=== PATIENT | male | born 1950 | race Caucasian/White ===

== ENCOUNTER → 2019-07-05 10:18 | Outpatient (CLI) | payer MEDICARE, SELFPAY ==
[2015-01-14 10:43] VITALS: BMI 36.9
[2019-07-05 13:29] LABS: M R Staph aureus DNA By PCR POSITIVE (Negative); Probe Check PASS
== END ==
PROVIDERS: Family Provider Internal Medicine; PCP Internal Medicine; Referring Provider Nurse Practitioner Gerontology; Visit Provider Nurse Practitioner Gerontology
DX: L98.9 Disorder of the skin and subcutaneous tissue, unspecified (principal)
CPT/HCPCS: 87641

== ENCOUNTER → 2019-08-21 09:48 | Outpatient (CLI) | payer MEDICARE, SELFPAY ==
--- NOTE | 2019-08-21 09:58 | RAD_ITS ---
HISTORY: CHRONIC RIGHT HIP PAIN ADDITIONAL HISTORY: None provided. TECHNIQUE: AP and lateral views of the right hip with AP pelvis Number of images including paperwork: 3 COMPARISON: None FINDINGS: BONES: No acute fracture. JOINTS: No subluxation. Severe degenerative changes of the right hip. Moderate degenerative changes of the left hip. Degenerative changes of the lower lumbar spine, sacroiliac joints and symphysis pubis. SOFT TISSUES: No distinct foreign body. Vascular calcifications. RAD/HIP, UNI W/ Pelvis 2-3 Views IMPRESSION: Degenerative changes without acute osseous abnormality. at 0548 Reported and signed by: Jo-Ann Guaman MD Electronically Signed: Jo-Ann Guaman MD at 5:48 EST Tel , Service support ,
== END ==
PROVIDERS: PCP Nurse Practitioner; Referring Provider Nurse Practitioner; Visit Provider Nurse Practitioner
DX: M16.11 Unilateral primary osteoarthritis, right hip (principal)
CPT/HCPCS: 73502

== ENCOUNTER → 2019-09-28 09:01 | Outpatient (CLI) | payer MEDICARE, SELFPAY ==
[2015-01-14 10:43] VITALS: BMI 36.9
--- NOTE | 2019-09-28 09:06 | RAD_ITS ---
STUDY: X-RAY - LEFT HAND REASON FOR EXAM: Male, 68 years old. LEFT RING FINGER PAIN AT PIP, NKI TECHNIQUE: 3 view(s) of the hand. COMPARISON: None. FINDINGS: Normal radiocarpal articulation. Normal distal radioulnar joint. Normal visualized carpal bones. Normal carpal articulations Normal carpometacarpal articulation of the thumb. Normal second through fifth carpometacarpal joints. Normal metacarpi. Normal metacarpophalangeal joint of the thumb. Normal interphalangeal joint of the thumb. Normal proximal and distal phalanges of the thumb. Normal metacarpophalangeal joints of the second through fifth fingers. Normal proximal and distal interphalangeal joints of the second through fifth fingers. Normal phalanges of the second through fifth fingers. The soft tissue structures are unremarkable. RAD/Hand Min 3 Views IMPRESSION: Normal x-ray examination of the hand. Electronically Signed: Oskar Adams MD at 12:14 EST Tel , Service support ,
== END ==
PROVIDERS: PCP Nurse Practitioner; Referring Provider Nurse Practitioner; Visit Provider Nurse Practitioner
DX: M25.542 Pain in joints of left hand (principal)
CPT/HCPCS: 73130

== ENCOUNTER → 2020-03-12 07:09 | Outpatient (CLI) | payer MEDICARE, SELFPAY ==
--- NOTE | 2020-03-12 07:33 | MRI_ITS ---
STUDY: MRI BRAIN WITH AND WITHOUT CONTRAST REASON FOR EXAM: Male, 69 years old. GRADUAL MEMORY LOSS OVER 3 YRS TECHNIQUE: Standardized multiplanar fat and water weighted pulse sequences were obtained. IV 23cc dotarem was administered for the contrast portion of the examination. COMPARISON: None. FINDINGS: There is mild cerebral atrophy with widening of the extra-axial spaces and ventricular dilatation. There are a limited number of small white matter hyperintensities, distributed throughout the deep white matter tracts of the cerebral hemispheres, consistent with mild chronic white matter ischemic changes. Chronic lacunar infarct of the left internal capsule. There is no evidence for recent intracranial ischemia or other cause of cytotoxic edema on diffusion weighted imaging (DWI). Normal T2* images of the brain without demonstrated susceptibility artifact. There is no demonstrated hemosiderin stain. Normal bilateral basal ganglia. Normal thalami. There is no extra-axial fluid accumulation. Normal flow voids within the major intracranial circulation suggesting patency by spin echo criteria. Normal venous enhancement. There is no enhancing intra-axial or extra-axial abnormality. Normal sella turcica, pituitary gland, infundibular stalk, optic chiasm and hypothalamus. Normal tectal plate and pineal gland. Normal midbrain, mil and medulla. Normal cerebellum. Normal basal cisterns. Normal bilateral temporal bones. Normal bilateral internal auditory canals. No demonstrated orbital abnormality, within the constraints of a routine brain study. There is mucoperiosteal inflammatory disease of the paranasal sinuses consistent with mild chronic sinusitis. Normal calvarium and skull base. Normal visualized soft tissue structures. Normal visualized upper cervical spine. MRI/Brain W/WO Contrast IMPRESSION: Involutional changes of the brain, as described above. Electronically Signed: Oskar Adams MD at 10:17 EDT Tel , Service support ,
[2020-03-12 09:06] LABS: CREATININE FINGERSTICK 1.4 mg/dL (0.70-1.30)
== END ==
PROVIDERS: PCP Nurse Practitioner; Referring Provider Nurse Practitioner; Visit Provider Nurse Practitioner
DX: R41.89 Other symptoms and signs involving cognitive functions and awareness (principal); R46.89 Other symptoms and signs involving appearance and behavior
CPT/HCPCS: 70553; A9575

== ENCOUNTER → 2020-08-27 07:45 | Outpatient (CLI) | payer MEDICARE, SELFPAY ==
--- NOTE | 2020-08-27 07:50 | RDU_ITS ---
Reason For Study: Hypertension Right Renal Artery Left Renal Artery Right renal artery ostium Left renal artery ostium 147.1/39 128.6/23.3 RSV/EDV. PSV/EDV. Right renal artery proximal Left renal artery proximal PSV/EDV 133/16.7 PSV/EDV. 162.7/44.1 . Right renal artery mid 111.1/18.9 Left renal artery mid 143.4/38.4 PSV/EDV. PSV/EDV . Right renal artery distal Left renal artery distal 146/35.7 135.3/22.8 PSV/EDV. PSV/EDV. Right RAR 1.43. Left RAR 1.73. Right Renal Parenchyma Left Renal Parenchyma Upper Pole Medula 36.6/9 PSV/EDV. Left upper pole medulla 36.1/6.4 Right upper pole medulla EDR 0.24 . PSV/EDV . Right upper pole medulla R.I. Left upper pole medulla EDR 0.18 . 0.76 . Left upper pole medulla R.I. 0.82 . Upper Sarabjit Cortx 18.2/5.3 PSV/EDV. UP Cortex 17.4/4.2 PSV/EDV. Right upper pole cortex EDR 0.29 . Left upper pole cortex EDR 0.24 . Right upper pole cortex R.I. 0.71 . Left upper pole cortex R.I. 0.76 . Right lower Pole medulla 28/5.9 Left lower Pole medulla 33.3/7.5 PSV/EDV . PSV/EDV . Right lower pole medulla EDR 0.21 . Left lower pole medulla EDR 0.22 . Right lower pole medulla R.I. Left lower pole medulla R.I. 0.78 . 0.79 . Lower Pole Cortx 15.7/4.2 PSV/EDV. Lower Pole Cortex 17.6/4.7 PSV/EDV. Left lower pole cortex EDR 0.27 . Right lower pole cortex EDR 0.27 . Left lower pole cortex R.I. 0.73 . Right lower pole cortex R.I. 0.73 . Left Renal Hilar Right Renal Hilar LT Hilar avg 45.3/10.6 PSV/EDV . Right Hilar avg 44.6/10.2 PSV/EDV. Left hilar acceleration time 50 Right hilar acceleration time 50 m/sec. m/sec. Left Renal Dimensions Right Renal Dimensions Left kidney size 12.23 cm . Right kidney size 13.67 cm . Left cortical dimension 1.86 cm . Right cortical dimension 1.93 cm . Nonvascualrized structure noted on the left kidney that measures 4.43 x 4.37 cm. Aorta Proximal abdominal aorta 1.80 x 1.82 cm . Proximal abdominal aorta peak systolic velocity is 94.3 cm/sec . Distal abdominal aorta 1.51 x 1.51 cm . Distal abdominal aorta peak systolic velocity is 110.7 cm/sec . Interpretation Summary Maximal aortic diameter 1.8 x 1.82 cm. Less than 60% stenosis bilateral renal arteries Right renal length maintained at 13.67 cm Left renal length maintained at 12.23 cm Nonvascular left renal cortical structure measuring 4.1 x 4.22 cm, findings suggest possible cyst. This would correlate with previous imaging of July 23, 2013 suggesting a left renal cyst Ordering Physician: Nithya Tracy Referring Physician: Ewa Bell Performed By: Leila Perdue RVT
== END ==
PROVIDERS: PCP Nurse Practitioner; Referring Provider Internal Medicine; Visit Provider Internal Medicine
DX: I10 Essential (primary) hypertension (principal)
CPT/HCPCS: 93975

== ENCOUNTER 2021-06-20 16:35 | Emergency (ER) | payer MEDICARE, SELFPAY ==
[2021-06-20 16:36] VITALS: BP 171/100; PULSE 73; RESP 18; TEMP 35.6; O2SAT 98; BMI 34.8
--- NOTE | 2021-06-20 16:48 | EKG12_ITS ---
Test Reason : NAUSEA Blood Pressure : / mmHG Vent. Rate : 068 BPM Atrial Rate : 068 BPM P-R Int : 180 ms QRS Dur : 106 ms QT Int : 424 ms P-R-T Axes : 022 -02 089 degrees QTc Int : 450 ms Normal sinus rhythm Nonspecific T wave abnormality Abnormal ECG Confirmed by KATHIE WILLS, CHRIS ([id number]), online content editor JOHNATHAN FARRIS ([id number]) on 06/22/2021 1:26:59 PM Referred By: MEG Confirmed By:CHRIS VÁZQUEZ MD
--- NOTE | 2021-06-20 16:49 | EDS_ITS ---
HPI History of Present Illness Chief Complaint: Nausea/Vomiting Detail of Chief Complaint: Nausea not feeling well for about a week Informant: patient Narrative Narrative: Patient presents to the emergency department stating he has been very nauseated over the last week. Patient also states his blood sugars have been erratic. He saw his nurse practitioner Sheree Spivey 3 days ago and had some blood work. Patient denies any chest pain or shortness of breath. He denies fever. He has had a little bit of a cough and sinus drainage. Patient has been taken Mucinex. Today he became very nauseated again so he came in. He denies abdominal pain. He denies diarrhea. He is not actually vomited. Patient has had the Covid vaccine. Prior similar symptoms: No [facility] Medical History (Updated 06/20/21 @ 19:[address] 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 Stroke Type 2 diabetes mellitus with hyperglycemia Home Medications fluticasone propionate 1 spray NASAL BID 07/10/13 [History Last Taken Unknown] hydrochlorothiazide 25 mg PO DAILY 07/10/13 [History Last Taken Unknown] lansoprazole [Prevacid] 30 mg PO DAILY 07/10/13 [History Last Taken Unknown] potassium chloride [Klor-Con 10] PO DAILY 07/10/13 [History Last Taken Unknown] simvastatin 40 mg PO QHS 07/10/13 [History Last Taken Unknown] tamsulosin 0.8 mg PO DAILY 07/10/13 [History Last Taken Unknown] amlodipine 5 mg tablet 5 mg PO DAILY tab 09/30/20 [History Last Taken Unknown] aspirin 81 mg tablet,delayed release 81 mg PO DAILY 09/30/20 [History Last Taken Unknown] atorvastatin 80 mg tablet 80 mg PO QPM tab 09/30/20 [History Last Taken Unknown] citalopram 40 mg tablet 40 mg PO DAILY tab 09/30/20 [History Last Taken Unknown] dapagliflozin 10 mg tablet tab PO 09/30/20 [History Last Taken Unknown] dextroamphetamine-amphetamine 10 mg tablet 10 tab PO DAILY 09/30/20 [History Last Taken Unknown] donepezil 5 mg tablet 5 mg PO QHS tab 09/30/20 [History Last Taken Unknown] fenofibrate nanocrystallized 145 mg tablet 145 mg PO DAILY #1 tab 09/30/20 [Rx Last Taken Unknown] metformin 1,000 mg tablet 1,000 mg PO BID tab 09/30/20 [History Last Taken Unknown] semaglutide 1 mg/dose (2 mg/1.5 mL) subcutaneous pen injector 1 mg SC QWEEK #9 ml 09/30/20 [Rx Last Taken Unknown] tolterodine 4 mg capsule,extended release 24 hr 4 mg PO DAILY cap 09/30/20 [History Last Taken Unknown] amlodipine 10 mg tablet 10 mg PO DAILY tab 04/02/21 [History Last Taken Unknown] ascorbic acid (vitamin C) 1,000 mg tablet 1 g PO Q6H 04/02/21 [History Last Taken Unknown] cholecalciferol (vitamin D3) 125 mcg (5,000 unit) capsule 125 mcg PO DAILY 04/02/21 [History Last Taken Unknown] donepezil 10 mg tablet 10 mg PO DAILY tab 04/02/21 [History Last Taken Unknown] folic acid 800 mcg tablet 0.8 mg PO DAILY 04/02/21 [History Last Taken Unknown] levothyroxine 150 mcg tablet 150 mcg PO DAILY 04/02/21 [History Last Taken Unknown] metoprolol succinate 25 mg tablet,extended release 24 hr 25 tablet PO DAILY 04/02/21 [History Last Taken Unknown] zinc 50 mg tablet 50 mg PO DAILY 04/02/21 [History Last Taken Unknown] glipizide 10 mg PO DAILY 06/20/21 [History Last Taken Unknown] losartan 100 mg PO DAILY 06/20/21 [History Last Taken Unknown] ondansetron 4 mg PO Q8H PRN PRN #10 tab 06/20/21 [Rx Last Taken Unknown] Allergy/AdvReac Type Severity Reaction Status Date / Time No Known Allergies Allergy Verified 06/20/21 16:37 Family History (Updated 10/02/20 @ 11:[address] Kavon Mathews MD) Other Diabetes Social History (Updated 10/02/20 @ 11:[address] Kavon Mathews MD) Smoking Status: Never smoker ROS ROS ED Constitutional Constitutional ED: Reports systems reviewed and no addt'l complaints, except as documented; Denies body ache(s), change in weight or chills Eyes Eyes: Denies acute decrease in peripheral vision, change in vision, double vision or loss of vision ENT ENT ED: Reports none; Denies ear pain, lip swelling, loss taste/smell, neck pain, otalgia or sore throat Cardiovascular Cardiovascular: Reports none; Denies abdominal pain, chest pain with activity, leg edema, lightheadedness, palpitations, rapid heart rate or syncope Respiratory/Chest Respiratory/Chest: Reports none and cough; Denies change in mental status, dry cough, dyspnea, hemoptysis, shortness of breath at rest or shortness of breath with exertion Gastrointestinal Gastrointestinal: Reports none, nausea and other Details: Decreased p.o. intake ; Denies abdominal pain, change in stool character, diarrhea, hematemesis, hematochezia, melena, rectal bleeding or vomiting Genitourinary Genitourinary ED: Reports none; Denies abdominal discomfort, anuria, dysuria, genital pain or polyuria Musculoskeletal Musculoskeletal: Reports none; Denies arthralgias, back pain, difficulty walking, extremity pain, muscle weakness or myalgias Integumentary Reports none; Denies abscess or rash Neurologic Neurologic: Reports none; Denies abnormal gait, confusion, focal weakness, frequent falls, headache(s), loss of vision, numbness, paresthesias, radicular pain, vertigo or weakness Psychiatric Psychiatric: Reports systems reviewed and no addt'l complaints, except as documented and none; Denies behavioral changes, confusion, difficulty concentrating, hallucinations, suicidal ideation, tactile hallucinations or visual hallucinations Endocrine Endocrinology: Denies none, cold intolerance, excessive sweating, fatigue or heat intolerance Hematologic/Lymphatic Hematologic/Lymphatic: Reports none; Denies anemia, easy bleeding or easy bruising Allergic/Immunologic Allergic/Immunologic ED: Denies as per HPI, none, lip swelling, mouth swelling, throat swelling, tongue swelling or hives EXAM Physical Exam Const Vital Signs: 06/20/21 16:36 Temperature 96.1 F L Temperature Source Temporal Pulse Rate 73 Respiratory Rate 18 Blood Pressure 171/100 H Blood Pressure Mean 123 Pulse Ox 98 Oxygen Delivery Method Room Air Positive well nourished and well developed General Appearance ED: well developed and NAD HEENT Reports TM's clear and moist mucous membranes normocephalic and atraumatic; Negative for trauma or tenderness Tympanic Membrane ED: Yes TM's clear Eyes PERRL and EOMs intact bilaterally General Eye ED: Negative for pale conjunctiva or scleral icterus Neck no lymphadenopathy, supple and no JVD General: Negative for tenderness Chest Wall inspection of chest normal and palpation of chest normal Chest: Negative for tenderness Resp normal respiratory effort and clear to auscultation bilaterally Effort and Inspection: Negative for respiratory distress or pain with movement Auscultation: Negative for rhonchi, wheezes or diminished lung sounds Cardio regular rate, regular rhythm, S1 normal heart sound, S2 normal heart sound and no murmurs Peripheral Pulses: pulses 2+ throughout GI normal to inspection, nondistended, normoactive bowel sounds, soft to palpation, non-tender, non-distended and no masses Back/Spine no CVA tenderness and no thoracic nor lumbar tenderness Extremity normal to inspection General Extremety ED: Negative for edema General Extremity: Negative for edema Neuro oriented x3, CN's II-XII intact bilaterally, no sensory deficits noted and gait normal Sensorium / Orientation: awake, alert, oriented to person, oriented to place and oriented to time Motor Exam: strength 5/5 throughout and strength abnormal Psych mental status grossly normal Skin no rashes or lesions noted and no wounds MDM MDM MDM Narrative Medical decision making narrative: IV line established on arrival. Patient was given Zofran 4 mg IV. He had good relief of his nausea with that. Work-up in the department is unremarkable. Etiology of his nausea is unclear. I will write him a prescription for some Zofran and have him follow-up with his primary care physician has he has an appointment in 5 days. Patient advised to return if vomiting, severe abdominal pain, or condition should worsen anyway. Lab Data Attestation: I reviewed the patient's lab results. Labs: Laboratory Results - last 24 hr 06/20/21 06/20/21 06/20/21 16:50 16:50 17:30 WBC 7.1 RBC 4.47 L Hgb 14.5 Hct 42.2 MCV 94.4 H MCH 32.4 H MCHC 34.4 RDW Std Deviation 45.9 H RDW Coeff of Misael 13.2 Plt Count 149 L MPV 10.0 Immature Gran % (Auto) 1.300 H Neut % (Auto) 71.8 H Lymph % (Auto) 13.2 L Yates % (Auto) 7.6 Eos % (Auto) 5.3 H Baso % (Auto) 0.8 Absolute Neuts (auto) 5.1 Absolute Lymphs (auto) 0.94 Nucleated RBC % 0 Sodium 134 L Potassium 4.3 Chloride 101 Carbon Dioxide 28.0 Anion Gap 5 BUN 30 H Creatinine 1.71 H Estim Creat Clear Calc 42.81 Est GFR (MDRD) Af Amer 51 L Est GFR (MDRD) Non-Af 42 L BUN/Creatinine Ratio 17.5 Glucose 70 L Calcium 9.3 Total Bilirubin 0.60 AST 48 H ALT 81 H Alkaline Phosphatase 56 Troponin I High Sens 15 Total Protein 8.0 Albumin 3.9 Globulin 4.1 Albumin/Globulin Ratio 1.0 Lipase 290 Urine Color Yellow Urine Clarity Sl. Cloudy Urine pH 6.0 Ur Specific Garrison 1.015 Urine Protein 30 H Urine Glucose (UA) 1000 H Urine Ketones Negative Urine Occult Blood Negative Urine Nitrite Negative Urine Bilirubin Negative Urine Urobilinogen 1 H Ur Leukocyte Esterase Negative Urine RBC 0 SEEN Urine WBC 0 SEEN Ur Squamous Epith Cells 0 SEEN Urine Bacteria 0 SEEN Urine Mucus 0 SEEN Radiography Chest X-Ray - ED: 1 View Diagnostic Testing: Clinical Impression(s) from Imaging Studies Chest X-Ray 06/20/21 17:59 IMPRESSION: No acute cardiopulmonary process. Electronically Signed: Chase Morton MD (Brooks) at 18:28 EST , Service support , 1 view chest x-ray obtained interpreted by myself as no acute disease process. EKG Initial EKG: Attestation: I personally reviewed and interpreted this EKG as follows: Comments: Sinus rhythm with a ventricular rate of 68 bpm with no acute ST segment changes. Discharge Plan Triage Chief Complaint: Nausea/Vomiting ED Provider: Juan Ocampo Dx/Rx/DC Orders Clinical Impression: Nausea Instructions: Nausea Vomit Control, ED Vomiting (Adult) Prescriptions: New ondansetron [ondansetron] 4 MG tablet 4 mg PO Q8H PRN PRN (Reason: Nausea) Qty: 10 RF: 0 No Action aspirin [Adult Aspirin Regimen] 81 mg tablet,delayed release (DR/EC) 81 mg PO DAILY RF: 0 amlodipine 5 mg tablet 5 mg PO DAILY RF: 0 citalopram 40 mg tablet 40 mg PO DAILY RF: 0 metformin 1,000 mg tablet 1,000 mg PO BID RF: 0 atorvastatin 80 mg tablet 80 mg PO QPM RF: 0 donepezil 5 mg tablet 5 mg PO QHS RF: 0 dapagliflozin 10 mg tablet PO RF: 0 dextroamphetamine-amphetamine 10 mg tablet 10 tab PO DAILY RF: 0 tolterodine 4 mg capsule,extended release 24hr 4 mg PO DAILY RF: 0 fenofibrate nanocrystallized 145 mg tablet 145 mg PO DAILY Qty: 1 RF: 0 Ozempic 1 mg/dose (2 mg/1.5 mL) pen injector 1 mg SC QWEEK Qty: 9 RF: 1 amlodipine 10 mg tablet 10 mg PO DAILY RF: 0 donepezil 10 mg tablet 10 mg PO DAILY RF: 0 metoprolol succinate 25 mg tablet extended release 24 hr 25 tablet PO DAILY RF: 0 folic acid 800 mcg tablet 0.8 mg PO DAILY RF: 0 levothyroxine 150 mcg tablet 150 mcg PO DAILY RF: 0 cholecalciferol (vitamin D3) 125 mcg (5,000 unit) capsule 125 mcg PO DAILY RF: 0 ascorbic acid (vitamin C) 1,000 mg tablet 1 g PO Q6H RF: 0 zinc 50 mg tablet 50 mg PO DAILY RF: 0 simvastatin 40 MG tablet 40 mg PO QHS RF: 0 tamsulosin 0.4 MG capsule 0.8 mg PO DAILY RF: 0 fluticasone propionate 1 SPRAY spray,suspension 1 spray NASAL BID RF: 0 potassium chloride [Klor-Con 10] 10 MEQ tablet extended release PO DAILY RF: 0 lansoprazole [Prevacid] 30 MG capsule 30 mg PO DAILY RF: 0 hydrochlorothiazide 25 MG tablet 25 mg PO DAILY RF: 0 glipizide 5 mg tablet extended release 24hr 10 mg PO DAILY RF: 0 losartan 100 mg tablet 100 mg PO DAILY RF: 0 Primary Care Provider: Ewa Bell NP Referrals: Ewa Bell NP, [employer] [Primary Care Provider] - 3-5 Days Disposition Disposition: Home, Self Care
[2021-06-20] MEDS: 0.9% Normal Saline 1,000 ML 150 ML IV (16:57)
[2021-06-20] MEDS: Ondansetron 4 MG/2 ML Vial IV (16:57)
[2021-06-20 17:01] LABS: Absolute Lymphocyte Count 0.94 X10^3/uL (0.83-4.51); Absolute Neutrophil Count 5.1 X10^3/uL (2.0-7.7); Basophil# 0.06 X10^3/uL; Basophil% 0.8 % (0-1); Eosinophil# 0.38 X10^3/uL; Eosinophils% 5.3 % (0-5); Hematocrit 42.2 % (40-54); Hemoglobin 14.5 g/dL (13.0-16.5); Lymphocyte # 0.94 X10^3/ul (0.83-4.51); Lymphocyte % 13.2 % (19-41); Mean Corp Hgb Conc 34.4 g/dL (32-36); Mean Corpuscular Hgb 32.4 pg (27.0-32.0); Mean Corpuscular Volume 94.4 fL (80-94); Monocyte# 0.54 X10^3/uL; Monocyte% 7.6 % (0-10); NRBC Flagged by Analyzer 0 % (0-5); Neutrophil # 5.13 X10^3/uL (2.7-7.7); Neutrophil % 71.8 % (47-70); Platelet Count 149 K/mm3 (150-450); RBC Distribution Width CV 13.2 % (11.6-14.6); RBC Distribution Width SD 45.9 fl (35.1-43.9); Red Blood Count 4.47 M/mm3 (4.6-6.2); White Blood Count 7.1 K/mm3 (4.4-11.0)
[2021-06-20 17:21] LABS: AST(SGOT) 48 U/L (15-37); Alanine Aminotransfer ALT/SGPT 81 U/L (16-61); Albumin, Serum 3.9 g/dL (3.2-5.0); Alkaline Phosphatase 56 U/L (45-117); Anion Gap 5 (5-15); BUN 30 mg/dL (7-18); BUN/Creat Ratio 17.5 RATIO (10-20); Calcium,Total 9.3 mg/dL (8.5-10.1); Chloride 101 mmol/L (98-107); Creatinine, Serum 1.71 mg/dL (0.70-1.30); EST Glomerular Filtration Rate 42 mL/min (>60); Est Glom Filt Rate - Afr Amer 51 mL/min (>60); Estimated Creatinine Clearance 42.81 ml/min; Globulin 4.1 g/dL (2.2-4.2); Glucose 70 mg/dL (74-106); Lipase 290 U/L (73-393); Potassium 4.3 mmol/L (3.5-5.1); Sodium Level 134 mmol/L (136-145); Troponin-I HS 15 pg/mL (3.0-78.0)
[2021-06-20 17:44] LABS: Bacteria 0 SEEN /hpf (None Seen); Mucous, Urine 0 SEEN /hpf (<or=2+); Red Blood Cells-Urine 0 SEEN /hpf (0-5); Squamous Epithelial Cells - UA 0 SEEN /hpf (0-5); White Blood Cells 0 SEEN /hpf (0-5)
[2021-06-20 17:45] LABS: Color, Urine Yellow (Yellow); Glucose, Dipstick 1000 mg/dl (Normal); Ketone-Dipstick Negative (Negative); Leukocyte Esterase-Dipstick Negative /ul (Negative); Nitrite-Dipstick Negative (Negative); Occult Blood-Urine Negative /ul (Negative); Protein-Dipstick 30 mg/dl (Negative); Specific Gravity, Urine 1.015 (1.002-1.030); Urine Bilirubin Dipstick Negative (Negative); Urine Clarity Sl. Cloudy (Clear); Urine Urobilinogen 1 mg/dl (Normal)
--- NOTE | 2021-06-20 17:59 | RAD_ITS ---
STUDY: X-RAY CHEST REASON FOR EXAM: Male, 70 years old. cough TECHNIQUE: AP COMPARISON: None. FINDINGS: Granulomata of the left lower lobe. No airspace consolidation. There is no demonstrated pleural abnormality. Normal size heart. Normal mediastinum and genaro. Normal visualized pulmonary arteries. There is atherosclerotic calcification of the aortic arch with tortuosity. Normal visualized thoracic spine. Normal visualized ribs, clavicles, and shoulders. There is no demonstrated abnormality of the visualized soft tissue structures of the upper abdomen. RAD/Chest 1 View (Portable) IMPRESSION: No acute cardiopulmonary process. Electronically Signed: Chase Morton MD (Brooks) at 18:28 EST , Service support ,
[2021-06-20 19:24] VITALS: BP 110/69; PULSE 70; RESP 15; O2SAT 98
== END 2021-06-20 19:28 | disposition home or self-care (01) ==
PROVIDERS: Emergency Provider Emergency Medicine; PCP Nurse Practitioner
DX: R11.0 Nausea (principal); I10 Essential (primary) hypertension; E11.42 Type 2 diabetes mellitus with diabetic polyneuropathy; E78.2 Mixed hyperlipidemia; Z79.82 Long term (current) use of aspirin; Z79.84 Long term (current) use of oral hypoglycemic drugs; Z79.899 Other long term (current) drug therapy; Z86.73 Personal history of transient ischemic attack (TIA), and cerebral infarction without residual deficits
CPT/HCPCS: 71045; 80053; 81001; 83690; 84484; 85025; 87426; 93005; 96361; 96374; 99284; J7030; A4216; J2405

== ENCOUNTER 2021-08-19 13:40 | Outpatient (CLI) | payer MEDICARE, SELFPAY ==
--- NOTE | 2021-08-19 14:00 | PET_ITS ---
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 COMPARISON EXAMINATION: None available TECHNIQUE: Following the intravenous administration of F-18 deoxyglucose, multiplanar image acquisitions of the neck, chest, abdomen and pelvis to level of mid thigh, obtained at one hour post radiopharmaceutical administration contemporaneously interpreted with the current CT of the neck, chest, abdomen and pelvis to level of mid thigh, dated 08/19/21 via coregistration reveal: HEIGHT: 72 inches. WEIGHT: 246 lbs. FINDINGS: 1. There is no quantitative scintigraphic evidence of abnormal increased glucose metabolism on meticulous inspection of whole body acquisitions to include all three axis reconstructions. 2. Normal physiologic distribution of the radiopharmaceutical is apparent in the hepatic and splenic parenchyma, both renal units, bladder and visualized intestinal tract. The visualized portion of the cerebral cortical-subcortical structures demonstrate symmetric and preserved glucose metabolism. Diffuse radiopharmaceutical concentration is noted in all four quadrants of the abdomen and pelvis. Prominent tracer uptake is observed in the oral cavity in proximity to dental hardware placement most consistent with metallic reconstruction artifact. (Pau, et al, AJR [id number], 2002). Pertinent CT findings are as follows: CHEST: There is atherosclerotic calcification defined in the thoracic aorta without evidence of dilatation-aneurysm formation. Coronary arterial calcification is observed. There are no parenchymal densities-nodules defined in the right and left hemithorax with discernible increased tracer concentration. Bilateral subcentimeter axillary soft tissue densities are ametabolic. ABDOMEN AND PELVIS: Calcified granuloma formation is encountered in the splenic parenchyma. There is atherosclerotic calcification defined in the abdominal aorta without evidence of dilatation-aneurysm formation. Abdominal-pelvic arterial calcification is defined. Bilateral fat containing inguinal hernias are noted. Right-left inguinal soft tissue densities with fatty hilus are ametabolic. Colonic diverticulosis is defined without evidence of diverticulitis. Subtle dystrophic calcification is manifest within the prostate gland without evidence of increased tracer uptake. SKELETAL: Degenerative changes are noted in the cervical, thoracic and lumbar spine without evidence of increased radiopharmaceutical concentration. PET/PET/CT Tumor Base -Thigh Init IMPRESSION: 1. NEGATIVE EXAMINATION. There is no definitive quantitative scintigraphic evidence of recurrent-metastatic/viable neoplasm. Electronic Signature Oskar Menard D.O. Accurate Quantification of SUVs for this report are calculated using the exclusive [employer]. ([place]. Patent No. [id number] [id number] 983). Standardization and correction of the FDG SUV metric via [employer] technology allow for vendor non-specific objective quantitative examination comparison and optimization of the sensitivity and specificity of the FDG PET-CT examination. Electronically Signed: Oskar Menard DO at 22:38 EST Tel , Service support ,
== END 2021-08-19 23:59 | disposition home or self-care (01) ==
LOC: ONC 13:41
PROVIDERS: PCP Nurse Practitioner; Referring Provider Nurse Practitioner; Visit Provider Nurse Practitioner
DX: C10.8 Malignant neoplasm of overlapping sites of oropharynx (principal)
CPT/HCPCS: 78815; A9552

== ENCOUNTER 2021-09-05 08:47 | Outpatient (CLI) | payer MEDICARE, SELFPAY ==
--- NOTE | 2021-09-05 09:00 | MRI_ITS ---
STUDY: MRI BRAIN WITHOUT CONTRAST REASON FOR EXAM: Male, 70 years old. DEMENTIA TECHNIQUE: Standardized multiplanar fat and water weighted pulse sequences were obtained. COMPARISON: 03/12/2020 FINDINGS: There is mild cerebral atrophy with widening of the extra-axial spaces and ventricular dilatation. There are a limited number of small white matter hyperintensities, distributed throughout the deep white matter tracts of the cerebral hemispheres, consistent with mild chronic white matter ischemic changes. Normal bilateral basal ganglia. Normal thalami. There is no extra-axial fluid accumulation. Normal sella turcica, pituitary gland, infundibular stalk, optic chiasm and hypothalamus. Normal tectal plate and pineal gland. There are chronic white matter ischemic changes of the mil. The midbrain and medulla are otherwise normal. Normal cerebellum. Moderate paranasal sinus disease. MRI/Brain without Contrast IMPRESSION: No acute intracranial abnormality. Electronically Signed: Deena Arshad MD at 8:15 EST ,
== END 2021-09-05 23:59 | disposition home or self-care (01) ==
LOC: MRI 08:47
PROVIDERS: PCP Nurse Practitioner; Referring Provider Nurse Practitioner; Visit Provider Nurse Practitioner
DX: F01.50 Vascular dementia, unspecified severity, without behavioral disturbance, psychotic disturbance, mood disturbance, and anxiety (principal)
CPT/HCPCS: 70551

== ENCOUNTER 2021-12-20 15:29 | Emergency (ER) | payer MEDICARE, SELFPAY ==
[2021-12-20 15:30] VITALS: BP 119/70; PULSE 77; RESP 14; TEMP 36.3; O2SAT 97; BMI 33.5
--- NOTE | 2021-12-20 15:50 | CT_ITS ---
STUDY: CT ABDOMEN AND PELVIS WITHOUT CONTRAST ENHANCEMENT OF 1652 HOURS ON 12/20/2021 REASON FOR EXAM: 71-year-old male with abdominal pain. RADIATION DOSAGE (If Supplied By Facility): CTDIvol = ( 17.51 ) mGy, DLP = ( 923.21 ) mGycm TECHNIQUE: Transaxial images were obtained from the dome of the diaphragm to the symphysis pubis without oral contrast, and without intravenous contrast. Sagittal and coronal images were reconstructed. COMPARISON: None. FINDINGS: The visualized lung bases are unremarkable. Borderline cardiomegaly is present. Normal liver. Normal gallbladder and extrahepatic biliary system. No cholelithiasis or cholecystitis. Normal-sized spleen with multiple splenic phleboliths. Normal pancreas. Pancreatitis or pancreatic mass lesions. Normal bilateral adrenal glands. Presence of a 5.9 cm in diameter simple cyst in the superior pole of the left kidney. Demonstration of a 2 mm calcification calculus or region of the superior midpole calyx of left kidney. No obstructive uropathy or pyelonephritis. Normal visualized stomach. Normal small intestine. No diverticulitis, colitis, or intestinal obstruction. Appendix is not visualized. There is a surgical clip appendix region suggestive of a previous appendectomy. Extensively calcified abdominal aorta without aneurysmal dilatation. Normal inferior vena cava. Normal retroperitoneum. No free fluid or free air. Normal urinary bladder. Moderately enlarged homogeneous lobulated prostate measuring 5.8 cm in diameter. Bilateral fat-containing inguinal hernias. Normal abdominal wall. No abscesses. Normal osseous structures. CT/Abdomen/Pelvis without Cont IMPRESSION: 1. No cholelithiasis or pancreatitis. 2. No obstructive uropathy or pyelonephritis. Normal bladder. 3. Previous appendectomy. 4. No diverticulitis, colitis, intestinal obstruction. 5. Moderately enlarged, heterogeneous lobulated prostate measuring 5.8 cm in diameter. 6. Bilateral fat-containing inguinal hernias. 7. Borderline cardiomegaly. 8. No other significant abnormalities. No abscesses or solid mass lesions. Electronically Signed: Bhavesh Silva MD at 17:20 EDT ,
--- NOTE | 2021-12-20 15:51 | EDS_ITS ---
HPI HPI - GI History of Present Illness Chief Complaint: Abd Pain Detail of Chief Complaint: Area and abdominal pain that started 5 days ago Informant: patient Narrative Narrative: Patient presents to the emergency department chief complaint of abdominal pain and diarrhea that started 5 days ago. Patient having about 10 watery stools a day. Patient at times has been incontinent of stool. He complains of some left lower quadrant pain. Patient states that he thinks he may have had diverticulitis before. Is been many years since he had a colonoscopy. He denies recent travel. He denies recent antibiotic usage. He denies sick contacts. He has had nausea but no vomiting. He denies fevers. He denies urinary symptoms. Prior similar symptoms: No [facility] Medical History (Updated 12/20/21 @ 18:[address] 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 Stroke Type 2 diabetes mellitus with hyperglycemia Type 2 diabetes mellitus with stage 3 chronic kidney disease Home Medications fluticasone propionate 1 spray NASAL BID 07/10/13 [History Last Taken Unknown] hydrochlorothiazide 25 mg PO DAILY 07/10/13 [History Last Taken Unknown] lansoprazole [Prevacid] 30 mg PO DAILY 07/10/13 [History Last Taken Unknown] potassium chloride [Klor-Con 10] PO DAILY 07/10/13 [History Last Taken Unknown] simvastatin 40 mg PO QHS 07/10/13 [History Last Taken Unknown] tamsulosin 0.8 mg PO DAILY 07/10/13 [History Last Taken Unknown] amlodipine 5 mg tablet 5 mg PO DAILY tab 09/30/20 [History Last Taken Unknown] aspirin 81 mg tablet,delayed release 81 mg PO DAILY 09/30/20 [History Last Taken Unknown] atorvastatin 80 mg tablet 80 mg PO QPM tab 09/30/20 [History Last Taken Unknown] citalopram 40 mg tablet 40 mg PO DAILY tab 09/30/20 [History Last Taken Unknown] dapagliflozin 10 mg tablet tab PO 09/30/20 [History Last Taken Unknown] donepezil 5 mg tablet 5 mg PO QHS tab 09/30/20 [History Last Taken Unknown] fenofibrate nanocrystallized 145 mg tablet 145 mg PO DAILY #1 tab 09/30/20 [Rx Last Taken Unknown] metformin 1,000 mg tablet 1,000 mg PO BID tab 09/30/20 [History Last Taken Unknown] tolterodine 4 mg capsule,extended release 24 hr 4 mg PO DAILY cap 09/30/20 [History Last Taken Unknown] amlodipine 10 mg tablet 10 mg PO DAILY tab 04/02/21 [History Last Taken Unknown] ascorbic acid (vitamin C) 1,000 mg tablet 1 g PO Q6H 04/02/21 [History Last Taken Unknown] cholecalciferol (vitamin D3) 125 mcg (5,000 unit) capsule 125 mcg PO DAILY 04/02/21 [History Last Taken Unknown] donepezil 10 mg tablet 10 mg PO DAILY tab 04/02/21 [History Last Taken Unknown] folic acid 800 mcg tablet 0.8 mg PO DAILY 04/02/21 [History Last Taken Unknown] metoprolol succinate 25 mg tablet,extended release 24 hr 25 tablet PO DAILY 09/21 [History Last Taken Unknown] zinc 50 mg tablet 50 mg PO DAILY 04/02/21 [History Last Taken Unknown] losartan 100 mg PO DAILY 06/20/21 [History Last Taken Unknown] ondansetron 4 mg PO Q8H PRN PRN #10 tab 06/20/21 [Rx Last Taken Unknown] dulaglutide 1.5 mg/0.5 mL subcutaneous pen injector 1.5 mg SUBCUT ml 10/01/21 [History Last Taken Unknown] dulaglutide 1.5 mg/0.5 mL subcutaneous pen injector 1.5 mg SUBCUT QWEEK #2 ml 10/01/21 [Rx Last Taken Unknown] glipizide 5 mg tablet, extended release 24 hr 5 mg PO DAILY #30 tab 10/01/21 [Rx Last Taken Unknown] levothyroxine 150 mcg tablet 150 mcg PO .daily, 2 on Tuesday tab 10/01/21 [History Last Taken Unknown] Allergy/AdvReac Type Severity Reaction Status Date / Time No Known Allergies Allergy Verified 12/20/21 15:32 Family History Other Diabetes Social History Smoking Status: Never smoker ROS ROS ED Constitutional Constitutional ED: Reports systems reviewed and no addt'l complaints, except as documented; Denies body ache(s), change in weight or chills Eyes Eyes: Denies acute decrease in peripheral vision, change in vision, double vision or loss of vision ENT ENT ED: Reports none; Denies ear pain, lip swelling, loss taste/smell, neck pain, otalgia or sore throat Cardiovascular Cardiovascular: Reports none; Denies abdominal pain, chest pain with activity, leg edema, lightheadedness, palpitations, rapid heart rate or syncope Respiratory/Chest Respiratory/Chest: Reports none; Denies change in mental status, dry cough, dyspnea, hemoptysis, shortness of breath at rest or shortness of breath with exertion Gastrointestinal Gastrointestinal: Reports none, abdominal pain, diarrhea and nausea; Denies change in stool character, hematemesis, hematochezia, melena or rectal bleeding Genitourinary Genitourinary ED: Reports none; Denies abdominal discomfort, anuria, dysuria, genital pain or polyuria Musculoskeletal Musculoskeletal: Reports none; Denies arthralgias, back pain, difficulty walking, extremity pain, muscle weakness or myalgias Integumentary Reports none; Denies abscess or rash Neurologic Neurologic: Reports none; Denies abnormal gait, confusion, focal weakness, frequent falls, headache(s), loss of vision, numbness, paresthesias, radicular pain, vertigo or weakness Psychiatric Psychiatric: Reports systems reviewed and no addt'l complaints, except as documented and none; Denies behavioral changes, confusion, difficulty concentrating, hallucinations, suicidal ideation, tactile hallucinations or visual hallucinations Endocrine Endocrinology: Denies none, cold intolerance, excessive sweating, fatigue or heat intolerance Hematologic/Lymphatic Hematologic/Lymphatic: Reports none; Denies anemia, easy bleeding or easy bruising Allergic/Immunologic Allergic/Immunologic ED: Denies as per HPI, none, lip swelling, mouth swelling, throat swelling, tongue swelling or hives EXAM Physical Exam Const Vital Signs: 12/20/21 15:30 12/20/21 18:00 Temperature 97.4 F L Temperature Source Temporal Pulse Rate 77 78 Respiratory Rate 14 16 Blood Pressure 119/70 166/94 H Blood Pressure Mean 86 118 Pulse Ox 97 99 Oxygen Delivery Method Room Air Room Air Positive well nourished and well developed General Appearance ED: well developed and NAD HEENT Reports TM's clear and moist mucous membranes normocephalic and atraumatic; Negative for trauma or tenderness Tympanic Membrane ED: Yes TM's clear Eyes PERRL and EOMs intact bilaterally General Eye ED: Negative for pale conjunctiva or scleral icterus Neck no lymphadenopathy, supple and no JVD General: Negative for tenderness Chest Wall inspection of chest normal and palpation of chest normal Chest: Negative for tenderness Resp normal respiratory effort and clear to auscultation bilaterally Effort and Inspection: Negative for respiratory distress or pain with movement Auscultation: Negative for rhonchi, wheezes or diminished lung sounds Cardio regular rate, regular rhythm, S1 normal heart sound, S2 normal heart sound and no murmurs Peripheral Pulses: pulses 2+ throughout GI normal to inspection, nondistended, normoactive bowel sounds, soft to palpation, non-distended and no masses GI Narrative: Patient with mild tenderness over left lower quadrant with some guarding. There is no rebound, rigidity, or peritoneal signs. Palpation: tender Back/Spine no CVA tenderness and no thoracic nor lumbar tenderness Extremity normal to inspection General Extremety ED: Negative for edema General Extremity: Negative for edema Neuro oriented x3, CN's II-XII intact bilaterally, no sensory deficits noted and gait normal Sensorium / Orientation: awake, alert, oriented to person, oriented to place and oriented to time Motor Exam: strength 5/5 throughout and strength abnormal Psych mental status grossly normal Skin no rashes or lesions noted and no wounds MDM MDM MDM Narrative Medical decision making narrative: IV line established on arrival. Patient was given a liter normal saline fluid bolus. CBC with differential was unremarkable. Chemistries unremarkable. He did have some renal insufficiency which I suspect some of which may be dehydrational. His lactate was 2.0. Patient had stool sent for enteric pathogens those results will be pending. CT scan of the M pelvis was unremarkable other than some chronic changes and large prostate which she knows about and is being followed up for. This point I suspect a viral gastroenteritis. Patient advised to use Imodium as needed for the diarrhea. Patient advised to push fluids. Patient to follow-up with primary care physician 3 to 5 days. Lab Data Attestation: I reviewed the patient's lab results. Labs: Laboratory Results - last 24 hr 12/20/21 12/20/21 12/20/21 16:00 16:00 16:00 WBC 5.1 RBC 4.71 Hgb 15.0 Hct 44.2 MCV 93.8 MCH 31.8 MCHC 33.9 RDW Std Deviation 44.8 H RDW Coeff of Misael 13.0 Plt Count 170 MPV 10.1 Immature Gran % (Auto) 0.600 Neut % (Auto) 73.9 H Lymph % (Auto) 10.2 L [place] % (Auto) 13.1 H Eos % (Auto) 2.0 Baso % (Auto) 0.2 Absolute Neuts (auto) 3.8 Absolute Lymphs (auto) 0.52 L Nucleated RBC % 0 Differential Comment SCANNED Sodium 138 Potassium 3.4 L Chloride 109 H Carbon Dioxide 22.0 Anion Gap 7 BUN 42 H Creatinine 1.87 H Estim Creat Clear Calc 38.59 Est GFR (MDRD) Af Amer 46 L Est GFR (MDRD) Non-Af 38 L BUN/Creatinine Ratio 22.5 H Glucose 131 H Lactic Acid 2.0 Calcium 8.6 Radiography Diagnostic Testing: Clinical Impression(s) from Imaging Studies Abdomen/Pelvis CT 12/20/21 15:50 IMPRESSION: 1. No cholelithiasis or pancreatitis. 2. No obstructive uropathy or pyelonephritis. Normal bladder. 3. Previous appendectomy. 4. No diverticulitis, colitis, intestinal obstruction. 5. Moderately enlarged, heterogeneous lobulated prostate measuring 5.8 cm in diameter. 6. Bilateral fat-containing inguinal hernias. 7. Borderline cardiomegaly. 8. No other significant abnormalities. No abscesses or solid mass lesions. Electronically Signed: Bhavesh Silva MD at 17:20 EDT Reading Location ID and State: [address] [place] [address] Tel , Service support , Discharge Plan Triage Chief Complaint: Abd Pain ED Provider: Juan Ocampo Dx/Rx/DC Orders Clinical Impression: Viral gastroenteritis Instructions: ED Gastroenteritis, Viral (Adult) Prescriptions: No Action aspirin [Adult Aspirin Regimen] 81 mg tablet,delayed release (DR/EC) 81 mg PO DAILY RF: 0 amlodipine 5 mg tablet 5 mg PO DAILY RF: 0 citalopram 40 mg tablet 40 mg PO DAILY RF: 0 metformin 1,000 mg tablet 1,000 mg PO BID RF: 0 atorvastatin 80 mg tablet 80 mg PO QPM RF: 0 donepezil 5 mg tablet 5 mg PO QHS RF: 0 dapagliflozin 10 mg tablet PO RF: 0 tolterodine 4 mg capsule,extended release 24hr 4 mg PO DAILY RF: 0 fenofibrate nanocrystallized 145 mg tablet 145 mg PO DAILY Qty: 1 RF: 0 amlodipine 10 mg tablet 10 mg PO DAILY RF: 0 donepezil 10 mg tablet 10 mg PO DAILY RF: 0 metoprolol succinate 25 mg tablet extended release 24 hr 25 tablet PO DAILY RF: 0 folic acid 800 mcg tablet 0.8 mg PO DAILY RF: 0 cholecalciferol (vitamin D3) 125 mcg (5,000 unit) capsule 125 mcg PO DAILY RF: 0 ascorbic acid (vitamin C) 1,000 mg tablet 1 g PO Q6H RF: 0 zinc 50 mg tablet 50 mg PO DAILY RF: 0 Trulicity 1.5 mg/0.5 mL pen injector 1.5 mg subcut RF: 0 Trulicity 1.5 mg/0.5 mL pen injector 1.5 mg subcut QWEEK Qty: 2 RF: 0 glipizide 5 mg tablet extended release 24hr 5 mg PO DAILY Qty: 30 RF: 0 levothyroxine 150 mcg tablet 150 mcg PO .daily, 2 on Tuesday RF: 0 simvastatin 40 MG tablet 40 mg PO QHS RF: 0 tamsulosin 0.4 MG capsule 0.8 mg PO DAILY RF: 0 fluticasone propionate 1 SPRAY spray,suspension 1 spray NASAL BID RF: 0 potassium chloride [Klor-Con 10] 10 MEQ tablet extended release PO DAILY RF: 0 lansoprazole [Prevacid] 30 MG capsule 30 mg PO DAILY RF: 0 hydrochlorothiazide 25 MG tablet 25 mg PO DAILY RF: 0 losartan 100 mg tablet 100 mg PO DAILY RF: 0 ondansetron [ondansetron] 4 MG tablet 4 mg PO Q8H PRN PRN (Reason: Nausea) Qty: 10 RF: 0 Primary Care Provider: Ewa Bell NP Referrals: Ewa Bell NP, [employer] [Primary Care Provider] - 3-5 Days Disposition Disposition: Home, Self Care
[2021-12-20] MEDS: 0.9% Normal Saline 1,000 ML 1000 ML IV (16:04)
[2021-12-20 16:06] LABS: Absolute Lymphocyte Count 0.52 X10^3/uL (0.83-4.51); Absolute Neutrophil Count 3.8 X10^3/uL (2.0-7.7); Basophil# 0.01 X10^3/uL; Basophil% 0.2 % (0-1); Hematocrit 44.2 % (40-54); Lymphocyte # 0.52 X10^3/ul (0.83-4.51); Lymphocyte % 10.2 % (19-41); Mean Corp Hgb Conc 33.9 g/dL (32-36); Mean Corpuscular Hgb 31.8 pg (27.0-32.0); Mean Corpuscular Volume 93.8 fL (80-94); Mean Platelet Vol. 10.1 fl (6.2-12.0); Monocyte# 0.67 X10^3/uL; Monocyte% 13.1 % (0-10); NRBC Flagged by Analyzer 0 % (0-5); Neutrophil # 3.77 X10^3/uL (2.7-7.7); Neutrophil % 73.9 % (47-70); POSITIVE DIFFERENTIAL YES; Platelet Count 170 K/mm3 (150-450); RBC Distribution Width SD 44.8 fl (35.1-43.9); Red Blood Count 4.71 M/mm3 (4.6-6.2); White Blood Count 5.1 K/mm3 (4.4-11.0)
[2021-12-20 16:10] LABS: Differential Indicated SCAN CRITERIA MET
[2021-12-20 16:27] LABS: Anion Gap 7 (5-15); BUN 42 mg/dL (7-18); BUN/Creat Ratio 22.5 RATIO (10-20); Calcium,Total 8.6 mg/dL (8.5-10.1); Chloride 109 mmol/L (98-107); Creatinine, Serum 1.87 mg/dL (0.70-1.30); EST Glomerular Filtration Rate 38 mL/min (>60); Est Glom Filt Rate - Afr Amer 46 mL/min (>60); Estimated Creatinine Clearance 38.59 ml/min; Glucose 131 mg/dL (74-106); Potassium 3.4 mmol/L (3.5-5.1); Sodium Level 138 mmol/L (136-145)
[2021-12-20 16:55] LABS: Differential Comment SCANNED
[2021-12-20 18:00] VITALS: BP 166/94; PULSE 78; RESP 16; O2SAT 99
[2021-12-20 18:11] VITALS: BP 142/79; PULSE 76; RESP 16; O2SAT 96
[2021-12-20 20:02] LABS: Reflex Lactate? Y
== END 2021-12-20 18:22 | disposition home or self-care (01) ==
PROVIDERS: Emergency Provider Emergency Medicine; PCP Nurse Practitioner; Visit Provider Emergency Medicine
DX: A08.4 Viral intestinal infection, unspecified (principal); E11.22 Type 2 diabetes mellitus with diabetic chronic kidney disease; E11.42 Type 2 diabetes mellitus with diabetic polyneuropathy; N18.30 Chronic kidney disease, stage 3 unspecified; I12.9 Hypertensive chronic kidney disease with stage 1 through stage 4 chronic kidney disease, or unspecified chronic kidney disease; E78.2 Mixed hyperlipidemia; E03.9 Hypothyroidism, unspecified; Z79.82 Long term (current) use of aspirin; Z79.84 Long term (current) use of oral hypoglycemic drugs; Z79.899 Other long term (current) drug therapy; Z86.73 Personal history of transient ischemic attack (TIA), and cerebral infarction without residual deficits
CPT/HCPCS: 74176; 80048; 83605; 85025; 87506; 96360; 96361; 99283; J7030; A4216

== ENCOUNTER → 2021-12-24 | Outpatient (CLI) | payer MEDICARE, SELFPAY ==
--- NOTE | 2021-12-24 12:35 | CT_ITS ---
EXAM: CT MAXILLOFACIAL SINUSES WITHOUT INTRAVENOUS CONTRAST CLINICAL INDICATION: SINUSITIS Technologist Notes SINUS INFECTION ONE MONTH AGO, SINUS SURG, HTN, DB, PREV SINUS SURG pain TECHNIQUE: Helically acquired images were obtained of the maxillofacial sinuses without intravenous contrast. This CT exam was performed using one or more of the following dose reduction techniques: automated exposure control, adjustment of the mA and/or kV according to patient size, and/or use of iterative reconstruction technique. This report was created using [employer] report generation technology. RADIATION DOSE: CTDIvol = 28.14 mGy, DLP = 668.8 mGy-cm COMPARISON: None. FINDINGS: MAXILLARY SINUSES: Mild right and left maxillary sinus disease. Previous sinus surgery noted. There are bilateral antral windows. Ethmoidectomy changes. There is mild ethmoid sinus disease. Ostiomeatal complexes are normally formed. SPHENOID SINUSES: Clear. FRONTAL SINUSES: Clear. ETHMOID AIR CELLS: See above. NASAL CAVITY/SEPTUM: Nasal septum is midline. Nasal turbinates are unremarkable. MASTOID AIR CELLS: There is right mastoid air cell disease. BONES/JOINTS: Inflammatory changes along the right side of the neck at the level of the mandibular angle consistent for small hematoma. Acute fracture of the right C2 and C3 transverse process. Fracture does not appear to go into the transverse foramen. ORBITS: Unremarkable. DENTAL: Unremarkable as visualized. No periodontal osseous erosion. CT/Sinus/Facial Bone IMPRESSION: 1. Mild right and left maxillary sinus disease. Previous sinus surgery noted. There are bilateral antral windows. Ethmoidectomy changes. There is mild ethmoid sinus disease. 2. There is right mastoid air cell disease. 3. Inflammatory changes along the right side of the neck at the level of the mandibular angle consistent for small hematoma. Acute fracture of the right C2 and C3 transverse process. Fracture does not appear to go into the transverse foramen. Electronically Signed: Coy Nguyen MD at 14:25 EDT ,
== END | disposition home or self-care (01) ==
LOC: CT 12:29
PROVIDERS: PCP Nurse Practitioner; Visit Provider Otolaryngology
DX: J32.8 Other chronic sinusitis (principal)
CPT/HCPCS: 70486

== ENCOUNTER 2022-05-09 20:01 | Emergency (ER) | payer MEDICARE, SELFPAY ==
[2022-05-09 20:01] VITALS: BP 191/168; PULSE 82; RESP 16; TEMP 36.9; O2SAT 95; BMI 31.1
--- NOTE | 2022-05-09 20:35 | EX.ED.DYSGE1 ---
HPI <AYDEN Monae - Last Filed: 05/09/22 21:06> History of Present Illness Chief Complaint: Fall Narrative Narrative: 71-year-old male with history of diabetes, hypothyroidism, obesity, history of stroke, dementia presents to the emergency department after mechanical fall. Patient was carrying a heavy wooden chest, he was going around a corner when he lost his balance, he has laceration to the left hand, fell forward striking his head and face on the chest. He denies any LOC. Patient does have slight nose pain, left-sided facial pain. Patient is currently not on any blood thinners. Patient remembers the entire event. Patient states he is here because his lacerations in his fingers seem deep. His tetanus vaccination is unknown. 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 Stroke Type 2 diabetes mellitus with hyperglycemia Type 2 diabetes mellitus with stage 3 chronic kidney disease Home Medications fluticasone propionate 50 mcg/actuation nasal spray,suspension 1 spray BID 07/10/13 [History Last Taken Unknown] hydrochlorothiazide 25 mg tablet 25 mg PO DAILY 07/10/13 [History Last Taken Unknown] lansoprazole 30 mg capsule,delayed release (Prevacid) 30 mg PO BID 07/10/13 [History Last Taken Unknown] tamsulosin 0.4 mg capsule 0.8 mg PO DAILY 07/10/13 [History Last Taken Unknown] aspirin 81 mg tablet,delayed release (Adult Aspirin Regimen) 81 mg PO DAILY 09/30/20 [History Last Taken Unknown] atorvastatin 80 mg tablet 80 mg PO QPM 09/30/20 [History Last Taken Unknown] citalopram 40 mg tablet 40 mg PO DAILY 09/30/20 [History Last Taken Unknown] dapagliflozin 10 mg tablet 10 mg PO DAILY 09/30/20 [History Last Taken Unknown] fenofibrate nanocrystallized 145 mg tablet 145 mg PO DAILY #1 TAB 09/30/20 [Rx Last Taken Unknown] metformin 1,000 mg tablet 1,000 mg PO BID 09/30/20 [History Last Taken Unknown] amlodipine 10 mg tablet 10 mg PO DAILY 04/02/21 [History Last Taken Unknown] ascorbic acid (vitamin C) 1,000 mg tablet 1 g PO DAILY 04/02/21 [History Last Taken Unknown] cholecalciferol (vitamin D3) 125 mcg (5,000 unit) capsule 125 mcg PO DAILY 04/02/21 [History Last Taken Unknown] donepezil 10 mg tablet 10 mg PO QHS 04/02/21 [History Last Taken Unknown] folic acid 800 mcg tablet 0.8 mg PO DAILY 04/02/21 [History Last Taken Unknown] metoprolol succinate 25 mg tablet,extended release 24 hr 25 tablet PO DAILY 04/02/21 [History Last Taken Unknown] zinc 50 mg tablet 50 mg PO DAILY 04/02/21 [History Last Taken Unknown] losartan 100 mg tablet 100 mg PO DAILY 06/20/21 [History Last Taken Unknown] dulaglutide 1.5 mg/0.5 mL subcutaneous pen injector (Trulicity) 1.5 mg (0.5 mL) subcut QWEEK #2 mL 10/01/21 [Rx Last Taken Unknown] glipizide 5 mg tablet, extended release 24 hr 5 mg PO DAILY #30 tabs 10/01/21 [Rx Last Taken Unknown] levothyroxine 150 mcg tablet 150 mcg PO .daily, 2 on Tuesday10/01/21 [History Last Taken Unknown] loratadine 10 mg tablet (Claritin) 10 mg PO DAILY 12/20/21 [History Last Taken Unknown] methylphenidate HCl 36 mg tablet,extended release 24 hr 36 mg PO DAILY 12/20/21 [History Last Taken Unknown] montelukast 10 mg tablet (Singulair) 10 mg PO DAILY 12/20/21 [History Last Taken Unknown] Allergy/AdvReac Type Severity Reaction Status Date / Time No Known Allergies Allergy Verified 05/09/22 20:05 Family History Other Diabetes Social History Smoking Status: Never smoker ROS <AYDEN Monae - Last Filed: 05/09/22 21:06> ROS ED ROS Narrative Constitutional: Negative for fever, chills, weight loss, weakness Eyes: Negative for vision loss, vision change, double vision ENT: Negative for any sore throat, ear pain, congestion. Positive left-sided facial pain, left-sided epistaxis Cardiovascular: Negative for any chest pain, tightness, palpitations Respiratory: Negative for any cough, sputum production, hemoptysis, dyspnea, dyspnea on exertion, orthopnea Gastrointestinal: Negative for any abdominal pain, nausea, vomiting, diarrhea, constipation, blood in stool, blood in vomit : Negative for any urinary frequency, dysuria, retention, blood in urine Muscle skeletal: Negative for any muscle joint pain, stiffness, myalgias, arthralgias, neck pain, back pain. Positive for left hand pain, left finger pain Neurological: Negative for any headache, syncope, numbness or tingling, dizziness Skin: Negative for any rashes, lumps, itching, abrasions, positive for laceration to the left third and fourth fingers Psychiatric: Negative for any depression, anxiety, stress, suicidal ideation, homicidal ideation Hematologic: Negative for any easy bruising, excessive bruising, easy bleeding Allergies: Negative for any eczema, hives, rash EXAM <AYDEN Monae - Last Filed: 05/09/22 21:06> Physical Exam Narrative Exam Narrative: Vital signs reviewed. HEET: Head normocephalic atraumatic, TMs clear bilaterally. Posterior pharynx is clear, moist mucous membranes. Nares clear bilaterally. Pupils are equal round reactive to light. EOMs are intact. Negative for any hemotympanum, septal hematoma. Patient does have dried blood around the left nares, negative for any epistaxis at this time. Neck: Supple with no lymphadenopathy or tenderness. No signs of meningismus, negative jolt sign. Cardiac: Regular rate and rhythm no murmurs gallops or rubs, equal peripheral pulses bilaterally. Respiratory: Lungs clear to auscultation bilaterally. No chest tenderness. Abdomen: Soft, nontender, nondistended. No abdominal bruit or pulsatile masses. No hepatosplenomegaly Extremities: No peripheral edema, no signs of gross trauma or deformity. Active full range of motion of all extremities. Patient has pain to the left hand with 2 lacerations, full range of motion. Neuro: Cranial nerves II through XII intact, no focal neurological deficits. Skin: Clean dry and intact with no rash, purpura, petechiae, vesicles or pustules. She has a 0.5 cm laceration to the fourth digit just below the anterior aspect. Patient also has a 1 cm laceration below the DIP joint anteriorly on the third digit. There is no tendon involvement. Patient has full range of motion is able to flex and extend against resistance. Backs/flank: No CVA tenderness, no midline spinal tenderness, no deformity. Psych: Normal mood and affect. No SI, HI or acute psychosis. Const Vital Signs: 05/09/22 20:01 05/09/22 20:17 Temperature 98.5 F Temperature Source Temporal Pulse Rate 82 Respiratory Rate 16 Respiratory Effort Normal Non-Labored Respiratory Depth Normal Respiratory Pattern Normal Blood Pressure 191/168 H Blood Pressure Mean 175 Pulse Ox 95 Oxygen Delivery Method Room Air Room Air Positive well nourished and well developed General Appearance ED: well developed <Dr. Allie Houston MD - Last Filed: 05/09/22 21:14> Physical Exam Const Vital Signs: 05/09/22 20:01 05/09/22 20:17 Temperature 98.5 F Temperature Source Temporal Pulse Rate 82 Respiratory Rate 16 Respiratory Effort Normal Non-Labored Respiratory Depth Normal Respiratory Pattern Normal Blood Pressure 191/168 H Blood Pressure Mean 175 Pulse Ox 95 Oxygen Delivery Method Room Air Room Air MDM <AYDEN Monae - Last Filed: 05/09/22 21:06> MDM Treatment and Re-Evaluation Narrative: Patient appears well, patient appears nontoxic, vital signs are stable. Patient presents to the emergency department after mechanical fall from a standing position onto a chest striking the left side of his head. Patient does have 2 lacerations to his fingers on his left hand which prompted him to come in. Patient's neurological exam was unremarkable, patient is currently on any blood thinners, no LOC, patient has no visual deformities, no abrasions, a CT scan/radiology is not indicated at this time. Patient does have 2 lacerations to the third and fourth digit on the left hand, no tendon involvement. His wounds were irrigated copiously with normal saline. Anesthetized using digital block with lidocaine. I was able place 1 simple interrupted suture of 4-0 Ethilon and the fourth digit, I placed 4 simple erupted sutures and the larger laceration on the third digit which measured 1 cm. Patient tolerated well. Patient will have these removed in 10 to 12 days. He will be receiving a tetanus vaccination here, instructed take Tylenol for any pain. Patient given return precautions and is stable for discharge peer <Dr. Allie Houston MD - Last Filed: 05/09/22 21:14> [facility] Narrative Medical decision making narrative: I have personally performed a face to face assessment of the patient and have reviewed the TOBIAS Note. I performed a substantive portion of the visit including all aspects of the following. My schaefer findings include: History is 71-year-old male presenting after fall. Patient had a mechanical fall falling forward onto a chest that he was carrying. He has 2 lacerations of his left hand. He is not on anticoagulants. No loss of consciousness. No vomiting. No headache. Exam is vitals are stable. GCS 15. Patient is alert no acute distress. Dried blood in nares. No septal hematoma. Pupils equal round reactive to light. Extraocular muscles intact. Midface stable. Neck is nontender. Heart is regular rate and rhythm. Lungs are clear and equal. Laceration third and fourth digit left hand. Tendon function intact. Neurovascularly intact. Medical Decision Making: laceration repair. Advised wound care instructions. Advised to follow-up with primary care physician. Advised return to ED if worsening complaints. Other additions or changes: None Treatment and Re-Evaluation Narrative: Patient appears well, patient appears nontoxic, vital signs are stable. Patient presents to the emergency department after mechanical fall from a standing position onto a chest striking the left side of his head. Patient does have 2 lacerations to his fingers on his left hand which prompted him to come in. Patient's neurological exam was unremarkable, patient is currently not on any blood thinners, no LOC, patient has no visual deformities, no abrasions, a CT scan/radiology is not indicated at this time. Patient does have 2 lacerations to the third and fourth digit on the left hand, no tendon involvement. His wounds were irrigated copiously with normal saline. Anesthetized using digital block with lidocaine. I was able place 1 simple interrupted suture of 4-0 Ethilon and the fourth digit, I placed 4 simple interrupted sutures in the larger laceration on the third digit which measured 1 cm. Patient tolerated well. Patient will have these removed in 10 to 12 days. He will be receiving a tetanus vaccination here, instructed take Tylenol for any pain. Patient given return precautions and is stable for discharge peer Procedures <AYDEN Monae - Last Filed: 05/09/22 21:06> Lacerations Less than 0.5 cm laceration left fourth digit: Length: 0.2 in Depth: Skin Shape: Linear Prep: Sterile Conditions and Shure-Clens Laceration repair: Irrigated and Lidocaine Irrigated (ml): 100 Number of Sutures/[place]: 1 Suture Information: Ethilon and 4-0 1 similar laceration left third digit: Length: 0.39 in Depth: Skin Shape: Linear Prep: Sterile Conditions and Shure-Clens Laceration repair: Irrigated and Lidocaine Irrigated (ml): 200 Number of Sutures/[place]: 4 Suture Information: Ethilon, Simple and 4-0 Comment: Sterile gloves, sterile drapes were used. Discharge Plan Triage Chief Complaint: Fall ED Midlevel Provider: Koko Link ED Provider: Allie Houston Dx/Rx/DC Orders Clinical Impression: Fall, CHI (closed head injury), Contusion of nose, Finger laceration Instructions: After a Concussion, ED Facial Contusion, ED Head Injury (Adult), ED Nasal Contusion, ED Laceration Hand with ... Prescriptions: No Action aspirin [Adult Aspirin Regimen] 81 mg tablet,delayed release (DR/EC) 81 mg PO DAILY citalopram 40 mg tablet 40 mg PO DAILY metformin 1,000 mg tablet 1,000 mg PO BID atorvastatin 80 mg tablet 80 mg PO QPM dapagliflozin 10 mg tablet 10 mg PO DAILY fenofibrate nanocrystallized 145 mg tablet 145 mg PO DAILY Qty: 1 0RF amlodipine 10 mg tablet 10 mg PO DAILY donepezil 10 mg tablet 10 mg PO QHS metoprolol succinate 25 mg tablet extended release 24 hr 25 tablet PO DAILY folic acid 800 mcg tablet 0.8 mg PO DAILY cholecalciferol (vitamin D3) 125 mcg (5,000 unit) capsule 125 mcg PO DAILY ascorbic acid (vitamin C) 1,000 mg tablet 1 g PO DAILY zinc 50 mg tablet 50 mg PO DAILY Trulicity 1.5 mg/0.5 mL pen injector 1.5 mg subcut QWEEK Qty: 2 0RF glipizide 5 mg tablet extended release 24hr 5 mg PO DAILY Qty: 30 0RF levothyroxine 150 mcg tablet 150 mcg PO .daily, 2 on Tuesday tamsulosin 0.4 MG capsule 0.8 mg PO DAILY fluticasone propionate 1 SPRAY spray,suspension 1 spray NASAL BID lansoprazole [Prevacid] 30 MG capsule 30 mg PO BID hydrochlorothiazide 25 MG tablet 25 mg PO DAILY losartan 100 mg tablet 100 mg PO DAILY montelukast [Singulair] 10 mg Tablet 10 mg PO DAILY loratadine [Claritin] 10 mg Tablet 10 mg PO DAILY methylphenidate HCl 36 mg tablet extended release 24hr 36 mg PO DAILY Label Comments: TAKE 1 TABLET BY MOUTH ONCE DAILY IN THE MORNING Primary Care Provider: Jada Arzola Referrals: Ewa Bell [employer], [employer] [Non-Staff] - Activity Restrictions/Additional Instructions: You will need to get the sutures out in 10 to 12 days. Keep them clean and dry. Return for any signs or symptoms of redness or infection. Ice sore areas. He may take Tylenol for any problems Disposition Disposition: Home, Self Care
[2022-05-09] MEDS: Lidocaine 1% (20 ml mdv) 20 ML Vial 3 ML INFILT (20:43)
[2022-05-09] MEDS: Diphth,Pertuss(Acell),Tet Vac 0.5 ML Vial IM (21:06)
[2022-05-09 21:10] VITALS: BP 218/123; PULSE 82; RESP 22; O2SAT 95
== END 2022-05-09 21:23 | disposition home or self-care (01) ==
PROVIDERS: Emergency Provider Emergency Medicine; PCP Nurse Practitioner Family; Visit Provider Emergency Medicine
DX: S61.213A Laceration without foreign body of left middle finger without damage to nail, initial encounter (principal); F03.90 Unspecified dementia, unspecified severity, without behavioral disturbance, psychotic disturbance, mood disturbance, and anxiety; E11.22 Type 2 diabetes mellitus with diabetic chronic kidney disease; E11.42 Type 2 diabetes mellitus with diabetic polyneuropathy; S06.9X0A Unspecified intracranial injury without loss of consciousness, initial encounter; N18.30 Chronic kidney disease, stage 3 unspecified; S61.218A Laceration without foreign body of other finger without damage to nail, initial encounter; S00.33XA Contusion of nose, initial encounter; W01.10XA Fall on same level from slipping, tripping and stumbling with subsequent striking against unspecified object, initial encounter; Y93.89 Activity, other specified; E78.2 Mixed hyperlipidemia; E03.9 Hypothyroidism, unspecified; E66.9 Obesity, unspecified; I12.9 Hypertensive chronic kidney disease with stage 1 through stage 4 chronic kidney disease, or unspecified chronic kidney disease; Z68.31 Body mass index [BMI] 31.0-31.9, adult; Z79.82 Long term (current) use of aspirin; Z79.84 Long term (current) use of oral hypoglycemic drugs; Z79.899 Other long term (current) drug therapy; Z86.73 Personal history of transient ischemic attack (TIA), and cerebral infarction without residual deficits; Z23 Encounter for immunization
CPT/HCPCS: 12001; 90471; 90715; 99282

== ENCOUNTER → 2022-10-19 | Outpatient (CLI) | payer MEDICARE, SELFPAY ==
--- NOTE | 2022-10-19 08:43 | RDU_ITS ---
Reason For Study: Hypertension Right Renal Artery Left Renal Artery Right renal artery ostium Left renal artery ostium 206.7/54.7 140.7/26.7 RSV/EDV. PSV/EDV. Right renal artery proximal Left renal artery proximal PSV/EDV 131.9/24.8 PSV/EDV. 171.1/32.0 . Right renal artery mid 154.2/23.4 Left renal artery mid 121.0/27.2 PSV/EDV. PSV/EDV . Right renal artery distal 88.5/13.6 Left renal artery distal 71.3/14.4 PSV/EDV. PSV/EDV. Right RAR 1.74. Left RAR 2.34. Right Renal Parenchyma Left Renal Parenchyma Upper Pole Medula 28.2/7.9 PSV/EDV. Left upper pole medulla 34.6/10.9 Right upper pole medulla EDR 0.30 . PSV/EDV . Right upper pole medulla R.I. Left upper pole medulla EDR 0.30 . 0.72 . Left upper pole medulla R.I. 0.69 . Upper Sarabjit Cortx 17.0/4.3 PSV/EDV. UP Cortex 17.8/4.8 PSV/EDV. Right upper pole cortex EDR 0.30 . Left upper pole cortex EDR 0.30 . Right upper pole cortex R.I. 0.75 . Left upper pole cortex R.I. 0.73 . Right lower Pole medulla 24.8/4.8 Left lower Pole medulla 30.5/5.6 PSV/EDV . PSV/EDV . Right lower pole medulla EDR 0.20 . Left lower pole medulla EDR 0.30 . Right lower pole medulla R.I. Left lower pole medulla R.I. 0.82 . 0.81 . Lower Pole Cortx 24.6/8.1 PSV/EDV. Lower Pole Cortex 17.4/4.3 PSV/EDV. Left lower pole cortex EDR 0.30 . Right lower pole cortex EDR 0.20 . Left lower pole cortex R.I. 0.67 . Right lower pole cortex R.I. 0.75 . Left Renal Hilar Right Renal Hilar LT Hilar avg 87.5/14.9 PSV/EDV . Right Hilar avg 130.9/10.8 PSV/EDV. Left hilar acceleration time 20 Right hilar acceleration time 50 m/sec. m/sec. Left Renal Dimensions Right Renal Dimensions Left kidney size 11.62 cm . Right kidney size 13.09 cm . Left cortical dimension 1.39 cm . Right cortical dimension 1.86 cm . Anechoic structure noted on Lt kidney measuring approximately 4.86 x 4.28. Aorta Proximal abdominal aorta 2.31 x 2.37 cm . Distal abdominal aorta 1.39 x 1.49 cm . Proximal abdominal aorta peak systolic velocity is 67.4 cm/sec . Distal abdominal aorta peak systolic velocity is 88.5 cm/sec . Procedures Technically difficult study due to bowel gas. VL/Renal Artery Duplex Ultrasound Interpretation Summary Maximal aortic diameter proximally at 2.31 x 2.37 cm with normal aortic flow ve locity Less than 60% stenosis right renal artery Maintained right renal length of 13.09 cm Less than 60% stenosis left renal artery Maintained left renal length of 11.62 cm 4.86 x 4.28 anechoic nonvascular left renal structure appears to be a cyst, cli nical correlation would be appropriate The examination was noted to be technically difficult secondary to bowel gas Ordering Physician: Jada Arzola Referring Physician: Jada Arzola Performed By: Kingston Pierre RVT
== END | disposition home or self-care (01) ==
LOC: CVS 08:42
PROVIDERS: PCP Nurse Practitioner Family; Referring Provider Nurse Practitioner Family; Visit Provider Nurse Practitioner Family
DX: N18.30 Chronic kidney disease, stage 3 unspecified (principal)
CPT/HCPCS: 93975

== ENCOUNTER → 2022-10-23 | Outpatient (CLI) | payer MEDICARE, SELFPAY ==
--- NOTE | 2022-10-23 11:15 | US_ITS ---
INDICATION: cyst of kidney EXAMINATION: Ultrasound US Kidney(s) complete (eg, kidneys and bladder) TECHNIQUE: Johnston scale and color doppler images were obtained of the kidneys. COMPARISON: None. FINDINGS: RIGHT KIDNEY: The right kidney measures 13.3 cm in length. There is no hydronephrosis. No shadowing calculus, focal lesion or perinephric collection is demonstrated. LEFT KIDNEY: The left kidney measures 14.0 cm in length. There is no hydronephrosis. There is a simple appearing 5.7 x 4.5 cm left renal cyst No shadowing calculus or perinephric collection is demonstrated. URINARY BLADDER: There is irregularity of the bladder wall consistent with bladder trabeculation. The prostate gland is enlarged measuring 5.7 x 4.9 x 4.5 cm US/Kidney and Bladder IMPRESSION: Enlarged prostate gland. Trabeculated urinary bladder. Simple appearing 5.7 x 4.5 cm left renal cyst. Electronically Signed: Yadi Pastrana MD at 14:38 EDT ,
== END | disposition home or self-care (01) ==
LOC: US 11:13
PROVIDERS: PCP Nurse Practitioner Family; Referring Provider Nurse Practitioner Family; Visit Provider Nurse Practitioner Family
DX: N28.1 Cyst of kidney, acquired (principal)
CPT/HCPCS: 76770

== ENCOUNTER → 2022-12-29 | Outpatient (CLI) | payer MEDICARE, SELFPAY ==
[2022-12-29 15:06] LABS: Color, Urine Yellow (Yellow); Glucose, Dipstick 1000 mg/dl (Normal); Ketone-Dipstick Negative (Negative); Leukocyte Esterase-Dipstick Negative /ul (Negative); Nitrite-Dipstick Negative (Negative); Occult Blood-Urine 25 /ul (Negative); Protein-Dipstick 500 mg/dl (Negative); Specific Gravity, Urine 1.015 (1.002-1.030); Urine Bilirubin Dipstick Negative (Negative); Urine Clarity Clear (Clear); Urine Urobilinogen Normal (Normal)
[2022-12-29 15:49] LABS: Anion Gap 7 (5-15); BUN 47 mg/dL (7-18); BUN/Creat Ratio 14.5 RATIO (10-20); Calcium,Total 8.9 mg/dL (8.5-10.1); Chloride 108 mmol/L (98-107); Creatinine, Serum 3.24 mg/dL (0.70-1.30); EST Glomerular Filtration Rate 20 mL/min (>60); Est Glom Filt Rate - Afr Amer 24 mL/min (>60); Glucose 128 mg/dL (74-106); Potassium 3.9 mmol/L (3.5-5.1); Sodium Level 138 mmol/L (136-145)
[2022-12-29 15:58] LABS: Protein, Urine (Random) 560.2 mg/dL (<11.9); Protein:Creat Ratio 7980 mg/g CRE (0-200)
[2022-12-31 12:09] LABS: ANTINUCLEAR ANTIBODIES DIRECT Negative (Negative)
[2022-12-31 17:07] LABS: Complement C3 131 mg/dL (82-167); Cytoplasmic Ab (C-ANCA) <1:20 titer (Neg:<1:20); Free Lambda Light Chains 57.5 mg/L (5.7-26.3); PROEL- A/G Ratio 1.1 (0.7-1.7); PROEL- Alpha-1 Globulin 0.2 g/dL (0.0-0.4); PROEL- Alpha-2 Globulin 0.8 g/dL (0.4-1.0); PROEL- Gamma Globulin 0.7 g/dL (0.4-1.8); PROEL- Globulin, Total 2.7 g/dL (2.2-3.9); PROEL- TOTAL PROTEIN 5.7 g/dL (6.0-8.5); Perinuclear Ab (P-ANCA) <1:20 titer (Neg:<1:20)
== END | disposition home or self-care (01) ==
LOC: LAB 14:10
PROVIDERS: PCP Nurse Practitioner Family; Referring Provider Internal Medicine; Visit Provider Internal Medicine
DX: N18.9 Chronic kidney disease, unspecified (principal)
CPT/HCPCS: 36415; 80048; 81002; 82570; 83883; 84156; 84165; 86038; 86160; 86256

== ENCOUNTER 2023-01-30 21:47 | Inpatient (IN) | payer MEDICARE, SELFPAY ==
[2023-01-30 21:48] VITALS: BP 166/77; PULSE 77; RESP 20; TEMP 37; O2SAT 94; BMI 31.8
[2023-01-30 21:50] VITALS: BP 203/87; PULSE 71; RESP 15; TEMP 36.6; O2SAT 98
[2023-01-30 22:05] VITALS: O2SAT 98
--- NOTE | 2023-01-30 22:09 | EKG12_ITS ---
Test Reason : SHORTNESS OF BREATH Blood Pressure : / mmHG Vent. Rate : 074 BPM Atrial Rate : 074 BPM P-R Int : 208 ms QRS Dur : 108 ms QT Int : 416 ms P-R-T Axes : 024 035 039 degrees QTc Int : 461 ms Sinus rhythm with marked sinus arrhythmia with occasional Premature ventricular complexes Nonspecific T wave abnormality Prolonged QT Abnormal ECG Confirmed by KATHIE WILLS, CHRIS ([id number]), manager editorial JOHNATHAN FARRIS ([id number]) on 01/31/2023 12:33:13 PM Referred By: PAYTON Confirmed By:CHRIS VÁZQUEZ MD
--- NOTE | 2023-01-30 22:12 | ED.VIS.DYS ---
HPI History of Present Illness Chief Complaint: Shortness of Breath Informant: patient Onset/Context/Timing Onset: Today Context: gradual Timing: Continuous Quality: Positive for Dyspnea on exertion Worsened by: Exertion Relieved by: Rest Associated Symptoms cough and post nasal drip; Negative for rhinorrhea, ear pain, fever, sore throat, chills, sweats, clear sputum, white sputum, yellow sputum or green sputum Chest Pain: Positive for None Narrative Narrative: Patient presents with shortness of breath that began today. Patient states it is gradually gotten worse throughout the day today. Patient states that his breathing is worse with any exertion. Patient states he had to stop when he was going upstairs to catch his breath. Patient states his breathing is better with rest. Patient admits to some postnasal drainage and a cough. Patient denies any sputum production. Patient denies any fevers or chills. Patient denies any chest pain. PE Risk Factors: Negative for Cancer, OCP + Smoking + > 35, Prior DVT or PE, Recent immobilization, Recent surgery or Recent travel [facility] Medical History (Updated 01/31/23 @ 00:[address] Jeremy Pemberton, ) Benign hypertension Chronic peripheral neuropathic pain CKD (chronic kidney disease), stage III Diabetes mellitus, type 2 Fatty liver History of CVA (cerebrovascular accident) Hypothyroidism (acquired) Mixed hyperlipidemia Squamous cell cancer of hypopharynx Home Medications fluticasone propionate 50 mcg/actuation nasal spray,suspension 1 spray BID 07/10/13 [History Last Taken Unknown] hydrochlorothiazide 25 mg tablet 25 mg PO DAILY 07/10/13 [History Last Taken Unknown] lansoprazole 30 mg capsule,delayed release (Prevacid) 30 mg PO BID 07/10/13 [History Last Taken Unknown] tamsulosin 0.4 mg capsule 0.8 mg PO DAILY 07/10/13 [History Last Taken Unknown] aspirin 81 mg tablet,delayed release (Adult Aspirin Regimen) 81 mg PO DAILY 09/30/20 [History Last Taken Unknown] atorvastatin 80 mg tablet 80 mg PO QPM 09/30/20 [History Last Taken Unknown] citalopram 40 mg tablet 40 mg PO DAILY 09/30/20 [History Last Taken Unknown] fenofibrate nanocrystallized 145 mg tablet 145 mg PO DAILY #1 TAB 09/30/20 [Rx Last Taken Unknown] metformin 1,000 mg tablet 1,000 mg PO BID 09/30/20 [History Last Taken Unknown] amlodipine 10 mg tablet 10 mg PO DAILY 04/02/21 [History Last Taken Unknown] ascorbic acid (vitamin C) 1,000 mg tablet 1 g PO DAILY 04/02/21 [History Last Taken Unknown] cholecalciferol (vitamin D3) 125 mcg (5,000 unit) capsule 125 mcg PO DAILY 04/02/21 [History Last Taken Unknown] donepezil 10 mg tablet 10 mg PO QHS 04/02/21 [History Last Taken Unknown] folic acid 800 mcg tablet 0.8 mg PO DAILY 04/02/21 [History Last Taken Unknown] metoprolol succinate 25 mg tablet,extended release 24 hr 25 tablet PO DAILY 04/02/21 [History Last Taken Unknown] zinc 50 mg tablet 50 mg PO DAILY 04/02/21 [History Last Taken Unknown] levothyroxine 150 mcg tablet 150 mcg PO .daily, 2 on Tuesday10/01/21 [History Last Taken Unknown] loratadine 10 mg tablet (Claritin) 10 mg PO DAILY 12/20/21 [History Last Taken Unknown] methylphenidate HCl 36 mg tablet,extended release 24 hr 36 mg PO DAILY 12/20/21 [History Last Taken Unknown] montelukast 10 mg tablet (Singulair) 10 mg PO DAILY 12/20/21 [History Last Taken Unknown] losartan 100 mg tablet 100 mg PO DAILY #90 tabs 05/27/22 [Rx Last Taken Unknown] glipizide 5 mg tablet, extended release 24 hr 5 mg PO DAILY #90 tabs 09/28/22 [Rx Last Taken Unknown] dulaglutide 3 mg/0.5 mL subcutaneous pen injector (Trulicity) 3 mg (0.5 mL) subcut QWEEK #2 mL 10/20/22 [Rx Last Taken Unknown] blood sugar diagnostic (OneTouch Ultra Test strips) #100 ea 01/19/23 [Rx Last Taken Unknown] blood-glucose meter (LearneratorTouch Ultra2 Meter) #1 ea 01/19/23 [Rx Last Taken Unknown] dapagliflozin propanediol 10 mg tablet 5 mg PO DAILY 01/30/23 [History Last Taken Unknown] hydralazine 50 mg tablet 100 mg PO TID 01/30/23 [History Last Taken Unknown] lisdexamfetamine 70 mg capsule (Vyvanse) 70 mg PO DAILY 01/30/23 [History Last Taken Unknown] losartan 50 mg tablet 50 mg PO DAILY 01/30/23 [History Last Taken Unknown] metoprolol succinate 50 mg tablet,extended release 24 hr 50 mg PO DAILY 01/30/23 [History Last Taken Unknown] Allergy/AdvReac Type Severity Reaction Status Date / Time No Known Allergies Allergy Verified 05/09/22 20:05 Family History (Updated 01/31/23 @ 00:[address] Danna Johnson MD) Mother Breast cancer Other Diabetes Surgical History (Updated 01/31/23 @ 00:[address] Danna Johnson MD) History of tonsillectomy and adenoidectomy History of total hip replacement S/P nasal surgery Social History (Updated 01/31/23 @ 00:[address] Danna Johnson MD) household members: spouse Smoking Status: Never smoker alcohol intake: current alcohol intake frequency: holidays/special occasions only substance use type: does not use ROS ROS ED Constitutional Constitutional ED: Denies chills or fever(s) Eyes Eyes: Denies blurry vision or change in vision ENT ENT ED: Denies rhinorrhea or sore throat Cardiovascular Cardiovascular: Denies chest pain or palpitations Respiratory/Chest Respiratory/Chest: Reports cough and dyspnea Gastrointestinal Gastrointestinal: Reports nausea; Denies vomiting Genitourinary Genitourinary ED: Denies dysuria or hematuria Musculoskeletal Musculoskeletal: Reports back pain; Denies neck pain Integumentary Denies abscess or rash Neurologic Neurologic: Denies headache(s) or weakness Allergic/Immunologic Allergic/Immunologic ED: Denies mouth swelling or urticaria EXAM Physical Exam Const Vital Signs: 01/30/23 21:48 01/30/23 21:50 01/30/23 22:05 Temperature 98.6 F 97.8 F Temperature Source Temporal Temporal Pulse Rate 77 71 Respiratory Rate 20 H 15 Respiratory Effort Short of Breath Respiratory Depth Deep Respiratory Pattern Normal Blood Pressure 166/77 H 203/87 H Blood Pressure Mean 106 125 Pulse Ox 94 98 Oxygen Delivery Method Room Air Nasal Cannula Nasal Cannula Oxygen Flow Rate (L/min) 2 2 01/30/23 23:18 Temperature Temperature Source Pulse Rate 77 Respiratory Rate Respiratory Effort Respiratory Depth Respiratory Pattern Blood Pressure 177/148 H Blood Pressure Mean Pulse Ox Oxygen Delivery Method Oxygen Flow Rate (L/min) Positive well nourished, well developed and obese General Appearance ED: well developed and NAD Nutritional Appearance: obese HEENT normocephalic and atraumatic Eyes PERRL and EOMs intact bilaterally Neck supple and no JVD Chest Wall palpation of chest normal Resp normal respiratory effort Effort and Inspection: Negative for respiratory distress Auscultation: rales bilateral lower and 1/2 way up Cardio regular rate and regular rhythm GI normal to inspection, nondistended, normoactive bowel sounds, soft to palpation and non-distended Palpation: tender RLQ (Mild) and RUQ (Mild); Negative for guarding or rebound tenderness present Extremity normal to inspection General Extremety ED: Yes edema; Negative for tenderness General Extremity: edema bilateral lower extremity Details: moderate Neuro oriented x3, CN's II-XII intact bilaterally and no sensory deficits noted Sensorium / Orientation: awake and alert Motor Exam: strength 5/5 throughout Psych mental status grossly normal MDM MDM MDM Narrative Medical decision making narrative: Differential diagnosis includes congestive heart failure, pneumonia, COPD, hypertensive urgency, pneumothorax, cardiac dysrhythmia, cardiac ischemia. Patient has a Wells score of 0. I do not think this is from a pulmonary embolism. EKG will be obtained to assess for cardiac dysrhythmia and cardiac ischemia. Chest x-ray will be obtained to assess for congestive heart failure and pneumonia. CBC will be obtained to assess for leukocytosis and anemia. Comprehensive metabolic profile will be obtained to assess for hepatic function, renal function, and electrolyte abnormality. High-sensitivity troponin will be obtained to assess for cardiac ischemia. 2-hour repeat high-sensitivity troponin will be obtained to assess for ongoing cardiac ischemia. BNP will be obtained to assess for congestive heart failure. History & Record Review Additional record(s) reviewed:: Prior labs Lab Data Attestation: I reviewed the patient's lab results. Lab results narrative: BC was reviewed. There is a mild anemia with a hemoglobin of 10.0 and hematocrit 28.6. Comprehensive metabolic profile was reviewed. CO2 was slightly low at 20. Chloride was slightly elevated at 110. BUN was 48 and creatinine was 4.65. Creatinine is increased from previous results. High-sensitivity troponin was reviewed and was normal at 36. BNP was reviewed and was elevated at 748.7. Labs: Laboratory Results - last 24 hr 01/30/23 22:05 WBC 8.4 RBC 3.08 L Hgb 10.0 L Hct 28.6 L MCV 92.9 MCH 32.5 H MCHC 35.0 RDW Std Deviation 43.9 RDW Coeff of Misael 13.0 Plt Count 160 MPV 10.9 Immature Gran % (Auto) 0.700 Neut % (Auto) 78.8 H Lymph % (Auto) 8.5 L Trigg % (Auto) 7.5 Eos % (Auto) 4.0 Baso % (Auto) 0.5 Absolute Neuts (auto) 6.6 Absolute Lymphs (auto) 0.72 L Nucleated RBC % 0 Sodium 136 Potassium 4.3 Chloride 110 H Carbon Dioxide 20.0 L Anion Gap 6 BUN 48 H Creatinine 4.65 H Estim Creat Clear Calc 15.76 Est GFR (MDRD) Af Amer 16 L Est GFR (MDRD) Non-Af 13 L BUN/Creatinine Ratio 10.3 Glucose 99 Calcium 8.5 Total Bilirubin 0.30 AST 33 ALT 66 H Alkaline Phosphatase 125 H Troponin I High Sens 36 B-Natriuretic Peptide 748.7 H Total Protein 6.5 Albumin 2.8 L Globulin 3.7 Albumin/Globulin Ratio 0.8 L Radiography Diagnostic Testing: Clinical Impression(s) from Imaging Studies Chest X-Ray 01/30/23 22:34 IMPRESSION: Moderate congestive heart failure. Electronically Signed: Oskar Adams MD at 22:55 EDT , PA and lateral chest x-ray was obtained. There are 2 views. On my independent interpretation, lung hill show moderate congestive heart failure. There is moderate cardiomegaly. Bony thorax is normal. Radiologist also interpreted the x-ray and agrees. EKG Initial EKG: Attestation: I personally reviewed and interpreted this EKG as follows: Interpretation: Sinus Rhythm (With occasional PVCs with a rate of 74) and Non-Specific ST Changes Comments: EKG was obtained. On my independent interpretation, it shows a normal sinus rhythm with a rate of 74 with occasional PVCs. SD interval was slightly prolonged at 208 ms. QRS interval was normal at 108 ms. QTc interval was normal at 461 ms. [place] was normal at 25. There are nonspecific ST-T wave changes noted. Prior EKG tracings: available for review Prior: Unchanged (06/20/2021) Differential Diagnosis Chest pain/SOB: pulmonary embolism Reason(s) PE less likely: Positive for Well's <3 and not tachycardic Treatment and Re-Evaluation :: Patient was given Lasix and nitroglycerin ointment here. Patient states he was feeling better on reevaluation. Patient's blood pressure improved to 177/148 after Lasix and nitroglycerin. Case was discussed with the hospitalist. She will admit the patient to PCU. Patient and spouse understood and was agreeable with the plan. All questions were answered. Discharge Plan Triage Chief Complaint: Shortness of Breath ED Provider: Jeremy Pemberton Dx/Rx/DC Orders Clinical Impression: Type 2 diabetes mellitus with stage 3 chronic kidney disease, Benign hypertension, Congestive heart failure Prescriptions: No Action aspirin [Adult Aspirin Regimen] 81 mg tablet,delayed release (DR/EC) 81 mg PO DAILY citalopram 40 mg tablet 40 mg PO DAILY metformin 1,000 mg tablet 1,000 mg PO BID atorvastatin 80 mg tablet 80 mg PO QPM fenofibrate nanocrystallized 145 mg tablet 145 mg PO DAILY Qty: 1 0RF amlodipine 10 mg tablet 10 mg PO DAILY donepezil 10 mg tablet 10 mg PO QHS metoprolol succinate 25 mg tablet extended release 24 hr 25 tablet PO DAILY folic acid 800 mcg tablet 0.8 mg PO DAILY cholecalciferol (vitamin D3) 125 mcg (5,000 unit) capsule 125 mcg PO DAILY ascorbic acid (vitamin C) 1,000 mg tablet 1 g PO DAILY zinc 50 mg tablet 50 mg PO DAILY levothyroxine 150 mcg tablet 150 mcg PO .daily, 2 on Tuesday glipizide 5 mg tablet extended release 24hr 5 mg PO DAILY Qty: 90 3RF tamsulosin 0.4 MG capsule 0.8 mg PO DAILY fluticasone propionate 1 SPRAY spray,suspension 1 spray NASAL BID lansoprazole [Prevacid] 30 MG capsule 30 mg PO BID hydrochlorothiazide 25 MG tablet 25 mg PO DAILY montelukast [Singulair] 10 mg Tablet 10 mg PO DAILY loratadine [Claritin] 10 mg Tablet 10 mg PO DAILY methylphenidate HCl 36 mg tablet extended release 24hr 36 mg PO DAILY Hold Instructions: Order Changed Patient Comments: TAKE 1 TABLET BY MOUTH ONCE DAILY IN THE MORNING losartan 50 mg tablet 50 mg PO DAILY metoprolol succinate 50 mg tablet extended release 24 hr 50 mg PO DAILY hydralazine 50 mg tablet 100 mg PO TID Vyvanse 70 mg capsule 70 mg PO DAILY dapagliflozin propanediol 10 mg tablet 5 mg PO DAILY losartan 100 mg tablet 100 mg PO DAILY Qty: 90 1RF Trulicity 3 mg/0.5 mL pen injector 3 mg subcut QWEEK Qty: 2 5RF (DME) OneTouch Ultra Test Strip See Rx Instructions .Route Qty: 100 5RF Rx Instructions: BID (DME) blood-glucose meter [OneTouch Ultra2 Meter] Misc See Rx Instructions .Route Qty: 1 0RF Rx Instructions: As directed Primary Care Provider: Jada Arzola Referrals: Jada Arzola, CAROL-C [Primary Care Provider] - Disposition Disposition: Acute Care Hospital [facility]
[2023-01-30 22:18] LABS: Absolute Lymphocyte Count 0.72 X10^3/uL (0.83-4.51); Absolute Neutrophil Count 6.6 X10^3/uL (2.0-7.7); Basophil# 0.04 X10^3/uL; Basophil% 0.5 % (0-1); Eosinophil# 0.34 X10^3/uL; Hematocrit 28.6 % (40-54); Lymphocyte # 0.72 X10^3/ul (0.83-4.51); Lymphocyte % 8.5 % (19-41); Mean Corpuscular Hgb 32.5 pg (27.0-32.0); Mean Corpuscular Volume 92.9 fL (80-94); Mean Platelet Vol. 10.9 fl (6.2-12.0); Monocyte# 0.63 X10^3/uL; Monocyte% 7.5 % (0-10); NRBC Flagged by Analyzer 0 % (0-5); Neutrophil # 6.64 X10^3/uL (2.7-7.7); Neutrophil % 78.8 % (47-70); Platelet Count 160 K/mm3 (150-450); RBC Distribution Width SD 43.9 fl (35.1-43.9); Red Blood Count 3.08 M/mm3 (4.6-6.2); White Blood Count 8.4 K/mm3 (4.4-11.0)
--- NOTE | 2023-01-30 22:34 | RAD_ITS ---
STUDY: X-RAY CHEST REASON FOR EXAM: Male, 72 years old. Dyspnea TECHNIQUE: PA and lateral views of the chest. COMPARISON: 09/28/2022 FINDINGS: Reticular opacities within the lungs consistent with interstitial pulmonary edema. Tiny left pleural effusion. There is moderate cardiac enlargement. Normal mediastinum and genaro. There is prominence of the pulmonary hilar arteries and peripheral pulmonary arteries, consistent with congestive heart failure (CHF). Normal visualized aortic arch and descending thoracic aorta. Normal visualized thoracic spine. Normal visualized ribs, clavicles, and shoulders. There is no demonstrated abnormality of the visualized soft tissue structures of the upper abdomen. RAD/Chest PA and Lateral IMPRESSION: Moderate congestive heart failure. Electronically Signed: Oskar Adams MD at 22:55 EDT ,
[2023-01-30 22:40] LABS: BNP,B-Type NATRIURETIC PEPTIDE 748.7 pg/mL (0-100)
[2023-01-30 22:41] LABS: ALB/GLOB Ratio 0.8 RATIO (0.9-2.4); AST(SGOT) 33 U/L (15-37); Alanine Aminotransfer ALT/SGPT 66 U/L (16-61); Albumin, Serum 2.8 g/dL (3.2-5.0); Alkaline Phosphatase 125 U/L (45-117); Anion Gap 6 (5-15); BUN 48 mg/dL (7-18); BUN/Creat Ratio 10.3 RATIO (10-20); Calcium,Total 8.5 mg/dL (8.5-10.1); Chloride 110 mmol/L (98-107); Creatinine, Serum 4.65 mg/dL (0.70-1.30); EST Glomerular Filtration Rate 13 mL/min (>60); Est Glom Filt Rate - Afr Amer 16 mL/min (>60); Estimated Creatinine Clearance 15.76 ml/min; Globulin 3.7 g/dL (2.2-4.2); Glucose 99 mg/dL (74-106); Potassium 4.3 mmol/L (3.5-5.1); Protein, Total 6.5 g/dL (6.4-8.2); Sodium Level 136 mmol/L (136-145); Troponin-I HS (w/2H Reflex) 36 pg/mL (3.0-78.0)
[2023-01-30 23:18] VITALS: BP 177/148; PULSE 77
[2023-01-30] MEDS: Nitroglycerin Oint 1 INCH PACKET TRANSDERM. (23:18)
[2023-01-30] MEDS: Furosemide 40 MG/4 ML Vial IV (23:18)
[2023-01-31] VITALS (14 sets, daily range): BP systolic 134–198; BP diastolic 65–95; PULSE 64–86; RESP 10–18; TEMP 36.7–37; O2SAT 91–95; BMI 33.3
[2023-01-31 00:14] LABS: Reflex Troponin-HS? (from REC) Y
[2023-01-31 00:50] LABS: Troponin-I HS 37 pg/mL (3.0-78.0)
[2023-01-31 00:57] LABS: Magnesium 2.2 mg/dL (1.6-2.6)
--- NOTE | 2023-01-31 01:00 | PCM.HP.STD ---
HPI - General General Date of Admission: 01/31/23 Date of Service: 01/31/23 Chief Complaint: Dyspnea. HPI Narrative The patient is a 72 y/o M w/ PMHx: BPH, Obesity, Asthma with allergic rhinitis, Anxiety and Depression, GERD, Hx Sqaumous cell cancer hypopharynx, CKD stage III unclear subtype, HTN, HLD, Hx CVA, Hypothyroidism, Diabetes mellitus type II with chronic neuropathy, Chronic anemia/AOCD who presents to the [facility] ED on 01/31/23 with history of dyspnea over the last 24 hours worse with exertion improved with rest however its progressively become more severe causing him to even pause when he tends to go up steps with recent mild postnasal drainage and a nonproductive cough nor any fevers or chills nor any recent chest discomfort but given ongoing prompted ED evaluation. Patient does report notable BL LE edema. He does report that his kidney function has been worsening and he is supposed to have a Bx but has been unable to secondary to issues with his BP. Work-up in the ED included T98.6, heart rate 77, BP 166/77, respiratory rate 20, initially 94% on room air with improvement to 98% on 2 L nasal cannula, CBC with WC 8.4, hemoglobin 10.1, MCV 92.9, platelet 160 with lymphopenia, CMP with chloride 110, carbon oxide 20, BUN/creatinine 48/4.65, hepatic profile with AST/ALT 33/66, alk phos 125, troponin 36, BNP 748.7, chest x-ray with evidence of moderate congestive heart failure, EKG with SR with PVC with no acute evidence of ischemia. In the ED patient administered nitroglycerin 1 inch transdermal as well as Lasix 40 mg IV x1. [facility] Medical History (Updated 01/31/23 @ 00:[address] Danna Johnson MD) Benign hypertension Chronic peripheral neuropathic pain CKD (chronic kidney disease), stage III Congestive heart failure Diabetes mellitus, type 2 Fatty liver History of CVA (cerebrovascular accident) Hypothyroidism (acquired) Mixed hyperlipidemia Squamous cell cancer of hypopharynx Home Medications fluticasone propionate 50 mcg/actuation nasal spray,suspension 1 spray BID 07/10/13 [History Last Taken Unknown] hydrochlorothiazide 25 mg tablet 25 mg PO DAILY 07/10/13 [History Last Taken Unknown] lansoprazole 30 mg capsule,delayed release (Prevacid) 30 mg PO BID 07/10/13 [History Last Taken Unknown] tamsulosin 0.4 mg capsule 0.8 mg PO DAILY 07/10/13 [History Last Taken Unknown] aspirin 81 mg tablet,delayed release (Adult Aspirin Regimen) 81 mg PO DAILY 09/30/20 [History Last Taken Unknown] atorvastatin 80 mg tablet 80 mg PO QPM 09/30/20 [History Last Taken Unknown] citalopram 40 mg tablet 40 mg PO DAILY 09/30/20 [History Last Taken Unknown] fenofibrate nanocrystallized 145 mg tablet 145 mg PO DAILY #1 TAB 09/30/20 [Rx Last Taken Unknown] metformin 1,000 mg tablet 1,000 mg PO BID 09/30/20 [History Last Taken Unknown] amlodipine 10 mg tablet 10 mg PO DAILY 04/02/21 [History Last Taken Unknown] ascorbic acid (vitamin C) 1,000 mg tablet 1 g PO DAILY 04/02/21 [History Last Taken Unknown] cholecalciferol (vitamin D3) 125 mcg (5,000 unit) capsule 125 mcg PO DAILY 04/02/21 [History Last Taken Unknown] donepezil 10 mg tablet 10 mg PO QHS 04/02/21 [History Last Taken Unknown] folic acid 800 mcg tablet 0.8 mg PO DAILY 04/02/21 [History Last Taken Unknown] metoprolol succinate 25 mg tablet,extended release 24 hr 25 tablet PO DAILY 04/02/21 [History Last Taken Unknown] zinc 50 mg tablet 50 mg PO DAILY 04/02/21 [History Last Taken Unknown] levothyroxine 150 mcg tablet 150 mcg PO .daily, 2 on Tuesday10/01/21 [History Last Taken Unknown] loratadine 10 mg tablet (Claritin) 10 mg PO DAILY 12/20/21 [History Last Taken Unknown] methylphenidate HCl 36 mg tablet,extended release 24 hr 36 mg PO DAILY 12/20/21 [History Last Taken Unknown] montelukast 10 mg tablet (Singulair) 10 mg PO DAILY 12/20/21 [History Last Taken Unknown] losartan 100 mg tablet 100 mg PO DAILY #90 tabs 05/27/22 [Rx Last Taken Unknown] glipizide 5 mg tablet, extended release 24 hr 5 mg PO DAILY #90 tabs 09/28/22 [Rx Last Taken Unknown] dulaglutide 3 mg/0.5 mL subcutaneous pen injector (Wyst) 3 mg (0.5 mL) subcut QWEEK #2 mL 10/20/22 [Rx Last Taken Unknown] blood sugar diagnostic (OneTouch Ultra Test strips) #100 ea 01/19/23 [Rx Last Taken Unknown] blood-glucose meter (GeosignTouch Ultra2 Meter) #1 ea 01/19/23 [Rx Last Taken Unknown] dapagliflozin propanediol 10 mg tablet 5 mg PO DAILY 01/30/23 [History Last Taken Unknown] hydralazine 50 mg tablet 100 mg PO TID 01/30/23 [History Last Taken Unknown] lisdexamfetamine 70 mg capsule (Vyvanse) 70 mg PO DAILY 01/30/23 [History Last Taken Unknown] losartan 50 mg tablet 50 mg PO DAILY 01/30/23 [History Last Taken Unknown] metoprolol succinate 50 mg tablet,extended release 24 hr 50 mg PO DAILY 01/30/23 [History Last Taken Unknown] Allergy/AdvReac Type Severity Reaction Status Date / Time No Known Allergies Allergy Verified 05/09/22 20:05 Family History (Updated 01/31/23 @ 00:[address] Danna Johnson MD) Mother Breast cancer Diabetes Father Heart disease Hypertension CAD (coronary artery disease) Myocardial infarction Surgical History (Updated 01/31/23 @ 00:[address] Danna Johnson MD) History of tonsillectomy and adenoidectomy History of total hip replacement S/P nasal surgery Social History (Updated 01/31/23 @ 00:[address] Danna Johnson MD) household members: spouse Smoking Status: Never smoker alcohol intake: current alcohol intake frequency: holidays/special occasions only substance use type: does not use ROS ROS Narrative Admission Review of Systems: CONSTITUTIONAL: No weight loss, fever, chills, + weakness or fatigue. HEENT: + Rhinitis. Eyes: No visual loss, blurred vision, double vision or yellow sclerae. Ears, Nose, Throat: No hearing loss, sneezing, congestion, sore throat. SKIN: No rash or itching, lesions, wounds. CARDIOVASCULAR:+ BL LE edema, orthopnea. No chest pain, chest pressure or chest discomfort, palpitations, syncopal events. RESPIRATORY: + shortness of breath, occasional cough without marked sputum, No wheezing, hemoptysis. GASTROINTESTINAL: No anorexia, nausea, vomiting or diarrhea, abdominal pain, melena, BRBPR. GENITOURINARY: No dysuria, frequency, urgency or retention. NEUROLOGICAL: No headache, dizziness, syncope, paralysis, ataxia, numbness or tingling in the extremities, focal weakness, change in bowel or bladder control, seizure. MUSCULOSKELETAL: + muscle, back pain, joint pain or stiffness. HEMATOLOGIC: + anemia, bleeding or bruising. LYMPHATICS: No enlarged nodes. No history of splenectomy. PSYCHIATRIC: + history of depression or anxiety. ENDOCRINOLOGIC: No reports of sweating, cold or heat intolerance. No polyuria or polydipsia. ALLERGIES: + history of asthma, rhinitis. Vital Signs Vital Signs Vital Signs: 01/30/23 21:48 01/30/23 21:50 01/30/23 22:05 Temperature 98.6 F 97.8 F Temperature Source Temporal Temporal Pulse Rate 77 71 Respiratory Rate 20 H 15 Respiratory Effort Short of Breath Respiratory Depth Deep Respiratory Pattern Normal Blood Pressure 166/77 H 203/87 H Blood Pressure Mean 106 125 Pulse Ox 94 98 Oxygen Delivery Method Room Air Nasal Cannula Nasal Cannula Oxygen Flow Rate (L/min) 2 2 01/30/23 23:18 Temperature Temperature Source Pulse Rate 77 Respiratory Rate Respiratory Effort Respiratory Depth Respiratory Pattern Blood Pressure 177/148 H Blood Pressure Mean Pulse Ox Oxygen Delivery Method Oxygen Flow Rate (L/min) Weight Weight: 235 lb Body Mass Index (BMI) 31.8 Physical Exam Narrative Physical Examination: General: Awake, alert, oriented x 3 and cooperative, seated upright in the ED bed in no apparent distress, notes feeling significantly improved since initial ED arrival. Skin: Normal color, normal turgor, no icterus, no cyanosis. HEENT: AT/NC, EOMI, PERRLA, MMM, no carotid bruits, + JVD noted. Lungs: Diminished, greater bases, mildly increased respiratory rate but no distress, appropriate effort, mild rales at bases, no current rhonchi or wheezing. Heart: Regular rate and rhythm; no gallop, rub audible. Abdomen: Soft, obese, NTTP, ND, normal BS, no obvious HSM however habitus makes evaluation difficult. Extremities: No cyanosis, no clubbing, mild bilateral cox distally mildly pitting edema. Neurological: Patient awake, alert, oriented as noted, cognitive function intact; pupils equally reactive to light and accommodation, cranial nerves II-XII grossly normal, moving all 4 extremities, no focal deficits, strength moderately globally decreased secondary to acute presentation. Psychiatric: Affect appears fatigued otherwise normal, no acute evidence of depressive or anxiety feelings. Results Lab / Micro Data 01/30/23 22:05 01/30/23 22:05 Labs: Laboratory Results - last 24 hr 01/30/23 22:05: WBC 8.4, RBC 3.08 L, Hgb 10.0 L, Hct 28.6 L, MCV 92.9, MCH 32.5 H, MCHC 35.0, RDW Std Deviation 43.9, RDW Coeff of Misael 13.0, Plt Count 160, MPV 10.9, Immature Gran % (Auto) 0.700, Neut % (Auto) 78.8 H, Lymph % (Auto) 8.5 L, Ell[place] % (Auto) 7.5, Eos % (Auto) 4.0, Baso % (Auto) 0.5, Absolute Neuts (auto) 6.6, Absolute Lymphs (auto) 0.72 L, Nucleated RBC % 0, Sodium 136, Potassium 4.3, Chloride 110 H, Carbon Dioxide 20.0 L, Anion Gap 6, BUN 48 H, Creatinine 4.65 H, Estim Creat Clear Calc 15.76, Est GFR (MDRD) Af Amer 16 L, Est GFR (MDRD) Non-Af 13 L, BUN/Creatinine Ratio 10.3, Glucose 99, Calcium 8.5, Total Bilirubin 0.30, AST 33, ALT 66 H, Alkaline Phosphatase 125 H, Troponin I High Sens 36, B-Natriuretic Peptide 748.7 H, Total Protein 6.5, Albumin 2.8 L, Globulin 3.7, Albumin/Globulin Ratio 0.8 L Radiology Impression Chest X-Ray 01/30/23 22:34 IMPRESSION: Moderate congestive heart failure. Electronically Signed: Oskar Adams MD at 22:55 EDT , Assessment & Plan Assessment/Plan (1) CHF exacerbation: PLAN: Plan The patient is a 72 y/o M w/ PMHx: MADY on BIPAP, BPH, Obesity, Asthma with allergic rhinitis, Anxiety and Depression, GERD, Hx Sqaumous cell cancer hypopharynx, CKD stage III unclear subtype, HTN, HLD, Hx CVA, Hypothyroidism, Diabetes mellitus type II with chronic neuropathy, Chronic anemia/AOCD who presents to the [facility] ED on 01/31/23 with history of dyspnea over the last 24 hours worse with exertion improved with rest however its progressively become more severe causing him to even pause when he tends to go up steps with recent mild postnasal drainage and a nonproductive cough nor any fevers or chills nor any recent chest discomfort but given ongoing prompted ED evaluation. #1. Acute Decompensated CHF, unclear type, possibly Cardiorenal syndrome given recently worsening kidney function: CXR obtained in the ED w/ evidence of moderate congestive heart failure. Patient administered IV lasix in the ED, will admit to PCU, maintain on cardiac telemetry, obtain cardiac enzyme series, obtain serial EKGs, continue IV lasix diuresis BID regimen but if not effective low threshold to transition to an IV Lasix drip, monitor I/Os, maintain on intake restriction, continue medical therapy, obtain TSH and magnesium level, echocardiogram will be requested as last noted from 2013 with normal LV size, normal LV systolic function, EF 65% with structurally normal valves. #2. Acute kidney injury on reported prior CKD stage III unclear subtype: Admission BUN/creatinine 48/4.65, prior remote [id number] baseline creatinine noted to be previously 1.7-1.8 but most recently noted prior to this creatinine 3.24 on 12/29/2022 and per recent online records reported per patient's spouse's most recent function creatinine now elevated up to 4.49. As noted above we will continue on IV Lasix diuresis but will hold other nephrotoxic regimen as able, will obtain UA, will obtain FeNa assessment and renal US. Nephrology consulted, pending. #3. Chronic normocytic anemia/AOCD: Admission hemoglobin 10, baseline previously noted remotely 12/20/21 hemoglobin 15, certainly has been remote since last hemoglobin assessment available in [employer] system, per discussion with patient and himself his current new baseline is primarily 9-10, stable, continue to trend. #4. Chronic Asthma with allergic rhinitis: Will maintain on oxygen with wean as tolerated to room air, continue ATC budesonide, PRN albuterol, HOB, IS parameters, continue patient home Singulair, fluticasone and loratadine regimen. #5. Diabetes mellitus type II with chronic neuropathy: Hold oral home regimen, ADA diet, accu checks w/ ISS. #6. Hypertension: Continue home regimen including metoprolol, hydralazine, amlodipine, IV Lasix as noted given acute presentation however will hold all other nephrotoxic medication given THEE, PRN hydralazine. #7. Hyperlipidemia: Continue home statin regimen. AM FLP. #8. Hypothyroidism: We will continue patient on levothyroxine regimen, TSH pending. #9. Anxiety and depression/ADHD: We will continue patient home citalopram home regimen but closely monitor given creatinine clearance level and hold if necessary, will hold patient home lisdexamfetamine regimen. #10. Hx CVA: We will continue patient home aspirin, statin, hypertensive regimen with adjustments given HTEE as noted as well as diabetic regimen with alterations. #11. 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 #12. GERD: We will continue patient home PPI. #13. BPH: We will continue patient on Flomax regimen. #14. Obesity: Weight loss and lifestyle changes encouraged. #15. Dementia unclear type with unclear behavioral disturbance history: We will continue patient home donepezil regimen, maintain on fall and aspiration Precautions, therapies as well as case management consulted for discharge planning. #16. MADY: Continue BIPAP q HS. #17. DVT prophylaxis: Heparin. #18. CODE status: Patient HCPOA is his who is present and living will is not currently in place. Discussed CODE status at length including difference between FULL code, DNR-CCA and DNR-CC status. Following discussions about the differences in these status, requested Full Code status. Advanced Care Planning Face to Face Time: 16 minutes. Admission Evaluation Time spent evaluating chart, patient history, patient evaluation, care planning and discussion with specialists: 75 minutes. Charges/Coding Visit Charges Inpatient E&M: 36185 Init Hosp L3 Procedures Hospitalists Procedures: 24772 Advncd Care Plan 30 Min
--- NOTE | 2023-01-31 01:29 | ECHOD_ITS ---
Reason For Study: CHF Procedure This was a 2D Doppler, Color Flow transthoracic echocardiogram. Exam performed portable in patient room. Left Ventricle Normal LV size. The estimated ejection fraction is 70 %. No evidence for diastolic dysfunction. No regional wall motion abnormalities noted. Right Ventricle Normal RV size. Normal systolic function. Atria The left atrium is mildly enlarged. Normal right atrium. No doppler evidence for ASD. Mitral Valve There is no mitral valve stenosis. Mild (1+) mitral valve insufficiency. Tricuspid Valve There is no tricuspid stenosis. Trivial tricuspid valve insufficiency. Unable to estimate RV systolic pressure due to insufficient tricuspid regurgitant envelope. Aortic Valve Trisinus/trileaflet aortic valve. Aortic sclerosis, no stenosis. There is no aortic stenosis. Trivial aortic valve insufficiency. Pulmonic Valve There is no pulmonic valvular stenosis. Trivial pulmonic valve insufficiency. Great Vessels Normal aortic root. Pericardium/Pleural No pericardial effusion. MMode/2D Measurements & Calculations LVIDd: 5.6 cm IVSd: 1.4 cm Ao root diam: 3.6 cm LVIDs: 3.5 cm LVPWd: 1.1 cm RVDd: 4.2 cm FS: 37.1 % LAV(MOD-bp): 96.0 ml LVAd ap4: 37.9 cm2 SV(MOD-sp4): 83.6 ml LAV(MOD-bp) Indexed: 42.1 ml/m2 LVLd ap4: 9.5 cm LAV(MOD-sp2): 86.1 ml EDV(MOD-sp4): 126.8 ml LAV(MOD-sp4): 90.3 ml EDV(sp4-el): 128.6 ml LVAs ap4: 19.2 cm2 LVLs ap4: 7.5 cm ESV(MOD-sp4): 43.2 ml ESV(sp4-el): 41.4 ml EF(MOD-sp4): 65.9 % EF(sp4-el): 67.8 % SV(sp4-el): 87.2 ml LA A4 area: 27.0 cm2 LA dimension(2D): 4.5 cm RA A4 area: 14.2 cm2 TAPSE: 2.6 cm Time Measurements MV dec time: 0.13 sec Doppler Measurements & Calculations MV E max bran: 107.1 cm/sec Lat Peak E' Bran: 11.9 cm/sec Med Peak E' Bran: 9.2 cm/sec MV A max bran: 68.3 cm/sec E/E' lat: 9.0 E/E' med: 11.6 MV E/A: 1.6 Ao V2 max: 183.5 cm/sec AI max bran: 361.4 cm/sec MV dec slope: 795.9 cm/sec2 Ao max P.5 mmHg AI max P.2 mmHg Ao V2 mean: 141.8 cm/sec Ao mean P.5 mmHg AI dec slope: 353.2 cm/sec2 Ao V2 VTI: 41.6 cm AI P1/2t: 299.6 msec AV (velocity ratio): 0.66 LV V1 max: 122.0 cm/sec PA V2 max: 112.8 cm/sec TR max bran: 265.1 cm/sec LV V1 max P.0 mmHg TR max P.1 mmHg LV V1 mean P.8 mmHg LV V1 mean: 94.1 cm/sec LV V1 VTI: 27.2 cm ECHO/Echo Complete Interpretation Summary The estimated ejection fraction is 70 %. No evidence for diastolic dysfunction. The left atrium is mildly enlarged. Trivial tricuspid valve insufficiency. Trivial aortic valve insufficiency. Mild (1+) mitral valve insufficiency. Ordering Physician: Danna Johnson Referring Physician: Jada Arzola Performed By: Radha Finch, PATSY, RVT
[2023-01-31 02:34] LABS: Mucous, Urine 0 SEEN /hpf (<or=2+); Red Blood Cells-Urine 0 SEEN /hpf (0-5); Squamous Epithelial Cells - UA 0 SEEN /hpf (0-5); White Blood Cells 0 SEEN /hpf (0-5)
[2023-01-31 02:37] LABS: Color, Urine Yellow (Yellow); Glucose, Dipstick 100 mg/dl (Normal); Ketone-Dipstick Negative (Negative); Leukocyte Esterase-Dipstick Negative /ul (Negative); Nitrite-Dipstick Negative (Negative); Occult Blood-Urine Negative /ul (Negative); Protein-Dipstick 100 mg/dl (Negative); Urine Bilirubin Dipstick Negative (Negative); Urine Clarity Clear (Clear); Urine Urobilinogen Normal (Normal)
--- NOTE | 2023-01-31 02:42 | CPS ---
Pt wore bipap in ER fpr a total of 15 minutes and took it off and out nasal o2 in his mouth at 5L
[2023-01-31 02:43] LABS: Urine Sodium 116 mmol/L (Not Establ.)
[2023-01-31 02:47] LABS: Bacteria RARE /hpf (None Seen)
[2023-01-31 04:28] LABS: Absolute Lymphocyte Count 0.53 X10^3/uL (0.83-4.51); Absolute Neutrophil Count 8.1 X10^3/uL (2.0-7.7); Basophil# 0.04 X10^3/uL; Basophil% 0.4 % (0-1); Eosinophil# 0.39 X10^3/uL; Eosinophils% 3.9 % (0-5); Hematocrit 28.3 % (40-54); Hemoglobin 9.2 g/dL (13.0-16.5); Lymphocyte # 0.53 X10^3/ul (0.83-4.51); Lymphocyte % 5.3 % (19-41); Mean Corp Hgb Conc 32.5 g/dL (32-36); Mean Corpuscular Volume 95.3 fL (80-94); Mean Platelet Vol. 10.8 fl (6.2-12.0); Monocyte# 0.82 X10^3/uL; Monocyte% 8.2 % (0-10); NRBC Flagged by Analyzer 0 % (0-5); Neutrophil # 8.12 X10^3/uL (2.7-7.7); Neutrophil % 81.6 % (47-70); POSITIVE DIFFERENTIAL YES; Platelet Count 164 K/mm3 (150-450); RBC Distribution Width CV 13.1 % (11.6-14.6); RBC Distribution Width SD 45.7 fl (35.1-43.9); Red Blood Count 2.97 M/mm3 (4.6-6.2)
[2023-01-31 04:50] LABS: Differential Indicated SCAN CRITERIA MET; Troponin-I HS 42 pg/mL (3.0-78.0)
[2023-01-31 04:54] LABS: Differential Comment SCANNED
[2023-01-31 05:16] LABS: ALB/GLOB Ratio 0.8 RATIO (0.9-2.4); AST(SGOT) 32 U/L (15-37); Alanine Aminotransfer ALT/SGPT 57 U/L (16-61); Albumin, Serum 2.6 g/dL (3.2-5.0); Alkaline Phosphatase 115 U/L (45-117); Anion Gap 7 (5-15); BUN 48 mg/dL (7-18); BUN/Creat Ratio 10.6 RATIO (10-20); Calcium,Total 8.1 mg/dL (8.5-10.1); Chloride 111 mmol/L (98-107); Creatinine, Serum 4.52 mg/dL (0.70-1.30); EST Glomerular Filtration Rate 14 mL/min (>60); Est Glom Filt Rate - Afr Amer 17 mL/min (>60); Estimated Creatinine Clearance 16.21 ml/min; Globulin 3.4 g/dL (2.2-4.2); Glucose 137 mg/dL (74-106); Potassium 4.2 mmol/L (3.5-5.1); Sodium Level 138 mmol/L (136-145); Thyroid Stim Hormone (TSH) 2.92 uIU/mL (0.358-3.74)
--- NOTE | 2023-01-31 05:55 | US_ITS ---
STUDY: RENAL ULTRASOUND - COMPLETE REASON FOR EXAM: Male, 72 years old. THEE on CKD TECHNIQUE: Ultrasound evaluation of the kidneys was performed with real-time and static morgan-scale imaging. COMPARISON: Comparison is made with prior study dated October 23, 2022. FINDINGS: RIGHT KIDNEY: Normal location of the right kidney, which is normal in size. The right kidney measures 13 cm x 6.3 cm x 6.2 cm. There is a normal cortex of the right kidney. The renal cortex measures 1.4 cm. There is no right renal mass or cyst. There are no right renal calculi. There is no right hydronephrosis. DISTAL RIGHT URETER: There is non-visualization of the distal right ureter. There is no demonstrated right ureterovesical junction calculus. There is a visualized right ureteral jet. LEFT KIDNEY: Normal location of the left kidney, which is normal in size. The left kidney measures 13.6 cm x 5.5 cm x 5.9 cm. There is a normal cortex of the left kidney. The renal cortex measures 1.7 cm. There is a 5.3 cm x 5.3 cm x 4.5 cm left renal cyst. There are no left renal calculi. There is no left hydronephrosis. DISTAL LEFT URETER: There is non-visualization of the distal left ureter. There is no demonstrated left ureterovesical junction calculus. There is a visualized left ureteral jet. BLADDER: The distended urinary bladder has a volume of 253 ml. There is a normal wall thickness of the distended urinary bladder. There is no demonstrated mass within the urinary bladder. There are no demonstrated bladder calculi. Incidental note is made of an enlarged prostate causing indentation at the bladder base. The prostate measures 5.8 cm x 6.5 cm x 4.4 US/Kidney and Bladder IMPRESSION: Left renal cyst. Stable examination. Prostatic enlargement with indentation at the bladder base. Electronically Signed: Jackson Leroy MD at 12:51 EDT ,
[2023-01-31] MEDS: hydrALAZINE 50 MG Tablet 100 MG PO ×3 (06:11→21:06)
[2023-01-31] MEDS: Levothyroxine 150 MCG Tablet PO (06:11)
[2023-01-31 06:58] LABS: Bedside Glucose 99 mg/dL (74-106)
--- NOTE | 2023-01-31 07:31 | CON.PCM.RE_ITS ---
Assessment & Plan Assessment/Plan (1) THEE (acute kidney injury): (2) Chronic kidney disease, stage 4 (severe): (3) Benign hypertension: (4) CHF exacerbation: PLAN: Plan Impression/Plan: 72-year-old man with past history of chronic kidney disease stage G4/A3, type 2 diabetes mellitus, hypertension, prior stroke, hypothyroidism, neuropathy, asthma, BPH, GERD, and depression. The patient presented to the hospital with acute hypoxic respiratory failure thought to be secondary to decompensated heart failure. Nephrology is following for THEE on CKD. Acute kidney injury on chronic kidney disease stage G4/A3. The patient likely has underlying CKD from diabetic kidney disease. He has significant proteinuria. Urine protein creatinine ratio from 12/29/2022 was 7.98 g/g. I suspect that THEE is secondary to progression of CKD from diabetic kidney disease. However, since the rate of GFR loss is rather quick, we should proceed with a kidney biopsy which is already planned by Dr. De Jesus prior to this admission. Even if we see diabetic nodular sclerosis as expected, we can at least give the patient prognosis and treatment plan. There is no urgent need for kidney replacement therapy tonight. Agree with continuing to treat volume overload with IV furosemide. No need to stop furosemide even if serum creatinine increases at this point. We will try to get him scheduled for kidney biopsy on 02/02/2023. Hypertension. BP has been significantly high lately. Most of the time, hypertension and CKD patients are volume dependent. Therefore, continue diuresis with IV furosemide may help. May need to add thiazide diuretic to help with diuresis and BP. Continue other antihypertensive including hydralazine, ,metoprolol, and amlodipine. Acute hypoxic respiratory failure secondary to volume overload. I suspect that acute hypoxic respiratory failure is secondary to both decompensated heart failure as well as progressing CKD leading to sodium retention. Agree with current treatment with IV furosemide. If there is no significant weight loss in the next 24 hours, we can add thiazide diuretic and adjust IV loop diuretic dose further. Nephrology plan discussed with Dr. Sevilla HPI Consult Data Date of Consult: 01/31/23 HPI Narrative Reason for Consultation: THEE on CKD HPI Narrative: The patient is a 72-year-old man with past history of chronic kidney disease stage G4/A3, type 2 diabetes mellitus, hypertension, prior stroke, hypothyroidism, neuropathy, asthma, BPH, GERD, and depression. The patient presented to the hospital on 01/31/2023 because of worsening dyspnea 1 day prior to presentation. The patient is admitted to the hospital with acute hypoxic respiratory failure due to pulmonary edema/decompensated heart failure. Nephrology is asked to see the patient because of THEE on CKD. The patient last saw Dr. De Jesus in the office in December 2022. Dr. De Jesus noticed a big drop in GFR faster than what is expected for diabetic kidney disease. Therefore, kidney biopsy was ordered to determine the cause of THEE on CKD. However, the patient was unable to complete kidney biopsy because of severe hypertension at prior attempt. Unfortunately, renal function has continued to decline. Serum creatinine has been around 1.87 mg/dL on 12/20/2021. Serum creatinine increased in the past year to 3.24 mg/dL on 12/29/2022. The patient had lost 18 mL/min of GFR in 1 year which is faster than what we would expect for CKD. Serum creatinine has increased further on presentation on 01/30/2023 to 4.65 mg/dL. The patient feels better since admission. He is less short of breath although he was treated with IV diuretic. The patient does have lower extremity edema, and he reports weight gain of 10 pounds in the past month. He denies current na usea, vomiting, or anorexia. He denies LUTS. The patient also denies chronic use of NSAIDs. [facility] Medical History (Updated 01/31/23 @ 18:[address] Omaira Garza MD) Benign hypertension Chronic peripheral neuropathic pain CKD (chronic kidney disease), stage III Congestive heart failure Diabetes mellitus, type 2 Fatty liver History of CVA (cerebrovascular accident) Hypothyroidism (acquired) Mixed hyperlipidemia Squamous cell cancer of hypopharynx Home Medications fluticasone propionate 50 mcg/actuation nasal spray,suspension 1 spray BID 07/10/13 [History Last Taken Unknown] hydrochlorothiazide 25 mg tablet 25 mg PO DAILY 07/10/13 [History Last Taken Unknown] lansoprazole 30 mg capsule,delayed release (Prevacid) 30 mg PO BID 07/10/13 [History Last Taken Unknown] tamsulosin 0.4 mg capsule 0.8 mg PO DAILY 07/10/13 [History Last Taken Unknown] aspirin 81 mg tablet,delayed release (Adult Aspirin Regimen) 81 mg PO DAILY 09/30/20 [History Last Taken Unknown] atorvastatin 80 mg tablet 80 mg PO QPM 09/30/20 [History Last Taken Unknown] citalopram 40 mg tablet 40 mg PO DAILY 09/30/20 [History Last Taken Unknown] fenofibrate nanocrystallized 145 mg tablet 145 mg PO DAILY #1 TAB 09/30/20 [Rx Last Taken Unknown] metformin 1,000 mg tablet 1,000 mg PO BID 09/30/20 [History Last Taken Unknown] amlodipine 10 mg tablet 10 mg PO DAILY 04/02/21 [History Last Taken Unknown] ascorbic acid (vitamin C) 1,000 mg tablet 1 g PO DAILY 04/02/21 [History Last Taken Unknown] cholecalciferol (vitamin D3) 125 mcg (5,000 unit) capsule 125 mcg PO DAILY 04/02/21 [History Last Taken Unknown] donepezil 10 mg tablet 10 mg PO .every other day . 04/02/21 [History Last Taken 01/30/23] folic acid 800 mcg tablet 0.8 mg PO DAILY 04/02/21 [History Last Taken Unknown] metoprolol succinate 25 mg tablet,extended release 24 hr 25 tablet PO DAILY blood pressure 04/02/21 [History Last Taken Unknown] zinc 50 mg tablet 50 mg PO DAILY 04/02/21 [History Last Taken Unknown] levothyroxine 150 mcg tablet 150 mcg PO .daily, 2 on Tuesday10/01/21 [History Last Taken Unknown] loratadine 10 mg tablet (Claritin) 10 mg PO DAILY 12/20/21 [History Last Taken Unknown] methylphenidate HCl 36 mg tablet,extended release 24 hr 36 mg PO DAILY 12/20/21 [History Last Taken Unknown] montelukast 10 mg tablet (Singulair) 10 mg PO DAILY 12/20/21 [History Last Taken Unknown] losartan 100 mg tablet 100 mg PO DAILY #90 tabs 05/27/22 [Rx Last Taken Unknown] glipizide 5 mg tablet, extended release 24 hr 5 mg PO DAILY #90 tabs 09/28/22 [Rx Last Taken Unknown] dulaglutide 3 mg/0.5 mL subcutaneous pen injector (Trulicity) 3 mg (0.5 mL) subcut QWEEK #2 mL 10/20/22 [Rx Last Taken Unknown] blood sugar diagnostic ([employer] Ultra Test strips) #100 ea 01/19/23 [Rx Last Taken Unknown] blood-glucose meter (OneTouch Ultra2 Meter) #1 ea 01/19/23 [Rx Last Taken Unknown] dapagliflozin propanediol 10 mg tablet 5 mg PO DAILY 01/30/23 [History Last Taken Unknown] hydralazine 50 mg tablet 100 mg PO TID 01/30/23 [History Last Taken Unknown] lisdexamfetamine 70 mg capsule (Vyvanse) 70 mg PO DAILY 01/30/23 [History Last Taken Unknown] losartan 50 mg tablet 50 mg PO DAILY 01/30/23 [History Last Taken Unknown] metoprolol succinate 50 mg tablet,extended release 24 hr 50 mg PO DAILY 01/30/23 [History Last Taken Unknown] Allergy/AdvReac Type Severity Reaction Status Date / Time No Known Allergies Allergy Verified 05/09/22 20:05 Family History (Updated 01/31/23 @ 00:[address] Danna Johnson MD) Mother Breast cancer Diabetes Father Heart disease Hypertension CAD (coronary artery disease) Myocardial infarction Surgical History (Updated 01/31/23 @ 00:[address] Danna Johnson MD) History of tonsillectomy and adenoidectomy History of total hip replacement S/P nasal surgery Social History (Updated 01/31/23 @ 00:[address] Danna Johnson MD) household members: spouse Smoking Status: Never smoker alcohol intake: current alcohol intake frequency: holidays/special occasions only substance use type: does not use ROS ROS Narrative 10 out of 10 ROS was done and is otherwise noncontributory to what is already documented in HPI. Physical Exam Narrative General: Alert and oriented x3, NAD. HEENT: Normocephalic, atraumatic. Mucous membrane moist without erythema. PERRLA, EOMI. Hearing is intact. Neck: Supple, no JVD. Trachea is midline. No thyromegaly or lymphadenopathy. Cardiovascular: Normal S1, S2. No rubs, murmurs, or gallops. Respiratory: Decreased breath sound at bases bilaterally. No wheezing. Abdomen: Normal bowel sounds, soft, nontender, no guarding or rebound, no organomegaly. Extremities: No clubbing or cyanosis. There is 2+ edema of the lower extremity bilaterally. Musculoskeletal: Full passive range of motion, no joint swelling. Psychiatric: Normal mood and affect. Skin: Warm and dry, no rash. Neurologic: Cranial nerve II to XII are grossly intact. No focal neurologic deficits. Lab / Micro Data 01/31/23 04:00 01/31/23 04:15 Labs: Laboratory Results - last 24 hr 01/30/23 22:05: WBC 8.4, RBC 3.08 L, Hgb 10.0 L, Hct 28.6 L, MCV 92.9, MCH 32.5 H, MCHC 35.0, RDW Std Deviation 43.9, RDW Coeff of Misael 13.0, Plt Count 160, MPV 10.9, Immature Gran % (Auto) 0.700, Neut % (Auto) 78.8 H, Lymph % (Auto) 8.5 L, [place] % (Auto) 7.5, Eos % (Auto) 4.0, Baso % (Auto) 0.5, Absolute Neuts (auto) 6.6, Absolute Lymphs (auto) 0.72 L, Nucleated RBC % 0, Sodium 136, Potassium 4.3, Chloride 110 H, Carbon Dioxide 20.0 L, Anion Gap 6, BUN 48 H, Creatinine 4.65 H, Estim Creat Clear Calc 15.76, Est GFR (MDRD) Af Amer 16 L, Est GFR (MDRD) Non-Af 13 L, BUN/Creatinine Ratio 10.3, Glucose 99, Calcium 8.5, Total Bilirubin 0.30, AST 33, ALT 66 H, Alkaline Phosphatase 125 H, Troponin I High Sens 36, B-Natriuretic Peptide 748.7 H, Total Protein 6.5, Albumin 2.8 L, Globulin 3.7, Albumin/Globulin Ratio 0.8 L 01/31/23 00:30: Magnesium 2.2, Troponin I High Sens 37 01/31/23 02:22: Urine Color Yellow, Urine Clarity Clear, Urine pH 6.0, Ur Specific [place] 1.010, Urine Protein 100 H, Urine Glucose (UA) 100 H, Urine Ketones Negative, Urine Occult Blood Negative, Urine Nitrite Negative, Urine Bilirubin Negative, Urine Urobilinogen Normal, Ur Leukocyte Esterase Negative, Urine RBC 0 SEEN, Urine WBC 0 SEEN, Ur Squamous Epith Cells 0 SEEN, Urine Bacteria RARE, Urine Mucus 0 SEEN, Ur Random Sodium 116, Urine Creatinine 19.00 01/31/23 04:00: WBC 10.0, RBC 2.97 L, Hgb 9.2 L, Hct 28.3 L, MCV 95.3 H, MCH 31.0, MCHC 32.5 D, RDW Std Deviation 45.7 H, RDW Coeff of Misael 13.1, Plt Count 164, MPV 10.8, Immature Gran % (Auto) 0.600, Neut % (Auto) 81.6 H, Lymph % (Auto) 5.3 L, [place] % (Auto) 8.2, Eos % (Auto) 3.9, Baso % (Auto) 0.4, Absolute Neuts (auto) 8.1 H, Absolute Lymphs (auto) 0.53 L, Nucleated RBC % 0, Differential Comment SCANNED, Troponin I High Sens 42 01/31/23 04:15: Sodium 138, Potassium 4.2, Chloride 111 H, Carbon Dioxide 20.0 L , Anion Gap 7, BUN 48 H, Creatinine 4.52 H, Estim Creat Clear Calc 16.21, Est GFR (MDRD) Af Amer 17 L, Est GFR (MDRD) Non-Af 14 L, BUN/Creatinine Ratio 10.6, Glucose 137 H, Calcium 8.1 L, Total Bilirubin 0.30, AST 32, ALT 57, Alkaline Phosphatase 115, Total Protein 6.0 L, Albumin 2.6 L, Globulin 3.4, Albumin/Globulin Ratio 0.8 L, TSH 2.92 01/31/23 06:09: POC Glucose 99 Radiology Impression Chest X-Ray 01/30/23 22:34 IMPRESSION: Moderate congestive heart failure. Electronically Signed: Oskar Adams MD at 22:55 EDT ,
[2023-01-31] MEDS: Budesonide Respules 0.5 MG/2 ML AMPUL.NEB. INHALATION ×2 (07:36→19:40)
[2023-01-31] MEDS: Montelukast 10 MG Tablet PO (08:58)
[2023-01-31] MEDS: Aspirin E.C. 81 MG Tablet PO (08:58)
[2023-01-31] MEDS: Citalopram 40 MG TABLET PO (08:58)
[2023-01-31] MEDS: Tamsulosin HCl 0.4 MG Capsule 0.8 MG PO (08:58)
[2023-01-31] MEDS: Folic Acid 1 MG Tablet PO (08:58)
[2023-01-31] MEDS: Metoprolol(XL)Succ 50 MG Tablet PO (08:58)
[2023-01-31] MEDS: Loratadine 10 MG Tablet PO (08:59)
[2023-01-31] MEDS: amLODIPine 10 MG Tablet PO (08:59)
[2023-01-31] MEDS: Pantoprazole Sodium 40 MG Tablet PO ×2 (08:59→21:06)
[2023-01-31] MEDS: Heparin Injection (Vial) 5,000 UNIT/ML VIAL 5000 UNIT SC ×2 (08:59→21:07)
[2023-01-31] MEDS: 0.9% Saline Lock 10 ML Syringe IV (08:59)
[2023-01-31] MEDS: Furosemide 40 MG/4 ML Vial IV ×2 (08:59→18:14)
[2023-01-31] MEDS: Fluticasone 0.05% 1 SPRAY NASAL.SRY NASAL ×2 (09:13→21:05)
--- NOTE | 2023-01-31 11:55 | CASEMGMT ---
TOMMY MELENDEZ Discharge Planning Assessment: Face to Face with patient for initial transition planning/care coordination assessment. Pt resting with eyes closed. Noted pt had eyes open and then closed them again. TOMMY MELENDEZ introduced self and role at [facility] to pt's at [facility] who voiced understanding and was agreeable to participating in assessment.? Care providers, pharmacy,?and demographics verified. Admitting Dx: CHF? PCP: CAROL Arzola Specialists: Liza (car greaser), (customer insight analyst) Preferred Pharmacy: [facility] Insurance: [employer] Prescription Benefit:?yes Living Will/HPOA: no living will but has an HPOA who is pt's Jessi LNOK: Jessi Living Arrangements: Pt and spouse live with their daughter, ANDER, and grandson in a two story home with a first floor set-up. They have a half bath on the first floor and need to go to the second floor for shower. There are approximately 12 steps to enter the home and they are described as steep and challenging. Pt is independent at baseline with ADLs. Transportation: provides transportation, pt does not drive d/t dx of dementia DME: has a shower chair, BSC, and walker but does not use. BiPap from [facility] supply. Glucometer and needed supplies. Checks his sugar qAM. SNF/HHC: denies Plan: Per pt's , she is unclear of discharge plan at this time. States a week ago they were told his kidney's were failing and that he might . She feels they need to get a clearer understanding of the status of pt's medical condition before deciding further discharge plans. Will continue to monitor pt's clinical progression and determine discharge needs as they become more clear. If home O2 is needed at OR, they do not have a preference of provider but is currently a patient with [facility] for bipap. Hill Padron RN CM
--- NOTE | 2023-01-31 14:51 | CHAPLAIN ---
Type of Pastoral Visit _x__ Initial Visit ___ Follow-up Visit ___ On-call Visit ___ General Patient Visit ___ Spiritual Assessment ___ Family Conference ___ Bereavement ___ Rapid Response ___ Code Blue ___ Other (describe below) Pastoral Care Referral From _x__ Patient _x__ Family ___ Nurse ___ Physician ___ Product Owner ___ Business Editor ___ Other (describe below) Sacrament/Intervention _x__ Active listening ___ Anointing ___ Shinto ___ Bereavement ___ Communion _x__ Jacki exploration ___ ___ Life review _x__ Prayer ___ Reconciliation ___ Sacrament of Sick _x__ Supportive presence ___ Wedding ___ Other (describe below) Pastoral Comments patient and spouse are in the room; spouse immediately identifies herself as a former patient and gives report of her progress; pt states several times that he is fine but interjects about his diagnosis and terminal condition; spouse is more tearful and relates that she is having a harder time dealing with this illness; talked about coping, feelings, level of pain, support; both are welcoming of prayer; pt states what it is will just be and its okay; spouse agrees but admit to more emotions and concerns than the patient; prayer given; offer of ongoing support mentioned
[2023-01-31 16:39] LABS: Bedside Glucose 125 mg/dL (74-106)
[2023-01-31 17:01] LABS: Bedside Glucose 109 mg/dL (74-106)
[2023-01-31] MEDS: Atorvastatin Calcium 80 MG Tablet PO (21:06)
[2023-01-31] MEDS: Donepezil HCl 10 MG Tablet PO (21:06)
[2023-02-01] VITALS (11 sets, daily range): BP systolic 147–188; BP diastolic 70–90; PULSE 70–86; RESP 12–18; TEMP 36.4–37.1; O2SAT 92–97; BMI 32.5
--- NOTE | 2023-02-01 02:10 | NURSING ---
This rn assuming care of pt at this time.
[2023-02-01] MEDS: Levothyroxine 150 MCG Tablet PO (04:56)
[2023-02-01] MEDS: hydrALAZINE 50 MG Tablet 100 MG PO ×3 (04:56→21:07)
[2023-02-01 06:01] LABS: Absolute Lymphocyte Count 0.69 X10^3/uL (0.83-4.51); Absolute Neutrophil Count 6.4 X10^3/uL (2.0-7.7); Basophil# 0.04 X10^3/uL; Basophil% 0.5 % (0-1); Eosinophil# 0.31 X10^3/uL; Eosinophils% 3.7 % (0-5); Hematocrit 27.4 % (40-54); Hemoglobin 8.9 g/dL (13.0-16.5); Lymphocyte # 0.69 X10^3/ul (0.83-4.51); Lymphocyte % 8.3 % (19-41); Mean Corp Hgb Conc 32.5 g/dL (32-36); Mean Corpuscular Hgb 31.2 pg (27.0-32.0); Mean Corpuscular Volume 96.1 fL (80-94); Mean Platelet Vol. 11.1 fl (6.2-12.0); Monocyte# 0.83 X10^3/uL; NRBC Flagged by Analyzer 0 % (0-5); Neutrophil % 76.8 % (47-70); Platelet Count 163 K/mm3 (150-450); RBC Distribution Width CV 12.9 % (11.6-14.6); RBC Distribution Width SD 44.8 fl (35.1-43.9); Red Blood Count 2.85 M/mm3 (4.6-6.2); White Blood Count 8.3 K/mm3 (4.4-11.0)
[2023-02-01 06:26] LABS: Anion Gap 5 (5-15); BUN 52 mg/dL (7-18); Calcium,Total 8.2 mg/dL (8.5-10.1); Chloride 109 mmol/L (98-107); Creatinine, Serum 4.34 mg/dL (0.70-1.30); EST Glomerular Filtration Rate 14 mL/min (>60); Est Glom Filt Rate - Afr Amer 17 mL/min (>60); Estimated Creatinine Clearance 16.89 ml/min; Glucose 86 mg/dL (74-106); Potassium 4.3 mmol/L (3.5-5.1); Sodium Level 138 mmol/L (136-145)
[2023-02-01 06:26] LABS: Bedside Glucose 146 mg/dL (74-106)
[2023-02-01 06:36] LABS: Cholesterol 110 mg/dL (200); High Density Lipoprotein 46 mg/dL; Triglycerides 102 mg/dL; Very Low Density Lipoprotein 20 mg/dL (5-40)
[2023-02-01 06:54] LABS: Bedside Glucose 108 mg/dL (74-106)
[2023-02-01] MEDS: Budesonide Respules 0.5 MG/2 ML AMPUL.NEB. INHALATION ×2 (07:13→19:59)
--- NOTE | 2023-02-01 08:00 | CPS ---
Bipap not set up. Pt has own Bipap at bedside
[2023-02-01] MEDS: Tamsulosin HCl 0.4 MG Capsule 0.8 MG PO (08:25)
[2023-02-01] MEDS: Aspirin E.C. 81 MG Tablet PO (08:25)
[2023-02-01] MEDS: Folic Acid 1 MG Tablet PO (08:25)
[2023-02-01] MEDS: Loratadine 10 MG Tablet PO (08:25)
[2023-02-01] MEDS: Citalopram 40 MG TABLET PO (08:25)
[2023-02-01] MEDS: Furosemide 40 MG/4 ML Vial IV ×2 (08:26→17:10)
[2023-02-01] MEDS: Fluticasone 0.05% 1 SPRAY NASAL.SRY NASAL ×2 (08:26→21:07)
[2023-02-01] MEDS: Heparin Injection (Vial) 5,000 UNIT/ML VIAL 5000 UNIT SC ×2 (08:26→21:07)
[2023-02-01] MEDS: Montelukast 10 MG Tablet PO (08:27)
[2023-02-01] MEDS: Pantoprazole Sodium 40 MG Tablet PO ×2 (08:27→21:06)
[2023-02-01] MEDS: amLODIPine 10 MG Tablet PO (08:27)
[2023-02-01] MEDS: Metoprolol(XL)Succ 50 MG Tablet PO (08:28)
--- NOTE | 2023-02-01 09:28 | PCM.PN.HOSP ---
Subjective Subjective Doing a, no issues overnight. Maintaining his sats on 3 L, does not wear oxygen at baseline Objective Data Objective Data Vital Signs: Vital Signs Temp Pulse Resp BP Pulse Ox O2 Del Method O2 Flow Rate 97.8 F 86 16 147/72 H 95 Nasal Cannula 3 02/01/23 04:55 02/01/23 08:28 02/01/23 07:13 02/01/23 04:55 02/01/23 07:13 02/01/23 07:13 02/01/23 07:13 Oxygen Flow Rate (L/min) 3 Oxygen Delivery Method Nasal Cannula Weight: 239 lb 13.807 oz Body Mass Index (BMI) 32.5 Intake & Output: Intake and Output for Last 24 Hours 01/31/23 02/01/23 02/02/23 03:59 03:59 03:59 Intake Total 900 / 900 120 / 120 Output Total 3100 / 3100 Balance -2200 / -2200 120 / 120 Lab / Micro Data 02/01/23 04:51 02/01/23 04:51 Labs: Laboratory Results - last 24 hr 01/31/23 11:40: POC Glucose 125 H 01/31/23 16:22: POC Glucose 109 H 01/31/23 21:12: POC Glucose 146 H 02/01/23 04:51: WBC 8.3, RBC 2.85 L, Hgb 8.9 L, Hct 27.4 L, MCV 96.1 H, MCH 31.2, MCHC 32.5, RDW Std Deviation 44.8 H, RDW Coeff of Misael 12.9, Plt Count 163, MPV 11.1, Immature Gran % (Auto) 0.700, Neut % (Auto) 76.8 H, Lymph % (Auto) 8.3 L, [place] % (Auto) 10.0, Eos % (Auto) 3.7, Baso % (Auto) 0.5, Absolute Neuts (auto) 6.4, Absolute Lymphs (auto) 0.69 L, Nucleated RBC % 0, Sodium 138, Potassium 4.3, Chloride 109 H, Carbon Dioxide 24.0, Anion Gap 5, BUN 52 H, Creatinine 4.34 H, Estim Creat Clear Calc 16.89, Est GFR (MDRD) Af Amer 17 L, Est GFR (MDRD) Non-Af 14 L, BUN/Creatinine Ratio 12.0, Glucose 86, Calcium 8.2 L, Triglycerides 102, Cholesterol 110, LDL Cholesterol 44, VLDL Cholesterol 20, HDL Cholesterol 46 02/01/23 06:36: POC Glucose 108 H Radiography Diagnostic Testing: Radiology Impression Echocardiogram 01/31/23 01:29 Interpretation Summary The estimated ejection fraction is 70 %. No evidence for diastolic dysfunction. The left atrium is mildly enlarged. Trivial tricuspid valve insufficiency. Trivial aortic valve insufficiency. Mild (1+) mitral valve insufficiency. Ordering Physician: Danna Johnson Referring Physician: Jada Arzola Performed By: Radha Finch, RDCS, RVT Renal Ultrasound 01/31/23 05:55 IMPRESSION: Left renal cyst. Stable examination. Prostatic enlargement with indentation at the bladder base. Electronically Signed: Jackson Leroy MD at 12:51 EDT , Physical Exam Narrative General: Alert, Oriented x3, Cooperative, No apparent distress HEENT: Atraumatic, PERRLA, EOMI, Normocephalic Oral: Moist Mucosa Neck: Supple, No JVD Lungs: Diminished, Normal air movement, No rhonchi, No wheeze, No rales Cardiovascular: Regular rate, Regular Rhythm, Normal S1, Normal S2, No murmurs Abdomen: Soft, Non Tender, Non-Distended, No Hepato-splenomegaly Extremities: Edema, Capillary Refill Less than 3 Seconds Skin: No rashes, No breakdown Musculoskeletal: No Tenderness to Palpation of Joints or Extremities Neurological: Motor Exam 5/5 strength throughout, Sensory exam intact to light touch and pain Psych/Mental Status: Normal Affect, Appropriate Assessment & Plan Assessment/Plan (1) CHF exacerbation: PLAN: Plan 1. Acute renal failure of unclear etiology with increased dyspnea and swelling/anemia of chronic disease ? Echo was unremarkable, there is no reduced EF or diastolic dysfunction therefore he does not have heart failure ? Appreciate nephrology's assistance ? We will obtain a renal biopsy tomorrow ? Continue with IV Lasix, his edema and shortness of breath is likely secondary to his renal failure given that he has significant proteinuria 2. HTN/HLD/history of CVA ? Continue with his home blood pressure medications ? Continue with statin 3. DM2 with neuropathy ? We will hold his oral metformin ? Accu-Cheks ACHS ? Sliding scale insulin ? We will make adjustments as necessary 4. Hypothyroidism ? Stable ? Continue with Synthroid 5. Anxiety/depression/dementia ? Stable ? Continue with his home medications 6. GERD ? Stable ? Continue with PPI 7. 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 8. BPH ? Stable ? Continue with Flomax DVT: Heparin Charges/Coding Visit Charges Inpatient E&M: 00838 Subs Hosp L2
--- NOTE | 2023-02-01 10:51 | PN.RENAL_ITS ---
Subjective Subjective No new complaints Objective Data Objective Data Vital Signs: Vital Signs Temp Pulse Resp BP Pulse Ox O2 Del Method O2 Flow Rate 98.2 F 78 14 188/90 H 97 Nasal Cannula 2 02/01/23 09:15 02/01/23 09:15 02/01/23 09:15 02/01/23 09:15 02/01/23 09:15 02/01/23 09:50 02/01/23 09:50 Oxygen Flow Rate (L/min) 2 Oxygen Delivery Method Nasal Cannula Weight: 108.8 kg Body Mass Index (BMI) 32.5 Intake & Output: Intake and Output for Last 24 Hours 01/30/23 01/31/23 02/01/23 23:59 23:59 23:59 Intake Total 900 / 900 120 / 120 Output Total 3100 / 3100 Balance -2200 / -2200 120 / 120 Lab / Micro Data 02/01/23 04:51 02/01/23 04:51 Labs: Laboratory Results - last 24 hr 01/31/23 11:40: POC Glucose 125 H 01/31/23 16:22: POC Glucose 109 H 01/31/23 21:12: POC Glucose 146 H 02/01/23 04:51: WBC 8.3, RBC 2.85 L, Hgb 8.9 L, Hct 27.4 L, MCV 96.1 H, MCH 31.2, MCHC 32.5, RDW Std Deviation 44.8 H, RDW Coeff of Misael 12.9, Plt Count 163, MPV 11.1, Immature Gran % (Auto) 0.700, Neut % (Auto) 76.8 H, Lymph % (Auto) 8.3 L, [place] % (Auto) 10.0, Eos % (Auto) 3.7, Baso % (Auto) 0.5, Absolute Neuts (auto) 6.4, Absolute Lymphs (auto) 0.69 L, Nucleated RBC % 0, Sodium 138, Potassium 4.3, Chloride 109 H, Carbon Dioxide 24.0, Anion Gap 5, BUN 52 H, Creat inine 4.34 H, Estim Creat Clear Calc 16.89, Est GFR (MDRD) Af Amer 17 L, Est GFR (MDRD) Non-Af 14 L, BUN/Creatinine Ratio 12.0, Glucose 86, Calcium 8.2 L, Triglycerides 102, Cholesterol 110, LDL Cholesterol 44, VLDL Cholesterol 20, HDL Cholesterol 46 02/01/23 06:36: POC Glucose 108 H Micro: Microbiology 01/31/23 02:22 Urine, Clean Catch Urine Culture - Preliminary Culture exhibits no growth. Radiography Diagnostic Testing: Radiology Impression Echocardiogram 01/31/23 01:29 Interpretation Summary The estimated ejection fraction is 70 %. No evidence for diastolic dysfunction. The left atrium is mildly enlarged. Trivial tricuspid valve insufficiency. Trivial aortic valve insufficiency. Mild (1+) mitral valve insufficiency. Ordering Physician: Danna Johnson Referring Physician: Jada Arzola Performed By: Radha Finch, RDCS, RVT Renal Ultrasound 01/31/23 05:55 IMPRESSION: Left renal cyst. Stable examination. Prostatic enlargement with indentation at the bladder base. Electronically Signed: Jackson Leroy MD at 12:51 EDT , Physical Exam Narrative General: Alert and oriented x3, NAD. HEENT: Normocephalic, atraumatic. Mucous membrane moist without erythema. PERRLA, EOMI. Hearing is intact. Neck: Supple, no JVD. Trachea is midline. No thyromegaly or lymphadenopathy. Cardiovascular: Normal S1, S2. No rubs, murmurs, or gallops. Respiratory: Decreased breath sound at bases bilaterally. No wheezing. Abdomen: Normal bowel sounds, soft, nontender, no guarding or rebound, no organomegaly. Extremities: No clubbing or cyanosis. There is 2+ edema of the lower extremity bilaterally. Musculoskeletal: Full passive range of motion, no joint swelling. Psychiatric: Normal mood and affect. Skin: Warm and dry, no rash. Neurologic: Cranial nerve II to XII are grossly intact. No focal neurologic deficits. Assessment & Plan Assessment/Plan (1) THEE (acute kidney injury): (2) Chronic kidney disease, stage 4 (severe): (3) Benign hypertension: (4) CHF exacerbation: PLAN: Plan Impression/Plan: 72-year-old man with past history of chronic kidney disease stage G4/A3, type 2 diabetes mellitus, hypertension, prior stroke, hypothyroidism, neuropathy, asthma, BPH, GERD, and depression. The patient presented to the hospital with acute hypoxic respiratory failure thought to be secondary to decompensated heart failure. Nephrology is following for THEE on CKD. Acute kidney injury on chronic kidney disease stage G4/A3. Came to our office within the last 2 months. His creatinine last year was in the mid ones, recently increased to 3.3 or so. Nephrotic range proteinuria at 7.7 g. He does have history of type 2 diabetes on and off, there was a point he came off diabetes medications since A1c was less than 6. Did not have proteinuria until recently. Worsening renal failure, associated hypertension. Serologies were negative. He was originally scheduled for a biopsy but was canceled due to high blood pressure. Multiple adjustments to blood pressure medications. He was originally scheduled for biopsy as outpatient on the 13th of this month. We will try to get this done tomorrow. Creatinine remained stable overall. Hypertension. BP has been significantly high lately. Add alpha-mustapha today Acute hypoxic respiratory failure secondary to volume overload. Echocardiogram looks normal essentially. Continue Lasix for now.
[2023-02-01 11:25] LABS: Bedside Glucose 115 mg/dL (74-106)
[2023-02-01 17:28] LABS: Bedside Glucose 108 mg/dL (74-106)
[2023-02-01] MEDS: Donepezil HCl 10 MG Tablet PO (21:06)
[2023-02-01] MEDS: Atorvastatin Calcium 80 MG Tablet PO (21:07)
[2023-02-01] MEDS: Doxazosin 4 MG Tablet PO (21:08)
[2023-02-01 23:37] LABS: Bedside Glucose 129 mg/dL (74-106)
[2023-02-02] VITALS (20 sets, daily range): BP systolic 127–203; BP diastolic 55–98; PULSE 66–87; RESP 12–18; TEMP 36.5–36.8; O2SAT 90–98; BMI 32.0
[2023-02-02] MEDS: Levothyroxine 150 MCG Tablet PO (05:28)
[2023-02-02] MEDS: hydrALAZINE 50 MG Tablet 100 MG PO ×3 (05:28→21:35)
[2023-02-02 06:36] LABS: Bedside Glucose 104 mg/dL (74-106)
[2023-02-02 06:45] LABS: Absolute Lymphocyte Count 0.54 X10^3/uL (0.83-4.51); Absolute Neutrophil Count 3.8 X10^3/uL (2.0-7.7); Basophil# 0.03 X10^3/uL; Basophil% 0.6 % (0-1); Eosinophil# 0.28 X10^3/uL; Eosinophils% 5.5 % (0-5); Hematocrit 26.3 % (40-54); Lymphocyte # 0.54 X10^3/ul (0.83-4.51); Lymphocyte % 10.6 % (19-41); Mean Corp Hgb Conc 34.2 g/dL (32-36); Mean Corpuscular Volume 93.6 fL (80-94); Mean Platelet Vol. 10.9 fl (6.2-12.0); Monocyte# 0.47 X10^3/uL; Monocyte% 9.2 % (0-10); NRBC Flagged by Analyzer 0 % (0-5); Neutrophil # 3.75 X10^3/uL (2.7-7.7); Neutrophil % 73.5 % (47-70); POSITIVE DIFFERENTIAL YES; Platelet Count 137 K/mm3 (150-450); RBC Distribution Width CV 12.8 % (11.6-14.6); Red Blood Count 2.81 M/mm3 (4.6-6.2); White Blood Count 5.1 K/mm3 (4.4-11.0)
[2023-02-02 06:52] LABS: Differential Indicated SCAN CRITERIA MET
[2023-02-02] MEDS: Budesonide Respules 0.5 MG/2 ML AMPUL.NEB. INHALATION ×2 (06:55→19:25)
[2023-02-02 07:19] LABS: Anion Gap 6 (5-15); BUN 58 mg/dL (7-18); BUN/Creat Ratio 13.5 RATIO (10-20); Calcium,Total 8.2 mg/dL (8.5-10.1); Chloride 108 mmol/L (98-107); Creatinine, Serum 4.29 mg/dL (0.70-1.30); EST Glomerular Filtration Rate 15 mL/min (>60); Est Glom Filt Rate - Afr Amer 18 mL/min (>60); Estimated Creatinine Clearance 17.08 ml/min; Glucose 101 mg/dL (74-106); Potassium 3.9 mmol/L (3.5-5.1); Sodium Level 137 mmol/L (136-145)
[2023-02-02 07:20] LABS: Differential Comment SCANNED
[2023-02-02] MEDS: Metoprolol(XL)Succ 50 MG Tablet PO (08:46)
[2023-02-02] MEDS: amLODIPine 10 MG Tablet PO (08:46)
--- NOTE | 2023-02-02 08:48 | CT_ITS ---
PROCEDURE: CT GUIDED PERCUTANEOUS KIDNEY BIOPSY. DATE: February 02, 2023. INDICATION: Male, 72 years old. Acute renal failure. PHYSICIAN: Jackson Leroy M.D. MEDICATIONS: 2 mg of Versed and 50 mcg of fentanyl intravenously. Conscious sedation was started at 10:30 AM and terminated at 10:48 AM. The patient was independently monitored by the department nurse. ACCESS SITE: Lower pole of the right kidney NEEDLE: . 18-gauge core biopsy needle SPECIMEN: 4 cores. EBL: None. COMPLICATIONS: None immediate. RADIATION DOSAGE (If Supplied By Facility): CTDIvol = ( 26 ) mGy, DLP = ( 834.45 ) mGycm. Individualized dose optimization techniques were utilized. The risks, benefits, and alternatives to the procedure and sedation were explained to the patient. The specific risk of hemorrhage requiring further treatment or intervention was detailed and accepted. Written informed consent was obtained. The patient was placed on the CT table in the prone position. Multiple axial images were obtained from the lung base through the caudal extent of the kidneys. An appropriate entry site was identified and a [place] made on the skin. The skin overlying the [ right] posterior flank was prepped and draped in sterile fashion. 1% lidocaine was administered subcutaneously for local anesthesia. Initially, a 22 gauge needle was advanced and CT images confirmed good needle position. The 22 gauge needle was then exchanged for an 17 gauge introducer needle which was advanced. Repeat CT images confirmed good needle trajectory and tip position. The introducer needle was then advanced into the periphery of the inferior renal pole, and CT images were again obtained to confirm exact tip location. The inner stylet of the introducer needle was then removed and an 18 gauge coaxial needle was advanced thru the introducer needle and biopsy performed. A total of [4 ] passes were performed and the specimen collected was sent to Pathology for further evaluation. The needle was withdrawn. Hemostasis was achieved with manual compression and a sterile dressing was applied. Repeat CT images of the biopsy area was performed which demonstrated no gross bleeding or hematoma. The patient tolerated the procedure well without immediate complications. The patient was transported to the [floor/recovery area] in stable condition. CT/Biopsy/Inj or Needle Placement IMPRESSION: Successful CT guided percutaneous kidney biopsy. Conscious sedation protocol was followed. Electronically Signed: Jackson Leroy MD at 11:43 EDT ,
--- NOTE | 2023-02-02 09:20 | PCM.PN.HOSP ---
Subjective Subjective Doing well, feels better today, not on oxygen currently Objective Data Objective Data Vital Signs: Vital Signs Temp Pulse Resp BP Pulse Ox O2 Del Method O2 Flow Rate 97.7 F L 74 18 177/78 H 98 Room Air 1 02/02/23 08:40 02/02/23 08:46 02/02/23 08:40 02/02/23 08:46 02/02/23 08:40 02/02/23 08:40 02/02/23 06:56 Oxygen Flow Rate (L/min) 1 Oxygen Delivery Method Room Air Weight: 236 lb 5.369 oz Body Mass Index (BMI) 32.0 Intake & Output: Intake and Output for Last 24 Hours 02/01/23 02/02/23 02/03/23 03:59 03:59 03:59 Intake Total 900 / 900 120 / 120 Output Total 3100 / 3100 450 / 450 Balance -2200 / -2200 120 / 120 -450 / -450 Lab / Micro Data 02/02/23 06:10 02/02/23 06:10 Labs: Laboratory Results - last 24 hr 02/01/23 10:57: POC Glucose 115 H 02/01/23 17:09: POC Glucose 108 H 02/01/23 22:30: POC Glucose 129 H 02/02/23 06:10: WBC 5.1, RBC 2.81 L, Hgb 9.0 L, Hct 26.3 L, MCV 93.6, MCH 32.0, MCHC 34.2 D, RDW Std Deviation 44.0 H, RDW Coeff of Misael 12.8, Plt Count 137 L, MPV 10.9, Immature Gran % (Auto) 0.600, Neut % (Auto) 73.5 H, Lymph % (Auto) 10.6 L, Hand % (Auto) 9.2, Eos % (Auto) 5.5 H, Baso % (Auto) 0.6, Absolute Neuts (auto) 3.8, Absolute Lymphs (auto) 0.54 L, Nucleated RBC % 0, Differential Comment SCANNED, Sodium 137, Potassium 3.9, Chloride 108 H, Carbon Dioxide 23.0, Anion Gap 6, BUN 58 H, Creatinine 4.29 H, Estim Creat Clear Calc 17.08, Est GFR (MDRD) Af Amer 18 L, Est GFR (MDRD) Non-Af 15 L, BUN/Creatinine Ratio 13.5, Glucose 101, Calcium 8.2 L 02/02/23 06:12: POC Glucose 104 Micro: Microbiology 01/31/23 02:22 Urine, Clean Catch Urine Culture - Final Culture exhibits no growth. Physical Exam Narrative General: Alert, Oriented x3, Cooperative, No apparent distress HEENT: Atraumatic, PERRLA, EOMI, Normocephalic Oral: Moist Mucosa Neck: Supple, No JVD Lungs: Diminished, Normal air movement, No rhonchi, No wheeze, No rales Cardiovascular: Regular rate, Regular Rhythm, Normal S1, Normal S2, No murmurs Abdomen: Soft, Non Tender, Non-Distended, No Hepato-splenomegaly Extremities: Edema, Capillary Refill Less than 3 Seconds Skin: No rashes, No breakdown Musculoskeletal: No Tenderness to Palpation of Joints or Extremities Neurological: Motor Exam 5/5 strength throughout, Sensory exam intact to light touch and pain Psych/Mental Status: Normal Affect, Appropriate Assessment & Plan Assessment/Plan (1) CHF exacerbation: PLAN: Plan 1. Acute renal failure of unclear etiology with increased dyspnea and swelling/anemia of chronic disease ? Echo was unremarkable, there is no reduced EF or diastolic dysfunction therefore he does not have heart failure ? Appreciate nephrology's assistance ? We will obtain a renal biopsy today ? Continue with IV Lasix, his edema and shortness of breath is likely secondary to his renal failure given that he has significant proteinuria ? Currently off of oxygen, will obtain an ambulatory pulse ox 2. HTN/HLD/history of CVA ? Continue with his home blood pressure medications ? Continue with statin 3. DM2 with neuropathy ? We will hold his oral metformin ? Accu-Cheks ACHS ? Sliding scale insulin ? We will make adjustments as necessary 4. Hypothyroidism ? Stable ? Continue with Synthroid 5. Anxiety/depression/dementia ? Stable ? Continue with his home medications 6. GERD ? Stable ? Continue with PPI 7. 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 8. BPH ? Stable ? Continue with Flomax DVT: Heparin Charges/Coding Visit Charges Inpatient E&M: 33816 Subs Hosp L2
[2023-02-02 09:21] LABS: International Normalized Ratio 1.1; Prothrombin Time (Protime)PT. 14.6 SECONDS (11.7-14.9)
[2023-02-02 09:23] LABS: Partial Thromboplast Time 35.1 Seconds (24.1-36.2)
--- NOTE | 2023-02-02 09:50 | NURSING ---
NOTIFIED DR. SHIELDS OF PATIENT ELEVATED BP. PATIENT HAS PRN ORDER FOR IV HYDRALAZINE FOR SBP >160. DR. SHIELDS INSTRUCTED TO GIVE PRN DOES OF HYDRALAZINE. WILL CONTINUE TO MONITOR.
[2023-02-02] MEDS: hydrALAZINE 20 MG/ML Vial 10 MG IV (10:02)
[2023-02-02] MEDS: Midazolam 2 MG/2 ML Syringe IV (10:30)
[2023-02-02] MEDS: fentaNYL 100 MCG/2 ML Ampul IV (10:31)
[2023-02-02] MEDS: Lidocaine 2% (20 ml mdv) 20 ML Vial INFILT (10:38)
--- NOTE | 2023-02-02 10:40 | KI_PTH ---
PATIENT: CINDY LEDESMA LOC: [facility] U#:[id number] AGE/SX: 72/M ROOM: [facility] RE01/31/[address]: Dr. Abdullahi Crockett DO : 1950 BED: 1 DIS: 02/03/2023 SPEC #: [id number] RECD: 02/02/23 11:12 STATUS: ALIRIO JAIMIE #: [id number] HONEY: 02/02/23 10:[address]: Beto De Jesus DEPT: SURGICAL PATHOLOGY RECD BY: Yuliya Ryan ENTERED: 02/02/23 11:12 SP TYPE: KIDNEY BX OTHR DR: MD Dr. Aram Pascal MD Carolyn Graham, BARREL CUTTER-C Tissues: Kidney, NOS Procedures: Electron Microscopy (ACH) Kidney Biopsy (ACH) Special Stain Group II Comments: @ Ordering doctor for KIDBX edited from to @ by ARCENIO at 02/02/23 1416 @ Submitting doctor edited from to @ by ARCENIO at 02/02/23 1416 HEADER OPERATION: CT guided kidney biopsy PRE-OP DIAGNOSIS: THEE TISSUE SUBMITTED: Right lower pole kidney, 18 ga core x 4 to [facility] for analysis (totally) MICROSCOPIC DIAGNOSIS Kidney, needle biopsy: Changes consistent with diabetic nephropathy and hypertensive nephrosclerosis Severe interstitial fibrosis and tubular atrophy Severe arterio- and arteriolosclerosis (see Microscopic Description and comment) COMMENT Taken together, the light and electron microscopy findings are indicative of diabetic nephropathy and hypertensive nephrosclerosis. Although the tissue submitted for immunofluorescence was lost in processing, the lack of electron-dense immune-type deposits, along with the presence of diabetic and hypertensive pathological changes, suggests that immunofluorescence is this case would not contribute significantly to the pathologic diagnosis. Preliminary diagnosis discussed with Dr. De Jesus on 02/03/[address] Bassett MICROSCOPIC DESCRIPTION MICROSCOPIC EXAMINATION: A needle biopsy is available for review. There are approximately 19 glomeruli present, 7 of which are globally sclerotic. Another 8 glomeruli show near-total glomerulosclerosis. The few remaining glomeruli show a vague nodular pattern along with increase in mesangial matrix material and cellularity. Glomeruli show no evidence of segmental scars, crescent formation, necrosis, thrombosis, or inflammation. PAS, yareli, and trichrome stains show no evidence of glomerular basement membrane double contours, spikes, or fuchsinophilic immune type deposits. Trichrome highlights interstitial fibrosis and tubular atrophy involving over 50% of the cortical area sampled. There is only minimal mixed inflammatory infiltrate in the interstitium. A [place] red stain for amyloid is negative. Tubules contain scattered hyaline casts. Arteries and arterioles show severe arterio- and arteriolosclerosis, respectively. There is also severe arteriolar hyalinosis. IMMUNOFLUORESCENCE: The tissue submitted for immunofluorescence studies wea lost in processing and no immunofluorescence was performed. ELECTRON MICROSCOPY: The tissue submitted for electron microscopy studies contains three glomeruli, two of which are globally sclerotic. Ultrastructural examination reveals that the glomerular capillary loops are patent in the nonsclerotic glomerulus. There is a moderate increase in mesangial matrix material in a nodular pattern in the glomerulus. The glomerular basement membranes are of approximately normal caliber. There is no significant increase in effacement of the visceral epithelial foot processes. There are no electron-dense immune-type deposits seen. ides are reviewed. GROSS DESCRIPTION Received within transport media labeled with the patient's name and kidney biopsy are four cores of reid pink soft tissue, ranging in size from 1.2 - 1.5 cm in length and averaging 0.1 cm in diameter. Tissue is submitted fresh for immunofluorescence, in glutaraldehyde for electron microscopy, and the remaining in formalin for light microscopy (cassette A1)
--- NOTE | 2023-02-02 12:09 | PCM.PN.REN ---
Subjective Subjective No new events. Off oxygen today. Objective Data Objective Data Vital Signs: Vital Signs Temp Pulse Resp BP Pulse Ox O2 Del Method O2 Flow Rate 97.8 F 66 14 162/75 H 93 Room Air 2 02/02/23 10:18 02/02/23 11:08 02/02/23 11:08 02/02/23 11:08 02/02/23 11:08 02/02/23 11:08 02/02/23 10:28 Oxygen Flow Rate (L/min) [5] 2 Oxygen Flow Rate (L/min) [4] 2 Oxygen Flow Rate (L/min) [3] 2 Oxygen Flow Rate (L/min) [2] 2 Oxygen Flow Rate (L/min) 1 Oxygen Delivery Method [5] Nasal Cannula Oxygen Delivery Method [4] Room Air Oxygen Delivery Method [3] Nasal Cannula Oxygen Delivery Method [2] Nasal Cannula Oxygen Delivery Method [1 ( Room Air Initial Baseline)] Oxygen Delivery Method Room Air Weight: 107.2 kg Body Mass Index (BMI) 32.0 Intake & Output: Intake and Output for Last 24 Hours 01/31/23 02/01/23 02/02/23 23:59 23:59 23:59 Intake Total 900 / 900 120 / 120 65.25 / 65.25 Output Total 3100 / 3100 450 / 450 Balance -2200 / -2200 120 / 120 -384.75 / -384.75 Lab / Micro Data 02/02/23 06:10 02/02/23 06:10 Labs: Laboratory Results - last 24 hr 02/01/23 17:09: POC Glucose 108 H 02/01/23 22:30: POC Glucose 129 H 02/02/23 06:10: WBC 5.1, RBC 2.81 L, Hgb 9.0 L, Hct 26.3 L, MCV 93.6, MCH 32.0, MCHC 34.2 D, RDW Std Deviation 44.0 H, RDW Coeff of Misael 12.8, Plt Count 137 L, MPV 10.9, Immature Gran % (Auto) 0.600, Neut % (Auto) 73.5 H, Lymph % (Auto) 10.6 L, [place] % (Auto) 9.2, Eos % (Auto) 5.5 H, Baso % (Auto) 0.6, Absolute Neuts (auto) 3.8, Absolute Lymphs (auto) 0.54 L, Nucleated RBC % 0, Differential Comment SCANNED, PT 14.6, INR 1.1, APTT 35.1, Sodium 137, Potassium 3.9, Chloride 108 H, Carbon Dioxide 23.0, Anion Gap 6, BUN 58 H, Creatinine 4.29 H, Estim Creat Clear Calc 17.08, Est GFR (MDRD) Af Amer 18 L, Est GFR (MDRD) Non-Af 15 L, BUN/Creatinine Ratio 13.5, Glucose 101, Calcium 8.2 L 02/02/23 06:12: POC Glucose 104 Micro: Microbiology 01/31/23 02:22 Urine, Clean Catch Urine Culture - Final Culture exhibits no growth. Physical Exam Narrative General: Alert and oriented x3, NAD. HEENT: Normocephalic, atraumatic. Mucous membrane moist without erythema. PERRLA, EOMI. Hearing is intact. Neck: Supple, no JVD. Trachea is midline. No thyromegaly or lymphadenopathy. Cardiovascular: Normal S1, S2. No rubs, murmurs, or gallops. Respiratory: Decreased breath sound at bases bilaterally. No wheezing. Abdomen: Normal bowel sounds, soft, nontender, no guarding or rebound, no organomegaly. Extremities: No clubbing or cyanosis. There is 2+ edema of the lower extremity bilaterally. Musculoskeletal: Full passive range of motion, no joint swelling. Psychiatric: Normal mood and affect. Skin: Warm and dry, no rash. Neurologic: Cranial nerve II to XII are grossly intact. No focal neurologic deficits. Assessment & Plan Assessment/Plan (1) THEE (acute kidney injury): (2) Chronic kidney disease, stage 4 (severe): (3) Benign hypertension: (4) CHF exacerbation: PLAN: Plan Impression/Plan: 72-year-old man with past history of chronic kidney disease stage G4/A3, type 2 diabetes mellitus, hypertension, prior stroke, hypothyroidism, neuropathy, asthma, BPH, GERD, and depression. The patient presented to the hospital with acute hypoxic respiratory failure thought to be secondary to decompensated heart failure. Nephrology is following for THEE on CKD. Acute kidney injury on chronic kidney disease stage G4/A3. Came to our office within the last 2 months. His creatinine last year was in the mid ones, recently increased to 3.3 or so. Nephrotic range proteinuria at 7.7 g. He does have history of type 2 diabetes on and off, there was a point he came off diabetes medications since A1c was less than 6. Did not have proteinuria until recently. Worsening renal failure, associated hypertension. Serologies were negative. He was originally scheduled for a biopsy but was canceled due to high blood pressure. Multiple adjustments to blood pressure medications. He was originally scheduled for biopsy as outpatient on the 13th of this month. Biopsy scheduled for today. It will take couple of days for the results to come back. If he is clinically stable otherwise, can potentially go home tomorrow and then I will arrange close follow-up. Hypertension. BP has been significantly high lately. better Acute hypoxic respiratory failure secondary to volume overload. Echocardiogram looks normal essentially. Continue Lasix for now.
[2023-02-02] MEDS: Loratadine 10 MG Tablet PO (12:14)
[2023-02-02] MEDS: Montelukast 10 MG Tablet PO (12:14)
[2023-02-02] MEDS: Fluticasone 0.05% 1 SPRAY NASAL.SRY NASAL ×2 (12:14→21:37)
[2023-02-02] MEDS: Heparin Injection (Vial) 5,000 UNIT/ML VIAL 5000 UNIT SC ×2 (12:15→21:37)
[2023-02-02] MEDS: Folic Acid 1 MG Tablet PO (12:15)
[2023-02-02] MEDS: Pantoprazole Sodium 40 MG Tablet PO ×2 (12:15→21:34)
[2023-02-02] MEDS: Citalopram 40 MG TABLET PO (12:15)
[2023-02-02] MEDS: Aspirin E.C. 81 MG Tablet PO (12:15)
[2023-02-02] MEDS: Furosemide 40 MG/4 ML Vial IV ×2 (12:15→17:08)
[2023-02-02] MEDS: 0.9% Saline Lock 10 ML Syringe IV ×2 (12:18→17:08)
[2023-02-02 12:59] LABS: Bedside Glucose 90 mg/dL (74-106)
[2023-02-02 17:59] LABS: Bedside Glucose 149 mg/dL (74-106)
[2023-02-02] MEDS: Atorvastatin Calcium 80 MG Tablet PO (21:35)
[2023-02-02] MEDS: Doxazosin 4 MG Tablet PO (21:36)
[2023-02-02] MEDS: Donepezil HCl 10 MG Tablet PO (21:37)
[2023-02-02 22:28] LABS: Bedside Glucose 157 mg/dL (74-106)
[2023-02-03] VITALS (7 sets, daily range): BP systolic 126–166; BP diastolic 57–85; PULSE 68–73; RESP 16–18; TEMP 36.7–36.8; O2SAT 94–95; BMI 32.8
[2023-02-03 05:49] LABS: Absolute Lymphocyte Count 0.57 X10^3/uL (0.83-4.51); Absolute Neutrophil Count 4.6 X10^3/uL (2.0-7.7); Basophil# 0.02 X10^3/uL; Basophil% 0.3 % (0-1); Eosinophil# 0.28 X10^3/uL; Eosinophils% 4.6 % (0-5); Hematocrit 23.7 % (40-54); Hemoglobin 7.8 g/dL (13.0-16.5); Lymphocyte # 0.57 X10^3/ul (0.83-4.51); Lymphocyte % 9.3 % (19-41); Mean Corp Hgb Conc 32.9 g/dL (32-36); Mean Corpuscular Hgb 31.2 pg (27.0-32.0); Mean Corpuscular Volume 94.8 fL (80-94); Mean Platelet Vol. 10.5 fl (6.2-12.0); Monocyte# 0.61 X10^3/uL; NRBC Flagged by Analyzer 0 % (0-5); Neutrophil # 4.59 X10^3/uL (2.7-7.7); Neutrophil % 75.3 % (47-70); POSITIVE DIFFERENTIAL YES; Platelet Count 134 K/mm3 (150-450); RBC Distribution Width CV 12.7 % (11.6-14.6); RBC Distribution Width SD 43.7 fl (35.1-43.9); White Blood Count 6.1 K/mm3 (4.4-11.0)
[2023-02-03 05:52] LABS: Differential Indicated SCAN CRITERIA MET
[2023-02-03 06:20] LABS: Differential Comment SCANNED
[2023-02-03] MEDS: hydrALAZINE 50 MG Tablet 100 MG PO (06:24)
[2023-02-03 06:25] LABS: Anion Gap 6 (5-15); BUN 71 mg/dL (7-18); BUN/Creat Ratio 15.8 RATIO (10-20); Calcium,Total 7.9 mg/dL (8.5-10.1); Chloride 106 mmol/L (98-107); Creatinine, Serum 4.48 mg/dL (0.70-1.30); EST Glomerular Filtration Rate 14 mL/min (>60); Est Glom Filt Rate - Afr Amer 17 mL/min (>60); Estimated Creatinine Clearance 16.36 ml/min; Glucose 103 mg/dL (74-106); Potassium 4.2 mmol/L (3.5-5.1); Sodium Level 136 mmol/L (136-145)
[2023-02-03] MEDS: Levothyroxine 150 MCG Tablet PO (06:25)
[2023-02-03 06:46] LABS: Bedside Glucose 104 mg/dL (74-106)
[2023-02-03] MEDS: Budesonide Respules 0.5 MG/2 ML AMPUL.NEB. INHALATION (07:43)
[2023-02-03] MEDS: Heparin Injection (Vial) 5,000 UNIT/ML VIAL 5000 UNIT SC (10:21)
[2023-02-03] MEDS: Fluticasone 0.05% 1 SPRAY NASAL.SRY NASAL (10:22)
[2023-02-03] MEDS: Citalopram 40 MG TABLET PO (10:22)
[2023-02-03] MEDS: Folic Acid 1 MG Tablet PO (10:23)
[2023-02-03] MEDS: Montelukast 10 MG Tablet PO (10:23)
[2023-02-03] MEDS: Furosemide 40 MG/4 ML Vial IV (10:23)
[2023-02-03] MEDS: Metoprolol(XL)Succ 50 MG Tablet PO (10:23)
[2023-02-03] MEDS: Aspirin E.C. 81 MG Tablet PO (10:23)
[2023-02-03] MEDS: Loratadine 10 MG Tablet PO (10:23)
[2023-02-03] MEDS: amLODIPine 10 MG Tablet PO (10:23)
[2023-02-03] MEDS: 0.9% Saline Lock 10 ML Syringe IV (10:25)
[2023-02-03] MEDS: Pantoprazole Sodium 40 MG Tablet PO (10:34)
--- NOTE | 2023-02-03 11:18 | CASEMGMT ---
Patient has a Healthcare Power of Client Specialist and Healthcare Living Will in E-Chart. SW printed documents and will place in paper chart to get scanned into new Gra[employer]. Patient's Jessi is his Healthcare Power of Client Specialist. Bisi Clark INTERNHollis HAMILTON
--- NOTE | 2023-02-03 11:25 | CASEMGMT ---
RN CM NOTE: Per Dr Crockett, pt will be discharging home today. RN CM to room. Pt resting in bed. @ bedside. Introduced self and role. states pt has an appt w/Dr De Jesus tomorrow @ 3:15 PM to discuss kidney biopsy results. Both pt and deny wanting HHC and deny having any discharge planning needs or concerns. They were informed to ask for CM if anything arises. They voice understanding. Kaleigh NUNESN RN CM
[2023-02-03] MEDS: Insulin Lispro 100 UNIT/ML INSULN.PEN SC (12:04)
--- NOTE | 2023-02-03 12:16 | PCM.DC ---
Discharge Instructions Diet Discharge Diet: 1800 Calorie Control Diet Activity Discharge Activity: Return to Normal Activity Weight Bearing Status: Full weight bearing Follow Up Care Test Results: Test results from this visit will be discussed in further detail at your follow-up appointment, if applicable. Discharge Plan Admission Admit Date/Time: 01/31/23 00:28 Primary Reason for Your Visit: acute kidney failure Attending Provider: Abdullahi Crockett Primary Care Provider: Jaad Arzola Consulting Providers: Danna Johnson; Aram Sevilla Instructions Patient Instructions: RAD machinist general Instructions for Kidney Biopsy, RAD RN Procedural Sedation Discharge Orders/Prescriptions Prescriptions: New levothyroxine 150 mcg Tablet 300 mcg PO Aaron@0600 Qty: 0 0RF doxazosin 4 mg Tablet 4 mg PO QHS Qty: 30 0RF furosemide [Lasix] 20 mg tablet 60 mg PO DAILY Qty: 90 0RF Continued aspirin [Adult Aspirin Regimen] 81 mg tablet,delayed release (DR/EC) 81 mg PO DAILY citalopram 40 mg tablet 40 mg PO DAILY atorvastatin 80 mg tablet 80 mg PO QPM fenofibrate nanocrystallized 145 mg tablet 145 mg PO DAILY Qty: 1 0RF amlodipine 10 mg tablet 10 mg PO DAILY folic acid 800 mcg tablet 0.8 mg PO DAILY cholecalciferol (vitamin D3) 125 mcg (5,000 unit) capsule 125 mcg PO DAILY ascorbic acid (vitamin C) 1,000 mg tablet 1 g PO DAILY zinc 50 mg tablet 50 mg PO DAILY levothyroxine 150 mcg tablet 150 mcg PO .daily, 2 on Tuesday glipizide 5 mg tablet extended release 24hr 5 mg PO DAILY Qty: 90 3RF tamsulosin 0.4 MG capsule 0.8 mg PO DAILY fluticasone propionate 1 SPRAY spray,suspension 1 spray NASAL BID lansoprazole [Prevacid] 30 MG capsule 30 mg PO BID montelukast [Singulair] 10 mg Tablet 10 mg PO DAILY loratadine [Claritin] 10 mg Tablet 10 mg PO DAILY metoprolol succinate 50 mg tablet extended release 24 hr 50 mg PO DAILY hydralazine 50 mg tablet 100 mg PO TID Vyvanse 70 mg capsule 70 mg PO DAILY dapagliflozin propanediol 10 mg tablet 5 mg PO DAILY Trulicity 3 mg/0.5 mL pen injector 3 mg subcut QWEEK Qty: 2 5RF (DME) OneTouch Ultra Test Strip See Rx Instructions .Route Qty: 100 5RF Rx Instructions: BID Changed donepezil 10 mg tablet 10 mg PO DAILY Qty: 1 0RF Discontinued metformin 1,000 mg tablet 1,000 mg PO BID metoprolol succinate 25 mg tablet extended release 24 hr 25 tablet PO DAILY hydrochlorothiazide 25 MG tablet 25 mg PO DAILY methylphenidate HCl 36 mg tablet extended release 24hr 36 mg PO DAILY Hold Instructions: Order Changed Patient Comments: TAKE 1 TABLET BY MOUTH ONCE DAILY IN THE MORNING losartan 50 mg tablet 50 mg PO DAILY losartan 100 mg tablet 100 mg PO DAILY Qty: 90 1RF No Action (DME) blood-glucose meter [OneTouch Ultra2 Meter] Misc See Rx Instructions .Route Qty: 1 0RF Rx Instructions: As directed Referrals / Follow Up: Beto De Jesus MD [Med Staff - Consulting] - See Referral Note (Tomorrow at 3:15 PM) Jada Arzola NP-C [Primary Care Provider] - See Referral Note (At next scheduled visit) Disposition Disposition (needs filled in before D/C Order can be placed): Home, Self Care
[2023-02-03 12:19] LABS: Bedside Glucose 150 mg/dL (74-106)
--- NOTE | 2023-02-03 12:52 | DS.PCM_ITS ---
Providers Date of Admission: 01/31/23 Date of Discharge: 02/03/23 Primary Care Physician: AYDEN Cristobal Consultations 01/31/23 01:29 Consult: Nephrology Routine Consulting Provider: Beto De Jesus Reason for Consult: ? THEE on CKD, worsening renal disease, ? cardiorenal syndrome EMERGENT Consult: No MD Notified: No Date Notified: 01/31/23 Time Notified: 00:51 Reason For Visit: CHF EXACERBATION Diagnosis Discharge Diagnosis (1) THEE (acute kidney injury): Status: Acute Code(s): N17.9 - Acute kidney failure, unspecified (2) Chronic kidney disease, stage 4 (severe): Status: Chronic Code(s): N18.4 - Chronic kidney disease, stage 4 (severe) (3) Benign hypertension: Status: Chronic Code(s): I10 - Essential (primary) hypertension (4) CHF exacerbation: Status: Chronic Code(s): I50.9 - Heart failure, unspecified (5) Dementia: Status: Acute Code(s): F03.90 - Unspecified dementia, unspecified severity, without behavioral disturbance, psychotic disturbance, mood disturbance, and anxiety Plan 1. Acute kidney injury on a backdrop of stage IV chronic kidney disease #2 essential hypertension #3 hyperlipidemia #4 cerebrovascular disease #5 type 2 diabetes #6 hypothyroidism #7 chronic anxiety/depression #8 pulmonary vascular congestion secondary to acute kidney injury on a backdrop of stage IV chronic kidney disease #9 hypoxia secondary to #8 Medications at Discharge Home Medications fluticasone propionate 50 mcg/actuation nasal spray,suspension 1 spray BID 07/10/13 lansoprazole 30 mg capsule,delayed release (Prevacid) 30 mg PO BID 07/10/13 tamsulosin 0.4 mg capsule 0.8 mg PO DAILY 07/10/13 aspirin 81 mg tablet,delayed release (Adult Aspirin Regimen) 81 mg PO DAILY 09/30/20 atorvastatin 80 mg tablet 80 mg PO QPM 09/30/20 citalopram 40 mg tablet 40 mg PO DAILY 09/30/20 fenofibrate nanocrystallized 145 mg tablet 145 mg PO DAILY #1 TAB 09/30/20 amlodipine 10 mg tablet 10 mg PO DAILY 04/02/21 ascorbic acid (vitamin C) 1,000 mg tablet 1 g PO DAILY 04/02/21 cholecalciferol (vitamin D3) 125 mcg (5,000 unit) capsule 125 mcg PO DAILY 04/02/21 folic acid 800 mcg tablet 0.8 mg PO DAILY 04/02/21 zinc 50 mg tablet 50 mg PO DAILY 04/02/21 levothyroxine 150 mcg tablet 150 mcg PO .daily, 2 on Tuesday10/01/21 loratadine 10 mg tablet (Claritin) 10 mg PO DAILY 12/20/21 montelukast 10 mg tablet (Singulair) 10 mg PO DAILY 12/20/21 glipizide 5 mg tablet, extended release 24 hr 5 mg PO DAILY #90 tabs 09/28/22 dulaglutide 3 mg/0.5 mL subcutaneous pen injector (Trulicity) 3 mg (0.5 mL) subcut QWEEK #2 mL 10/20/22 blood sugar diagnostic (ViewsIQTouch Ultra Test strips) #100 ea 01/19/23 blood-glucose meter (ViewsIQTouch Ultra2 Meter) #1 ea 01/19/23 dapagliflozin propanediol 10 mg tablet 5 mg PO DAILY 01/30/23 hydralazine 50 mg tablet 100 mg PO TID 01/30/23 lisdexamfetamine 70 mg capsule (Vyvanse) 70 mg PO DAILY 01/30/23 metoprolol succinate 50 mg tablet,extended release 24 hr 50 mg PO DAILY 01/30/23 donepezil 10 mg tablet 10 mg PO DAILY . #1 TAB 02/03/23 doxazosin 4 mg tablet 4 mg PO QHS #30 tabs 02/03/23 furosemide 20 mg tablet (Lasix) 60 mg (3 x 20 mg) PO DAILY #90 tabs 02/03/23 levothyroxine 150 mcg tablet 300 mcg (2 x 150 mcg) PO Aaron@0600 #0 tabs 02/03/23 Hospital Course Operations None Procedures 2-D Echocardiogram and - (CT-guided percutaneous kidney biopsy of the right kidney) Summary of Care Provided Minutes Spent on Discharge: 31 Hospital Course: This 72-year-old white male was seen in the emergency room at [facility] with chief complaint of shortness of breath. Work-up in the emergency room included labs which showed an elevated BUN of 48 and a creatinine of 4.65, beta nitric peptide was elevated at 748, there was noted to be mild anemia with hemoglobin of 10, chest x-ray showed moderate congestive heart failure. Patient was admitted to PCU, he was seen in consultation by nephrology, patient's oxygen was titrated and he was placed on some IV diuretics, labs were monitored, patient underwent a right kidney biopsy due to concerns that his kidney functions have deteriorated suddenly. Echocardiogram was obtained which showed a normal EF. There were no complications during the patient's hospitalization. On 02/03/2023, patient was seen and examined: On examination he appeared in good health and spirits. Vital signs as documented. Skin warm and dry and without overt rashes. Neck without JVD, neck was supple, trachea midline, thyroid was normal. Lungs clear bilaterally, normal air movement was noted. Heart exam notable for regular rhythm, normal sounds and absence of murmurs, rubs or gallops. Abdomen unremarkable and without evidence of organomegaly, masses, or abdominal aortic enlargement. Bowel sounds are present, abdomen is not distended. Extremities nonedematous, no cyanosis was noted, no clubbing was noted. Neuro: Cranial nerves II through XII are grossly intact, no focal motor deficits were noted, sensation to light touch and pinprick intact, motor exam 5/5 throughout. Psych: Patient is alert and oriented x3, he does not appear anxious or depressed, he does not appear agitated. Patient appears stable for discharge home on 02/03/2023. Weight / BMI Weight Weight: 110.132 kg Body Mass Index (BMI) 32.8 ABG / Lab / Microbiology Data 02/03/23 05:35 02/03/23 05:35 Laboratory: Laboratory Results - last 24 hr 02/02/23 12:12: POC Glucose 90 02/02/23 17:06: POC Glucose 149 H 02/02/23 21:39: POC Glucose 157 H 02/03/23 05:35: WBC 6.1, RBC 2.50 L, Hgb 7.8 L, Hct 23.7 L, MCV 94.8 H, MCH 31.2, MCHC 32.9, RDW Std Deviation 43.7, RDW Coeff of Misael 12.7, Plt Count 134 L, MPV 10.5, Immature Gran % (Auto) 0.500, Neut % (Auto) 75.3 H, Lymph % (Auto) 9.3 L, [place] % (Auto) 10.0, Eos % (Auto) 4.6, Baso % (Auto) 0.3, Absolute Neuts (auto) 4.6, Absolute Lymphs (auto) 0.57 L, Nucleated RBC % 0, Differential Comment SCANNED, Sodium 136, Potassium 4.2, Chloride 106, Carbon Dioxide 24.0, Anion Gap 6, BUN 71 H, Creatinine 4.48 H, Estim Creat Clear Calc 16.36, Est GFR (MDRD) Af Amer 17 L, Est GFR (MDRD) Non-Af 14 L, BUN/Creatinine Ratio 15.8, Glucose 103, Calcium 7.9 L 02/03/23 06:22: POC Glucose 104 02/03/23 12:01: POC Glucose 150 H Microbiology: Microbiology 01/31/23 02:22 Urine, Clean Catch Urine Culture - Final Culture exhibits no growth. Radiography Diagnostic Testing: Radiology Impression Biopsy CT 02/02/23 08:48 IMPRESSION: Successful CT guided percutaneous kidney biopsy. Conscious sedation protocol was followed. Electronically Signed: Jackson Leroy MD at 11:43 EDT Reading Location ID and State: [facility] / [place] , Service support , D/C Instructions Discharge Diet: 1800 Calorie Control Diet Weight Bearing Status: Full weight bearing Meaningful Use Info Meaningful Use Diagnoses (Choose all that apply): None applicable Discharge Plan Admission Admit Date/Time: 01/31/23 00:28 Primary Reason for Your Visit: acute kidney failure Attending Provider: Abdullahi Crockett Primary Care Provider: Jada Arzola Consulting Providers: Danna Johnson; Aram Sevilla Instructions Patient Instructions: RAD district operations manager Instructions for Kidney Biopsy, RAD RN Procedural Sedation Discharge Orders/Prescriptions Prescriptions: New levothyroxine 150 mcg Tablet 300 mcg PO Aaron@0600 Qty: 0 0RF doxazosin 4 mg Tablet 4 mg PO QHS Qty: 30 0RF furosemide [Lasix] 20 mg tablet 60 mg PO DAILY Qty: 90 0RF Continued aspirin [Adult Aspirin Regimen] 81 mg tablet,delayed release (DR/EC) 81 mg PO DAILY citalopram 40 mg tablet 40 mg PO DAILY atorvastatin 80 mg tablet 80 mg PO QPM fenofibrate nanocrystallized 145 mg tablet 145 mg PO DAILY Qty: 1 0RF amlodipine 10 mg tablet 10 mg PO DAILY folic acid 800 mcg tablet 0.8 mg PO DAILY cholecalciferol (vitamin D3) 125 mcg (5,000 unit) capsule 125 mcg PO DAILY ascorbic acid (vitamin C) 1,000 mg tablet 1 g PO DAILY zinc 50 mg tablet 50 mg PO DAILY levothyroxine 150 mcg tablet 150 mcg PO .daily, 2 on Tuesday glipizide 5 mg tablet extended release 24hr 5 mg PO DAILY Qty: 90 3RF tamsulosin 0.4 MG capsule 0.8 mg PO DAILY fluticasone propionate 1 SPRAY spray,suspension 1 spray NASAL BID lansoprazole [Prevacid] 30 MG capsule 30 mg PO BID montelukast [Singulair] 10 mg Tablet 10 mg PO DAILY loratadine [Claritin] 10 mg Tablet 10 mg PO DAILY metoprolol succinate 50 mg tablet extended release 24 hr 50 mg PO DAILY hydralazine 50 mg tablet 100 mg PO TID Vyvanse 70 mg capsule 70 mg PO DAILY dapagliflozin propanediol 10 mg tablet 5 mg PO DAILY Trulicity 3 mg/0.5 mL pen injector 3 mg subcut QWEEK Qty: 2 5RF (DME) OneTouch Ultra Test Strip See Rx Instructions .Route Qty: 100 5RF Rx Instructions: BID Changed donepezil 10 mg tablet 10 mg PO DAILY Qty: 1 0RF Discontinued metformin 1,000 mg tablet 1,000 mg PO BID metoprolol succinate 25 mg tablet extended release 24 hr 25 tablet PO DAILY hydrochlorothiazide 25 MG tablet 25 mg PO DAILY methylphenidate HCl 36 mg tablet extended release 24hr 36 mg PO DAILY Hold Instructions: Order Changed Patient Comments: TAKE 1 TABLET BY MOUTH ONCE DAILY IN THE MORNING losartan 50 mg tablet 50 mg PO DAILY losartan 100 mg tablet 100 mg PO DAILY Qty: 90 1RF No Action (DME) blood-glucose meter [OneTouch Ultra2 Meter] Misc See Rx Instructions .Route Qty: 1 0RF Rx Instructions: As directed Referrals / Follow Up: Beto De Jesus MD [Med Staff - Consulting] - See Referral Note (Tomorrow at 3:15 PM) Jada Arzola NP-C [Primary Care Provider] - See Referral Note (At next scheduled visit) Disposition Disposition (needs filled in before D/C Order can be placed): Home, Self Care Charges/Coding Visit Charges Inpatient E&M: 33621 Disch Hosp >30min
--- NOTE | 2023-02-03 15:08 | PN.RENAL_ITS ---
Subjective Subjective no new complaints. no hematuria. no edema. breathing is back to baseline. BP is acceptable. Objective Data Objective Data Vital Signs: Vital Signs Temp Pulse Resp BP Pulse Ox O2 Del Method O2 Flow Rate 98.2 F 73 18 153/57 H 95 CPAP 0 02/03/23 14:19 02/03/23 14:19 02/03/23 14:19 02/03/23 14:19 02/03/23 14:46 02/03/23 14:02/03/23 14:46 Oxygen Flow Rate (L/min) [ 0 AMBULATING on Room Air] Oxygen Flow Rate (L/min) [At 0 REST on Room Air] Oxygen Flow Rate (L/min) [5] 2 Oxygen Flow Rate (L/min) [4] 2 Oxygen Flow Rate (L/min) [3] 2 Oxygen Flow Rate (L/min) [2] 2 Oxygen Flow Rate (L/min) 1 Oxygen Delivery Method [5] Nasal Cannula Oxygen Delivery Method [4] Room Air Oxygen Delivery Method [3] Nasal Cannula Oxygen Delivery Method [2] Nasal Cannula Oxygen Delivery Method [1 ( Room Air Initial Baseline)] Oxygen Delivery Method CPAP Weight: 110.132 kg Body Mass Index (BMI) 32.8 Intake & Output: Intake and Output for Last 24 Hours 02/01/23 02/02/23 02/03/23 23:59 23:59 23:59 Intake Total 120 / 120 305.25 / 305.25 Output Total 3075 / 3075 600 / 600 Balance 120 / 120 -2769.75 / -2769.75 -600 / -600 Lab / Micro Data 02/03/23 05:35 02/03/23 05:35 Labs: Laboratory Results - last 24 hr 02/02/23 17:06: POC Glucose 149 H 02/02/23 21:39: POC Glucose 157 H 02/03/23 05:35: WBC 6.1, RBC 2.50 L, Hgb 7.8 L, Hct 23.7 L, MCV 94.8 H, MCH 31.2, MCHC 32.9, RDW Std Deviation 43.7, RDW Coeff of Misael 12.7, Plt Count 134 L, MPV 10.5, Immature Gran % (Auto) 0.500, Neut % (Auto) 75.3 H, Lymph % (Auto) 9.3 L, [place] % (Auto) 10.0, Eos % (Auto) 4.6, Baso % (Auto) 0.3, Absolute Neuts (auto) 4.6, Absolute Lymphs (auto) 0.57 L, Nucleated RBC % 0, Differential Comment SCANNED, Sodium 136, Potassium 4.2, Chloride 106, Carbon Dioxide 24.0, Anion Gap 6, BUN 71 H, Creatinine 4.48 H, Estim Creat Clear Calc 16.36, Est GFR (MDRD) Af Amer 17 L, Est GFR (MDRD) Non-Af 14 L, BUN/Creatinine Ratio 15.8, Glucose 103, Calcium 7.9 L 02/03/23 06:22: POC Glucose 104 02/03/23 12:01: POC Glucose 150 H Micro: Microbiology 01/31/23 02:22 Urine, Clean Catch Urine Culture - Final Culture exhibits no growth. Physical Exam Narrative General: Alert and oriented x3, NAD. HEENT: Normocephalic, atraumatic. Mucous membrane moist without erythema. PERRLA, EOMI. Hearing is intact. Neck: Supple, no JVD. Trachea is midline. No thyromegaly or lymphadenopathy. Cardiovascular: Normal S1, S2. No rubs, murmurs, or gallops. Respiratory: Decreased breath sound at bases bilaterally. No wheezing. Abdomen: Normal bowel sounds, soft, nontender, no guarding or rebound, no o rganomegaly. Extremities: No clubbing or cyanosis. There is 2+ edema of the lower extremity bilaterally. Musculoskeletal: Full passive range of motion, no joint swelling. Psychiatric: Normal mood and affect. Skin: Warm and dry, no rash. Neurologic: Cranial nerve II to XII are grossly intact. No focal neurologic deficits. Assessment & Plan Assessment/Plan (1) THEE (acute kidney injury): (2) Chronic kidney disease, stage 4 (severe): (3) Benign hypertension: (4) CHF exacerbation: PLAN: Plan Impression/Plan: 72-year-old man with past history of chronic kidney disease stage G4/A3, type 2 diabetes mellitus, hypertension, prior stroke, hypothyroidism, neuropathy, asthma, BPH, GERD, and depression. The patient presented to the hospital with acute hypoxic respiratory failure thought to be secondary to decompensated heart failure. Nephrology is following for THEE on CKD. Acute kidney injury on chronic kidney disease stage G4/A3. Came to our office within the last 2 months. His creatinine last year was in the mid ones, recently increased to 3.3 or so. Nephrotic range proteinuria at 7.7 g. He does have history of type 2 diabetes on and off, there was a point he came off diabetes medications since A1c was less than 6. Did not have proteinuria until recently. Worsening renal failure, associated hypertension. Serologies were negative. He was scheduled for a biopsy but was canceled due to high blood pressure. Multiple adjustments to blood pressure medications. S/p biopsy yesterday. No gross hematuria. Hemoglobin did drop a little bit but no obvious bleeding. Hypertension. BP has been significantly high lately. better Acute hypoxic respiratory failure secondary to volume overload. Echocardiogram looks normal essentially. Called [facility]. Final report will not be back till at least tomorrow, possibly next week. Okay to discharge home, he has an appointment in the office tomorrow. Reviewed medication list with the hospitalist.
--- NOTE | 2023-02-03 16:06 | CHAPLAIN ---
Type of Pastoral Visit ___ Initial Visit _x__ Follow-up Visit ___ On-call Visit ___ General Patient Visit ___ Spiritual Assessment ___ Family Conference ___ Bereavement ___ Rapid Response ___ Code Blue ___ Other (describe below) Pastoral Care Referral From _x__ Patient _x__ Family ___ Nurse ___ Physician ___ Manganese Breaker ___ Gas Or Water Meter Installer ___ Other (describe below) Sacrament/Intervention _x__ Active listening ___ Anointing ___ Yazidism ___ Bereavement ___ Communion ___ Jacki exploration ___ ___ Life review ___ Prayer ___ Reconciliation ___ Sacrament of Sick _x__ Supportive presence ___ Wedding ___ Other (describe below) Pastoral Comments patient is resting in bed and spouse is in chair near by; patient is to be discharged today; pt gives the thumbs up and admits to feeling better and encouraged; pt spouse is also glad for this decision to go home and admits that waiting for the test results on the kidney is still hard; offer of support given and appreciated by family
== END 2023-02-03 15:21 | disposition home or self-care (01) | DRG 641 ==
LOC: ED 01-31 00:30 → PCU 01-31 00:43
PROVIDERS: Family Medicine; Radiology Diagnostic Radiology; Admitting Provider Family Medicine; Emergency Provider Emergency Medicine; PCP Nurse Practitioner Family; Visit Provider Internal Medicine
DX: E87.70 Fluid overload, unspecified (principal); I13.0 Hypertensive heart and chronic kidney disease with heart failure and stage 1 through stage 4 chronic kidney disease, or unspecified chronic kidney disease; N18.4 Chronic kidney disease, stage 4 (severe); D63.1 Anemia in chronic kidney disease; E11.22 Type 2 diabetes mellitus with diabetic chronic kidney disease; F03.90 Unspecified dementia, unspecified severity, without behavioral disturbance, psychotic disturbance, mood disturbance, and anxiety; E11.42 Type 2 diabetes mellitus with diabetic polyneuropathy; F32.A Depression, unspecified; E03.9 Hypothyroidism, unspecified; J45.909 Unspecified asthma, uncomplicated; I12.9 Hypertensive chronic kidney disease with stage 1 through stage 4 chronic kidney disease, or unspecified chronic kidney disease; E78.2 Mixed hyperlipidemia; F41.9 Anxiety disorder, unspecified; K21.9 Gastro-esophageal reflux disease without esophagitis; G47.33 Obstructive sleep apnea (adult) (pediatric); E66.9 Obesity, unspecified; N40.0 Benign prostatic hyperplasia without lower urinary tract symptoms; F90.9 Attention-deficit hyperactivity disorder, unspecified type; Z68.31 Body mass index [BMI] 31.0-31.9, adult; Z79.82 Long term (current) use of aspirin; Z79.84 Long term (current) use of oral hypoglycemic drugs; Z79.899 Other long term (current) drug therapy; Z85.818 Personal history of malignant neoplasm of other sites of lip, oral cavity, and pharynx; Z86.73 Personal history of transient ischemic attack (TIA), and cerebral infarction without residual deficits; R09.02 Hypoxemia
CPT/HCPCS: 36415; 71046; 76770; 77012; 80048; 80053; 80061; 81001; 82570; 82962; 83735; 83880; 84300; 84443; 84484; 85025; 85610; 85730; 87086; 88300; 88305; 88313; 88348; 93005; 93306; 94640; 94668; 97110; 97112; 97162; 97165; 97530; 97535; 97802; 99156; 99285; J7050; A4216; J1940